=== PATIENT | female | born 1945 | race African-American/Black ===

== ENCOUNTER 2016-06-28 17:02 | Inpatient (IN) ==
[2016-06-28] MEDS ORDERED: DILTIAZEM 50 MG/10 ML VIAL IV STA (17:33)
[2016-06-28] MEDS ORDERED: METOCLOPRAMIDE 10 MG/2 ML VIAL IV STA (17:33)
[2016-06-28] MEDS ORDERED: ONDANSETRON 4 MG/2 ML VIAL IV STA (17:33)
--- NOTE | 2016-06-28 17:42 | Emergency Department Note ---
Arrival - Arrival Chief Complaint: Shortness of Breath Stated Complaint: SOB ED Nursing Triage Note: Pt c/o SOB, ear pain, and productive cough (yellow sputum) since yesterday. Pt unable to stand for weight. Mode of Arrival: Wheelchair Limitations: No Limitations Source: Patient Time Seen by Provider: 06/28/16 17:33 - History of Present Illness HPI Narrative: This 70-year-old black female hospitalized here in March for SVT and pulmonary embolus presents with 24 hours of increased dyspnea over her baseline. Patient since discharged has had significant dyspnea at rest and exertion and impact has pretty much been bedbound since her discharge between the dyspnea on exertion and advanced arthritic complaints of the knees and ankles. The patient today does not complain of any chest pain or hemoptysis and states she cannot sense that her heart rate is erratic or rapid. However the medication she brings as her daily regimen did not include her amiodarone or Xarelto. She states she thought she was taking these; however, they are not be found in any of her bags. She states she is followed regularly by a Dr. Hoffmann but has not seen him in some time. Currently in her wheelchair at rest she does not appear in any significant discomfort. Family members state that the only medicines they know she takes or what is in her accompanying bag, and again this does not include amiodarone or Xarelto. Onset (ago): hour(s) (Patient presents with 24 hours of increase shortness of breath over her normal complaints.) Allergies/Adverse Reactions: Allergies Allergy/AdvReac Type Severity Reaction Status Date / Time adhesive tape Allergy RASH Unverified 03/26/16 19:05 Penicillins Allergy RASH Unverified 03/26/16 19:04 Home Medications: Home Medications Medication Instructions Recorded Confirmed Type Glimepiride 4 mg PO DAILY 03/26/16 06/28/16 History Letrozole 2.5 mg PO DAILY 03/26/16 06/28/16 History metFORMIN [Glucophage] 500 mg PO BID 03/26/16 06/28/16 History Rivaroxaban [Xarelto] 15 mg PO BID W/MEALS #60 tablet 03/29/16 06/28/16 Rx Ascorbic Acid [Vitamin C] 1,000 mg PO DAILY 06/28/16 06/28/16 History Losartan [Cozaar] 25 mg PO DAILY 06/28/16 06/28/16 History Magnesium Oxide 400 mg PO BID 06/28/16 06/28/16 History Metoprolol Tartrate Tab [Lopressor 50 mg PO BID 06/28/16 06/28/16 History Tab] Review of System - Review of System 12 point system: reviewed and no additional remarkable complaints except as stated - Review of System Constitutional: Present: as per HPI Respiratory: Present: as per HPI Cardiovascular: Present: as per HPI Musculoskeletal: Present: as per HPI Medical,Surgical,& Family Hx - Medical History Cardio: History of: Cardiac Dysrhythmia (psvt 2009, AFIB), Hypertension HEENT: History of: Eye Problem (eye surgery bilat) Endocrine: History of: Diabetes Mellitus (IDDM), Diabetes Mellitus (NIDDM) Respiratory: History of: Pulmonary Embolism - Family History Family History: Reports;: Family Hypertension - Social History Smoking Status: Never smoker Exam Physical Examination: GENERAL: Well developed, well nourished elderly black female in no acute distress. HEENT: Normocephalic. No trauma. Moist mucous membranes. EOMI. PERRLA. ENT NML NECK: Supple. No adenopathy. CARDIAC: Irregular. No murmurs. Heart rate 160 CHEST: Clear to auscultation. No respiratory distress. O2 sat 97% ABDOMEN: Soft. Nontender. Active bowel sounds. EXTREMITIES: No trauma. Pain and crepitation on range of motion of both knees and ankles. No pedal edema. SKIN: No diaphoresis. No rash. NEURO: Alert. Oriented 3. Motor, sensory, vibratory intact. No focal deficits. Vital Signs: Vital Signs Temperature 97.9 F 06/28/16 18:49 Pulse Rate 122 H 06/28/16 18:49 Respiratory Rate 20 06/28/16 18:49 Blood Pressure 143/102 06/28/16 18:49 O2 Sat by Pulse Oximetry 97 06/28/16 17:15 Course - Reevaluation(s) Reevaluation #1: I have advised patient of the serious nature of her illness with a large saddle embolus that will need to be treated per EKOS procedure - Consultations Consultation #1: Discussed with Dr. Ramirez who will take the patient to [facility] for procedure. Results - Labs CBC & BMP: 06/28/16 17:49 06/28/16 17:49 Labs: I reviewed the lab and noted the greatly elevated d-dimer - Impressions EKG mixed supraventricular tachycardia at 160 this tracing the patient jumped to heart rate of 230. With left axis deviation probable old septal VA and diffuse ST changes. Shortly after this tracing the patient jumped to a rate of 230. EKG post 300 mg amiodarone: Atrial fibrillation at [address] depression. No acute injury pattern noted. - Diagnostic Findings Procedure: Chest x-ray: image reviewed by me, report reviewed by me (Plain film : No acute disease), CT - chest: image reviewed by me, report reviewed by me ( CTA: Large saddle embolus) Disposition Clinical Impression: Saddle embolus, Recurrent atrial fibrillation Case discussed with: patient, patient's family Disposition: Still a Patient Condition: Critical Time of Disposition: 19:07
[2016-06-28] MEDS ORDERED: ENOXAPARIN 100 MG/ML SYRINGE SUBCUT STA (17:46)
[2016-06-28] MEDS ORDERED: METOCLOPRAMIDE 10 MG/2 ML VIAL ONE (17:46)
[2016-06-28] MEDS ORDERED: DILTIAZEM 50 MG/10 ML VIAL IV ONE (17:47)
[2016-06-28] MEDS ORDERED: ONDANSETRON 4 MG/2 ML VIAL ONE (17:47)
[2016-06-28] MEDS ORDERED: AMIODARONE INJ 150 MG in DEXTROSE 5% 100 ML IV ONE (17:51)
[2016-06-28] MEDS ORDERED: AMIODARONE 150 MG/3 ML VIAL ONE ×2 (17:58→18:00)
[2016-06-28] MEDS ORDERED: DILTIAZEM INJ 125 MG in SODIUM CHLORIDE 0.9% 100 ML IV SCH (18:00)
--- NOTE | 2016-06-28 18:08 | XRay Report ---
XR chest 1V portable Indication: Shortness of breath Comparison: 26 March 2016 Findings: The heart and mediastinum are stable in size and configuration. The pulmonary vascularity is normal in caliber. No lung infiltrates, effusions, pneumothorax or other abnormality is demonstrated. Impression: No acute cardiopulmonary disease. PROCEDURE INTERPRETED AT [facility] DEPARTMENT OF RADIOLOGY Final Report Signed by: Dr. Koko Hickman
[2016-06-28 18:16] LABS: Basophils % 0.6 % (0.0-0.8); Eosinophils % 0.7 % (0.00-10.9); Hematocrit 38.3 VOL% (35.7-47.0); Hemoglobin 11.6 GM/DL (12.0-16.0); Immature Granulocytes % 0.4 %; Immature Granulocytes Absolute 0.02 #; Lymphocytes # 1.9 10*3/uL (1.4-4.0); Mean Corpuscular HGB Conc 30.3 GM/DL (32-36); Mean Corpuscular Hemoglobin 29 PG (27-34); Mean Corpuscular Volume 94.3 FL (87-102); Mean Platelet Volume 11.4 FL (9.6-12.0); Monocytes # 0.4 10*3/uL (0.11-0.8); Monocytes % 7.5 % (1.7-12.7); Neutrophils % 55.8 % (38.7-73.9); Platelet Count 236 T/CUMM (130-400); Red Blood Count 4.06 MC/CUMM (3.8-5.5); Red Cell Distribution Width 19.5 % (9.3-17.3); White Blood Count 5.5 T/CUMM (4-12)
[2016-06-28 18:28] LABS: INR 1.2; PT Patient Result 12.8 SECS; Partial Thromboplastin Time 27.7 SECS (0-40)
[2016-06-28 18:37] LABS: Albumin 3.4 G/DL (3.4-5.0); Bilirubin,Total 0.9 MG/DL (0.2-1.0); Total Protein 9.2 G/DL (6.4-8.3)
[2016-06-28 18:38] LABS: Magnesium 2.2 MG/DL (1.8-2.4); Osmolality,Calculated 288.4 MOS/KG (273-304); Potassium 3.5 MMOL/L (3.5-5.1)
--- NOTE | 2016-06-28 18:38 | EKG Report ---
Stationary ECG Study [facility] ER Test Date: 06/28/2016 5:22:07 PM Pat Name: VANE BOTELLO Department: Room: Gender: F Technical Consultant: Israel Rivas : 1945 Requested by: John Ibrahim Order Number: [id number] Reading MD: JOSH WATTS Intervals [place] Rate: 160 P: 999 ME: 0 QRS: -68 QRSD: 108 T: 93 QT: 281 QTc: 370 Interpretive Statements ATRIAL FIBRILLATION WITH RAPID VENTRICULAR RESPONSE LEFT AXIS DEVIATION POOR R-WAVE PROGRESSION Electronically Signed On 06-28-16 18:39:48 CDT by JOSH WATTS [email or web address]
[2016-06-28 18:42] LABS: Troponin I Only 0.075 NG/ML (0.00-0.045)
[2016-06-28] MEDS ORDERED: ENOXAPARIN 100 MG/ML SYRINGE SUBCUT ONE (19:00)
--- NOTE | 2016-06-28 19:09 | CT Report ---
CT chest pulmonary embolism Indication: Recurrent pulmonary embolism Comparison: 26 March 2016 Technique: Axial CT imaging of the chest is performed with intravenous contrast. Contrast dose is 80 cc of Omnipaque 350. Findings: Large amount of thrombus is present in both pulmonary arteries extending into the branches of both upper and lower lobes. No other abnormality is identified in the pulmonary arteries or veins. The pulmonary vessel caliber is within normal limits. The heart, mediastinum and great vessels appear within normal limits. Lung parenchyma shows no evidence of airspace disease or abnormal density. No effusion or pneumothorax is present. Impression: Extensive pulmonary thromboembolism as described above. No other acute process demonstrated. This CT exam was performed using one or more the following dose reduction techniques: Automated exposure control, adjustment of the MA and/or KV according to patient size, or use of iterative reconstruction technique. PROCEDURE INTERPRETED AT [facility] DEPARTMENT OF RADIOLOGY Final Report Signed by: Dr. Koko Hickman
[2016-06-28] MEDS ORDERED: LIDOCAINE 1% 20 ML VIAL ONE (19:26)
[2016-06-28] MEDS ORDERED: HEPARIN/NACL 0.9% 2 UNITS/ML 1,000 ML IV ONE (19:26)
--- NOTE | 2016-06-28 19:44 | Cardiology History & Physical ---
History of Present Illness History of present illness: Cardiology note history and physical 70-year-old woman brought in by her daughter Juanis with increasing shortness of breath and palpitations. Patient had SVT rate around 220 and converted to atrial fibrillation per Dr. Guzman CT the chest shows large bilateral pulmonary emboli with sliver of saddle embolus. She has elevated troponin, elevated d- dimer, Elevated BNP 662. Blood pressure is currently 120/70 pulse is 110 and irregular O2 sat is 100% on 3 L cannula. She is alert but hard of hearing and dyspneic to conversation. Patient has a history of SVT and right pulmonary embolus diagnosed March 26, 2016. She was treated with Lovenox and amiodarone and converted to sinus rhythm. According to Dr. Messer's note, this was her second episode of SVT and pulmonary embolus and he told the patient that she will need lifelong anticoagulation. The patient a longer taking Xarelto. She apparently stopped amiodarone due to rash. I have personally reviewed all of her medications. Currently she is taking metoprolol 50 mg twice daily, mag oxide 4 mg twice daily , losartan 25 mg daily, metformin 500 mg twice daily, vitamin C daily, letrozole 2.5 milligrams daily and Amaryl 4 mg daily. The patient does not know the names of her medications. She clearly is not taking any anticoagulation. Chronic hypertension for about 10 years. Type 2 diabetes. No history of stroke. Lifetime non-smoker and nondrinker. 5 feet 11 inches tall 210 pounds. The patient is quite sedentary due to arthritic knees and hips which limits her mobility. She has chronic dyspnea and easy fatigability which has clearly gotten worse. Amiodarone causes rash. INR 1.2 d-dimer 14.6 sodium 140 Potassium 3.5 chloride 104 CO2 21 BUN 14 creatinine 1.3 glucose 263 Magnesium 2.2 AST 28 ALT 18 Troponin 0.075 BNP 662 albumin 3.4 the patient lives with her daughter in [place]. She has 2 daughters and 6 grandchildren. Her local doctor is Fam Carpio in [place]. Blood pressure 120/70 pulse 110 irregular respirations 26 O2 sat high percent on 3 L cannula. The patient is edentulous. She does not wear dentures. She is dyspneic to conversation. No carotid bruit. Decreased breath sounds bilaterally with few rhonchi in the right base irregular rhythm no murmur abdomen obese soft benign femoral pulses are 2+ distal pulses are 1+. She has diabetic skin changes on her lower extremities. 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 Noncompliant with Xarelto. The patient is taking no anticoagulation at this time Hypertension Diabetes Obesity Sedentary and deconditioned Hard of hearing Lifetime non-smoker Plan Emergent Ekos bilateral pulmonary artery catheters with localized TPA infusion This patient will need lifelong anticoagulation I reviewed the CT of the chest with the her daughter Juanis and with Dr. Guzman to impress upon her the critical situation that we are facing, and the need for lifelong anticoagulation. According to Dr. Messer's note, this is her third PE. Home Medications Medication Instructions Recorded Confirmed Type Glimepiride 4 mg PO DAILY 03/26/16 06/28/16 History Letrozole 2.5 mg PO DAILY 03/26/16 06/28/16 History metFORMIN [Glucophage] 500 mg PO BID 03/26/16 06/28/16 History Rivaroxaban [Xarelto] 15 mg PO BID W/MEALS #60 tablet 03/29/16 06/28/16 Rx Ascorbic Acid [Vitamin C] 1,000 mg PO DAILY 06/28/16 06/28/16 History Losartan [Cozaar] 25 mg PO DAILY 06/28/16 06/28/16 History Magnesium Oxide 400 mg PO BID 06/28/16 06/28/16 History Metoprolol Tartrate Tab [Lopressor 50 mg PO BID 06/28/16 06/28/16 History Tab] Allergies Allergy/AdvReac Type Severity Reaction Status Date / Time adhesive tape Allergy RASH Unverified 03/26/16 19:05 Penicillins Allergy RASH Unverified 03/26/16 19:04 Medical,Surgical,& Family Hx - Medical History Cardio: History of: Cardiac Dysrhythmia (psvt 2009, AFIB), Hypertension HEENT: History of: Eye Problem (eye surgery bilat) Endocrine: History of: Diabetes Mellitus (IDDM), Diabetes Mellitus (NIDDM) Respiratory: History of: Pulmonary Embolism - Family History Family History: Reports;: Family Hypertension - Social History Smoking Status: Never smoker Cardiology Physical Exam - Constitutional Vitals: Vital Signs Temp Pulse Resp BP Pulse Ox 97.9 F 122 H 20 143/102 97 06/28/16 18:49 06/28/16 18:49 06/28/16 18:49 06/28/16 18:49 06/28/16 17:15 Intake and Output 06/28/16 06/28/16 06/28/16 07:59 15:59 23:59 Intake Total Balance Intake: IV Cordarone Inj 150 mg In D5 100 ml @ 618 mls/hr IV ONCE ONE Rx#:[id number] Other: Weight 99.79 kg Patient Weight 06/28/16 23:59 Weight 99.79 kg Result/EKG - Labs CBC & BMP: 06/28/16 17:49 06/28/16 17:49 Labs: Laboratory Results - last 24 hr 06/28/16 06/28/16 06/28/16 17:49 17:49 17:49 WBC 5.5 RBC 4.06 Hgb 11.6 L Hct 38.3 MCV 94.3 MCH 29 MCHC 30.3 L RDW 19.5 H Plt Count 236 MPV 11.4 Neut % (Auto) 55.8 Lymph % (Auto) 35.0 [place] % (Auto) 7.5 Eos % (Auto) 0.7 Baso % (Auto) 0.6 Neut # (Auto) 3.0 Lymph # (Auto) 1.9 [place] # (Auto) 0.4 Eos # (Auto) 0.0 Baso # (Auto) 0.0 Immature Gran % 0.4 Nucleated RBC % 0.0 Immature Gran # 0.02 Nucleated RBCs # 0.00 INR 1.2 PT Patient/Control Mix 12.8 D-Dimer, Quantitative Circ Anticoag PTT 27.7 Sodium 140 Potassium 3.5 Chloride 104 Carbon Dioxide 21 Anion Gap 18.5 H BUN 14 Creatinine 1.30 H GFR Calculation 60 BUN/Creatinine Ratio 10.00 Glucose 263 H Calculated Osmolality 288.4 Calcium 9.0 Magnesium 2.2 Total Bilirubin 0.90 AST 28 ALT 18 Alkaline Phosphatase 98 Total Creatine Kinase CK-MB (CK-2) Troponin I B-Natriuretic Peptide Total Protein 9.2 H Albumin 3.4 Globulin 5.8 H Albumin/Globulin Ratio 0.5 L 06/28/16 06/28/16 06/28/16 17:49 17:49 17:49 WBC RBC Hgb Hct MCV MCH MCHC RDW Plt Count MPV Neut % (Auto) Lymph % (Auto) [place] % (Auto) Eos % (Auto) Baso % (Auto) Neut # (Auto) Lymph # (Auto) [place] # (Auto) Eos # (Auto) Baso # (Auto) Immature Gran % Nucleated RBC % Immature Gran # Nucleated RBCs # INR PT Patient/Control Mix D-Dimer, Quantitative 14.6 Circ Anticoag PTT Sodium Potassium Chloride Carbon Dioxide Anion Gap BUN Creatinine GFR Calculation BUN/Creatinine Ratio Glucose Calculated Osmolality Calcium Magnesium Total Bilirubin AST ALT Alkaline Phosphatase Total Creatine Kinase 52 CK-MB (CK-2) 1.0 Troponin I 0.075 H B-Natriuretic Peptide 662 H Total Protein Albumin Globulin Albumin/Globulin Ratio
[2016-06-28] MEDS ORDERED: HYDROmorphone 2 MG/1 ML VIAL ONE (19:54)
[2016-06-28] MEDS ORDERED: MIDAZOLAM 2 MG/2 ML VIAL ONE (19:54)
[2016-06-28] MEDS ORDERED: ALTEPLASE 2 MG VIAL ONE (20:26)
[2016-06-28] MEDS ORDERED: LABETALOL 20 MG/4 ML SYRINGE IV ONE (21:11)
[2016-06-28] MEDS ORDERED: ONDANSETRON 4 MG/2 ML VIAL IV PRN (21:21)
[2016-06-28] MEDS ORDERED: ALTEPLASE 12 MG in SODIUM CHLORIDE 0.9% 240 ML IV SCH (21:30)
[2016-06-28] MEDS ORDERED: HEPARIN DRIP 25,000 UNITS/500 ML PREMIX IV SCH ×2 (21:30)
--- NOTE | 2016-06-28 21:39 | Event Note ---
Procedure note Bilateral EKOS pulmonary artery catheters with localized TPA infusion Pre-op diagnosis large bilateral pulmonary emboli with partial saddle embolus and elevated troponin, elevated BNP, dilated right ventricle with tachycardia Postop diagnosis same. The patient status post right pulmonary embolus March 2016. She failed to continue to take her Xarelto. The patient is quite sedentary and essentially wheelchair-bound. She returned with progressive shortness of breath and CT the chest showed massive bilateral pulmonary emboli and a partial saddle thrombus. The right femoral groin was prepped and draped in sterile fashion and local anesthesia was achieved with a filtration 1% Xylocaine. Using a Cook needle the right femoral vein was cannulated twice, and 2 separate 6 [place] sheaths were inserted into the right femoral vein. A long exchange wire was then used over pigtail catheter to engage the right pulmonary artery. The pigtail catheter exchanged for a EKOS pulmonary artery catheter which was placed into the right pulmonary artery. The ultrasound catheter was then introduced and passed into the right pulmonary artery. The side ports were then flushed and coolant solution was started and localized TPA was delivered through the side- port. Using the long J exchange wire and the pigtail catheter the procedure was then repeated and the left pulmonary artery was cannulated. The EKOS catheter was introduced over the wire and placed into the left pulmonary artery and the ultrasound catheter was introduced. The side ports were flushed and the coolant solution with normal saline was started and the TPA infusion was also started via the side-port. The sheaths were then sutured in place. Currently blood pressure is 100/73 pulse is 110 and O2 sat is 91 percent on 2 L cannula. The patient was transported to CCU and guarded condition. She will remain on TPA infusion for 12 hours .lab data and echo will be checked in the morning. Findings and plan discussed with her daughter Juanis. This patient needs lifelong anticoagulation.
[2016-06-28 22:37] LABS: Apearance,Urine Slightly Hazy (Clear); Bacteria,Urine Many /HPF (Few); Bilirubin,Urine Negative (Negative); Blood, Urine Negative (Negative); Glucose,Urine (UA) Negative (Negative); Ketones,Urine Negative (Negative); Mucus,Urine Occasional /LPF (Occasional); Nitrite,Urine Negative (Negative); Protein,Urine 30 MG/DL; Urine Color Yellow (Yellow); Urine Specific Gravity 1.029 (1.001-1.035); WBC,Urine 1 /HPF (0-6)
[2016-06-28 23:30] LABS: INR 1.3; PT Patient Result 14.5 SECS; Partial Thromboplastin Time 36.5 SECS (0-40)
[2016-06-29 05:26] LABS: Basophils % 0.5 % (0.0-0.8); Eosinophils % 0.5 % (0.00-10.9); Hemoglobin 10.2 GM/DL (12.0-16.0); Immature Granulocytes % 0.5 %; Immature Granulocytes Absolute 0.02 #; Lymphocytes # 0.9 10*3/uL (1.4-4.0); Lymphocytes % 21.4 % (21.3-54.2); Mean Corpuscular HGB Conc 30.9 GM/DL (32-36); Mean Corpuscular Hemoglobin 29 PG (27-34); Mean Corpuscular Volume 94.6 FL (87-102); Mean Platelet Volume 10.5 FL (9.6-12.0); Monocytes # 0.4 10*3/uL (0.11-0.8); Monocytes % 9.3 % (1.7-12.7); NRBC # 0.02 10*3/uL; Neutrophils # 2.7 10*3/uL (1.4-7.4); Neutrophils % 67.8 % (38.7-73.9); Platelet Count 168 T/CUMM (130-400); Red Blood Count 3.49 MC/CUMM (3.8-5.5); Red Cell Distribution Width 19.5 % (9.3-17.3)
[2016-06-29 05:33] LABS: INR 1.2
[2016-06-29 06:02] LABS: Calcium 8.3 MG/DL (8.5-10.1); Osmolality,Calculated 287.3 MOS/KG (273-304); Potassium 3.7 MMOL/L (3.5-5.1)
--- NOTE | 2016-06-29 07:25 | Cardiology Progress Note ---
Cardiology - PN: Subj Interval history: Cardiology note Day 1 status post Ekos bilateral pulmonary artery catheters with localized TPA infusion for recurrent large bilateral pulmonary emboli Alert and responsive PO2 is 97 on 50% Ventimask Telemetry shows sinus tach rate 100-110 Blood pressure 156/104 Regular rhythm no murmur Decreased breath sounds few crackles on the right side Right groin soft and dry Distal pulses 2+ Lab data today White count 4.0 hemoglobin 10.2 hematocrit 33.0 platelet count 168k Sodium 141 potassium 3.7 chloride 109 CO2 20 BUN 14 creatinine 0.80 glucose 208 Impression This is the patient's third documented pulmonary embolus. This one was due to noncompliance with Xarelto. 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 Horowitz. I believe patient needs IVC filter. TPA infusion finishes around 9:30 AM, and if Dr. Horowitz agrees, patient could be sent to radiology with venous sheath in place Exam (Progress Note) - Constitutional Vitals: Period Temp Pulse Resp BP Sys/Contreras Pulse Ox Last 24 Hr 96.7 F-97.1 F 101-112 14-28 94-149/66-108 89-97 Result/EKG - Labs CBC & BMP: 06/29/16 04:51 06/29/16 04:51 Labs: Laboratory Results - last 24 hr 06/28/16 06/28/16 06/29/16 22:20 23:02 04:51 WBC RBC Hgb Hct MCV MCH MCHC RDW Plt Count MPV Neut % (Auto) Lymph % (Auto) [place] % (Auto) Eos % (Auto) Baso % (Auto) Neut # (Auto) Lymph # (Auto) [place] # (Auto) Eos # (Auto) Baso # (Auto) Immature Gran % Nucleated RBC % Immature Gran # Nucleated RBCs # INR 1.3 1.2 PT Patient/Control Mix 14.5 13.0 Fibrinogen 296 Circ Anticoag PTT 36.5 D Sodium Potassium Chloride Carbon Dioxide Anion Gap BUN Creatinine GFR Calculation BUN/Creatinine Ratio Glucose Calculated Osmolality Calcium Urine Color Yellow Urine Appearance Slightly hazy Urine pH 5.0 Ur Specific [place] 1.029 Urine Protein 30 Urine Glucose (UA) Negative Urine Ketones Negative Urine Blood Negative Urine Nitrate Negative Urine Bilirubin Negative Urine Urobilinogen 2.0 H Urine Leukocytes Negative Urine WBC 1 Urine Bacteria Many Urine Mucus Occasional Ur Culture Indicated? Not indicated 06/29/16 06/29/16 04:51 04:51 WBC 4.0 RBC 3.49 L Hgb 10.2 L Hct 33.0 L MCV 94.6 MCH 29 MCHC 30.9 L RDW 19.5 H Plt Count 168 D MPV 10.5 Neut % (Auto) 67.8 Lymph % (Auto) 21.4 [place] % (Auto) 9.3 Eos % (Auto) 0.5 Baso % (Auto) 0.5 Neut # (Auto) 2.7 Lymph # (Auto) 0.9 L [place] # (Auto) 0.4 Eos # (Auto) 0.0 Baso # (Auto) 0.0 Immature Gran % 0.5 Nucleated RBC % 0.5 Immature Gran # 0.02 Nucleated RBCs # 0.02 INR PT Patient/Control Mix Fibrinogen Circ Anticoag PTT Sodium 141 Potassium 3.7 Chloride 109 H Carbon Dioxide 20 L Anion Gap 15.7 H BUN 14 Creatinine 0.80 GFR Calculation 107 BUN/Creatinine Ratio 17.00 Glucose 208 H Calculated Osmolality 287.3 Calcium 8.3 L Urine Color Urine Appearance Urine pH Ur Specific [place] Urine Protein Urine Glucose (UA) Urine Ketones Urine Blood Urine Nitrate Urine Bilirubin Urine Urobilinogen Urine Leukocytes Urine WBC Urine Bacteria Urine Mucus Ur Culture Indicated?
--- NOTE | 2016-06-29 07:27 | Pulmonology Consult Note ---
History of Present Illness Chief complaint: Shortness of breath, palpitations History of present illness: Ms. Ricketts is a 70 year old female came in with increased shortness of breath and had atrial fibrillation with a rapid ventricular response. She had a CT PE protocol showing massive pulmonary embolism. Very large volume going to both main pulmonary arteries. She had an elevated BNP and an elevated d-dimer. D- dimer 14.6 BNP was 662. She was tachycardic even after treatment of her tachyarrhythmias. She was taken to the Pharmac[facility] and had an EKOS procedure and is now on an infusion of TPA. I was asked to see her to help make a decision about treatment going forward. Looking back at her records and reviewing CT scans she had a pulmonary embolus to the right lower lobe [place] [address] scan. She had a second 1 in March [address] scan. Both of these were relatively small volume and primarily involving the right lower lobe. The one that she said now is a massive pulmonary embolus and life- threatening. There is some question as to whether the patient was taking her anticoagulants. She was sent home on Xarelto 15 mg twice a day in March. Based on the volume of the pulmonary embolus on CT scan alone, patient is a candidate for an IVC filter. Impression #1 recurrent pulmonary thromboembolic disease, massive with elevated BNP, large volume of embolism, tachycardia, enlarged right ventricle CT scan. This was appropriately treated with TPA. I certainly agree that an IVC filter is indicated. It is not clear whether patient was taking Xarelto or not, but by the volume of the pulmonary embolus along she needs a filter. 2. Diabetes mellitus 3. Hypertension 4. Severe degenerative arthritis with inactivity. My recommendations are as above. I was unable to get into the assessment/plan portion of the report Home Medications Medication Instructions Recorded Confirmed Type Glimepiride 4 mg PO DAILY 03/26/16 06/28/16 History Letrozole 2.5 mg PO DAILY 03/26/16 06/28/16 History metFORMIN [Glucophage] 500 mg PO BID 03/26/16 06/28/16 History Rivaroxaban [Xarelto] 15 mg PO BID W/MEALS #60 tablet 03/29/16 06/28/16 Rx Ascorbic Acid [Vitamin C] 1,000 mg PO DAILY 06/28/16 06/28/16 History Losartan [Cozaar] 25 mg PO DAILY 06/28/16 06/28/16 History Magnesium Oxide 400 mg PO BID 06/28/16 06/28/16 History Metoprolol Tartrate Tab [Lopressor 50 mg PO BID 06/28/16 06/28/16 History Tab] Allergies Allergy/AdvReac Type Severity Reaction Status Date / Time adhesive tape Allergy RASH Unverified 03/26/16 19:05 Penicillins Allergy RASH Unverified 03/26/16 19:04 12 point system: reviewed and no additional remarkable complaints except as stated - Constitutional Constitutional: Present: fatigue - Cardiovascular Cardiovascular: Present: dyspnea, dyspnea on exertion, palpitations - Respiratory Respiratory: Present: dyspnea, dyspnea on exertion - Musculoskeletal Musculoskeletal: Present: arthralgias (She is very inactive due to severe arthritis involving her knees. Mostly in wheelchair.) Exam (Pulmonay) H&P - Constitutional Vitals: Period Temp Pulse Resp BP Sys/Contreras Pulse Ox Last 24 Hr 96.7 F-97.1 F 101-112 14-28 94-149/66-108 89-97 Exam: Pulse is 110 and fairly regular but on EKG looks like atrial flutter. Blood pressure 120 systolic. Vital signs otherwise normal. O2 sat 96% on 50% facemask oxygen. Pupils react to light. Throat is clear. Neck supple no bruits. Chest sounds clear equal breath sounds. Heart normal rate and rhythm no murmurs no rubs no gallops. Abdomen soft nontender no masses. Bowel sounds present. Extremities no clubbing or cyanosis. She has a trace of edema bilaterally. Calves are nontender. Medical,Surgical,& Family Hx - Medical History Cardio: History of: Cardiac Dysrhythmia (psvt 2009, AFIB), Hypertension HEENT: History of: Eye Problem (eye surgery bilat, cataracts) Endocrine: History of: Diabetes Mellitus (IDDM), Diabetes Mellitus (NIDDM) Respiratory: History of: Bronchitis, Pulmonary Embolism, Pneumonia - Family History Family History: Comment Only: Family Cancer (breast cancer, mom), Family Diabetes (2 brothers ), Family Hypertension (brother), Family Stroke (brother) - Social History Smoking Status: Never smoker Frequency of Alcohol Use: None Results - Labs CBC & BMP: 06/29/16 04:51 06/29/16 04:51 Lab Results: I have reviewed the past 24 hour labs - Diagnostic Findings Procedure: CT - chest: image reviewed by me (Large pulmonary emboli to bothPulmonary arteries)
[2016-06-29] MEDS ORDERED: HEPARIN DRIP 25,000 UNITS/500 ML PREMIX IV SCH (08:30)
[2016-06-29] MEDS: GLIMEPIRIDE 4 MG TABLET PO SCH (08:52)
[2016-06-29] MEDS: MAGNESIUM OXIDE 400 MG TABLET PO SCH ×2 (08:52→20:48)
[2016-06-29] MEDS: metFORMIN 500 MG TABLET PO SCH ×2 (08:52→20:48)
[2016-06-29] MEDS: ASCORBIC ACID 500 MG TABLET PO SCH (08:52)
[2016-06-29] MEDS: LETROZOLE 2.5 MG TABLET PO SCH (08:52)
[2016-06-29] MEDS: METOPROLOL TARTRATE 50 MG TABLET PO SCH ×2 (08:52→20:47)
--- NOTE | 2016-06-29 08:52 | EKG Report ---
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
--- NOTE | 2016-06-29 09:29 | IR History and Physical Update ---
IR Pre-Procedure - History and Physical H&P was reviewed, the patient examined and there: are no changes in the patients condition since last H&P was completed. Reason for procedure:: 70-year-old female with recurrent pulmonary emboli. Questionable compliance with anticoagulation as an outpatient. Underwent EKOS thrombolyzes of PE overnight. Treatment is now complete, and primary service requesting IVC filter placement. - Dictation Physical: refer to H&P completed by admitting physician - Physical Exam Vital Signs: Last Vital Signs Temp 97.0 F L 06/29/16 04:00 Pulse 112 H 06/29/16 06:00 Resp 22 06/29/16 06:00 BP 146/105 06/29/16 06:00 Pulse Ox 96 06/29/16 06:00 Mental Status: alert and oriented - Sedation IR anesthesia plan for sedation: none ASA Class: III - Risks Risks: Procedures explained. Risks discussed include, but not limited to, the following:[IVC filter thrombosis, vascular injury, filter fracture, and ability to retrieve filter should we attempt retrieval in the future] All questions answered. The following alternatives were discussed:[Anticoagulation] Risks and benefits discussed with: patient Consent obtained from: patient Assessment and Plan - Time spent with patient Time spent with patient: Less than 30 minutes (1) Pulmonary embolus, right Status: Chronic Assessment and plan: Assessment: Recurrent PE, questionable compliance with outpatient anticoagulation. Plan: IVC filter placement today through existing access. Current Visit: Yes
[2016-06-29 09:49] LABS: Partial Thromboplastin Time 33.5 SECS (0-40)
--- NOTE | 2016-06-29 10:20 | Post Interventional Procedure ---
Pre-op diagnosis: PE, noncompliance on outpatient anticoag Post-op diagnosis: same Procedure: IVC filter placement Contrast: Omni 350, 30 cc Flouroscopy: 0.9 min Radiologist: Jay Painter Specimens: none sent Estimated blood loss: none Complications: none Condition: stable Assessment and Plan - Time spent with patient Time spent with patient: Less than 30 minutes (1) Pulmonary embolus, right Status: Chronic Assessment and plan: Assessment: Recurrent PE, questionable compliance with outpatient anticoagulation. Plan: IVC filter placement today through existing access. Current Visit: Yes
--- NOTE | 2016-06-29 10:45 | Interventional Radiology Rpt ---
IR IVC filter placement Indication: Recurrent PE. Noncompliance on outpatient anticoagulation. Mechanical thrombolysis overnight. IVC FILTER PLACEMENT Description: A formal timeout was performed. Maximum sterile barrier technique was used. The right groin was prepped and draped in a sterile fashion, including 2 right common femoral vein sheaths. Through the cephalad sheath, an inferior venacavogram was performed. Normal anatomy was present. The lowest renal vein inflow was identified on the left. The sheath was exchanged over a wire for a Kajal IVC filter sheath. The filter was then advanced and deployed such that the apex is at the lowest renal vein inflow. The deployment apparatus was removed. The second sheath was removed as well. Hemostasis achieved with manual compression. Medications: None. Contrast: Omnipaque 350, 30 cc. Fluoroscopy: 0.9 minutes. Impression: Infrarenal IVC filter placement as described. If the intent is retrieval of the IVC filter, recommend scheduling retrieval to be performed within the next 2-3 months. PROCEDURE INTERPRETED AT [facility] DEPARTMENT OF RADIOLOGY Final Report Signed by: Jay Painter M.D.
--- NOTE | 2016-06-29 10:49 | Event Note ---
Event note Chart addendum The patient underwent EKOS bilateral pulmonary artery catheters and localized TPA infusion last night. In addition, she received a contrast injection in the left pulmonary artery with a pigtail catheter to assist with catheter placement.
--- NOTE | 2016-06-29 17:50 | ECHO Report ---
Eleanor Ricketts Exam Date: 06/29/2016 09:04 Referring Physician: Technologist: Tatiana Brewster Age: 70 Ht (in): 71 Wt (lb): 220 Gender: F Exam Location: [facility] Echo Indications: diabetes, hypokalemia, SVT, A Fib, Rt. pulmonary embolus BP: 146 / 105 HR: 112 Rhythm: tachycardia Technical Quality: IMPRESSIONS Mild - moderate concentric left ventricular hypertrophy with diastolic dysfunction. Left ventricular ejection fraction is estimated at 20 %. Normal right ventricular size. Normal right atrial size. Moderately increased left atrial diameter. Mildly thickened mitral valve with mild mitral regurgitation. Aortic valve sclerosis without stenosis or regurgitation. Morphologically normal tricuspid valve. Moderate tricuspid valve regurgitation. Tricuspid regurgitation velocities suggest a PAP of 34.1 mmHg + RAP. Morphologically normal pulmonic valve. No pericardial effusion. Normal size aortic root and proximal ascending aorta. MEASUREMENTS (Male / Female) Normal Values 2D ECHO LV Diastolic Diameter PLAX 5.0 cm 4.2 - 5.9 / 3.9 - 5.3 cm LV Systolic Diameter PLAX 4.2 cm LV Fractional Shortening PLAX 16.4 % IVS Diastolic Thickness 1.2 cm 0.6 - 1.0 / 0.6 - 0.9 cm LVPW Diastolic Thickness 1.2 cm 0.6 - 1.0 / 0.6 - 0.9 cm RV Internal Dim ED PLAX 3.1 cm Aortic Root Diameter 3.4 cm LA Systolic Diameter LX 4.6 cm 3.0 - 4.0 / 2.7 - 3.8 cm DOPPLER TR Peak Velocity 292.0 cm/s TR Peak Gradient 34.1 mmHg FINDINGS Left Ventricle Mild - moderate concentric left ventricular hypertrophy with diastolic dysfunction.left ventricular ejection fraction is estimated at 20 %. Right Ventricle Normal right ventricular size. Right Atrium Normal right atrial size. Left Atrium Moderately increased left atrial diameter. Mitral Valve Mildly thickened mitral valve with mild mitral regurgitation. Aortic Valve Aortic valve sclerosis without stenosis or regurgitation. Tricuspid Valve Morphologically normal tricuspid valve. Moderate tricuspid valve regurgitation. Tricuspid regurgitation velocities suggest a PAP of 34.1 mmHg + RAP. Pulmonic Valve Morphologically normal pulmonic valve. Pericardium No pericardial effusion. Aorta Normal size aortic root and proximal ascending aorta. Karan Escalona MD (Electronically Signed) Final Date: 29 Jun 2016 17:48
[2016-06-29 21:48] LABS: Partial Thromboplastin Time 28.7 SECS (0-40)
--- NOTE | 2016-06-30 06:48 | Pulmonology Progress Note ---
Pulmonary - PN: Subj Interval history: This 70-year-old lady came in with a massive pulmonary embolus. She had TPA infusion per EKOS device. Being started back on Xarelto after completing that. She has an IVC filter now. She remains tachycardic. She is somewhat hypoxemic requiring facemask oxygen to get her O2 sat in the mid 90s. We will try her on some nasal oxygen today. Her echocardiogram has shown a severe cardiomyopathy with ejection fraction 20%. This is a new finding. Cardiology is addressing. Patient feels better and is eating. Okay with me to move to the floor. Unable to get into the assessment and plan section of the electronic medical record today. Impression #1 massive pulmonary embolism continue with Xarelto, agree with IVC filter, okay to get up and ambulate some today. #2 cardiomyopathy defer to cardiology. Exam (Progress Note) - Constitutional Vitals: Period Temp Pulse Resp BP Sys/Contreras Pulse Ox Last 24 Hr 96.9 F-98.0 F 95-120 16-29 111-156/80-113 92-100 Exam: Patient's alert oriented vital signs show pulse in the 120s. O2 sat 95% on 40% facemask. Blood pressure 125/90. Pupils react to light. Throat is clear. Neck supple no bruits. Chest is clear I do not hear any wheezes or rales. Heart rapid rate, normal rhythm no murmurs. Abdomen soft nontender no masses. Extremities no clubbing cyanosis trace of edema. Calves nontender. Results - Labs CBC & BMP: 06/29/16 04:51 06/29/16 04:51 Lab Results: I have reviewed the past 24 hour labs
--- NOTE | 2016-06-30 06:50 | Cardiology Progress Note ---
Cardiology - PN: Subj Interval history: Cardiology note Day 2 status post EKOS with localized TPA infusion for recurrent large bilateral pulmonary emboli Day 1 status post IVC filter Telemetry shows sinus tach rate 110 O2 sat 95% 2 L blood pressure 128/92 No chest pain Decreased breath sounds few rhonchi in the right base no wheezing Regular rhythm but no murmur Abdomen soft benign Right groin has a small ecchymotic bruise but looks good no bruit Echo shows ejection fraction of 20% severe global hypokinesis mildly dilated left atrium, moderate TR PA pressure 45 with no effusion Impression Status post third documented pulmonary embolus Noncompliant with Xarelto Status post IVC filter placement yesterday status post right pulmonary embolus March 2016 Status post pulmonary embolus November 2008 Chronic hypertension Lifetime non-smoker Cardiomyopathy. Echo shows ejection fraction of 20% PA pressure 45 Severe bilateral osteoarthritis knees and left hip which limits her mobility Plan Xarelto 15 mg twice daily Losartan 25 mg daily Lasix 40 mg daily Transfer to telemetry Exam (Progress Note) - Constitutional Vitals: Period Temp Pulse Resp BP Sys/Contreras Pulse Ox Last 24 Hr 96.9 F-98.0 F 95-120 16-29 111-156/80-113 92-100 Result/EKG - Labs CBC & BMP: 06/29/16 04:51 06/29/16 04:51 Labs: Laboratory Results - last 24 hr 06/29/16 06/29/16 09:24 21:32 Fibrinogen 296 283 Circ Anticoag PTT 33.5 28.7
[2016-06-30] MEDS: metFORMIN 500 MG TABLET PO SCH ×2 (08:44→21:09)
[2016-06-30] MEDS: MAGNESIUM OXIDE 400 MG TABLET PO SCH ×2 (08:44→21:09)
[2016-06-30] MEDS: LOSARTAN 25 MG TABLET PO SCH (08:45)
[2016-06-30] MEDS: FUROSEMIDE 40 MG TABLET PO SCH (08:45)
[2016-06-30] MEDS: METOPROLOL TARTRATE 50 MG TABLET PO SCH ×2 (08:45→21:09)
[2016-06-30] MEDS: LETROZOLE 2.5 MG TABLET PO SCH (08:45)
[2016-06-30] MEDS: GLIMEPIRIDE 4 MG TABLET PO SCH (08:45)
[2016-06-30] MEDS: RIVAROXABAN 15 MG TABLET PO SCH ×2 (08:45→16:51)
[2016-06-30] MEDS: ASCORBIC ACID 500 MG TABLET PO SCH (08:45)
[2016-06-30 10:23] LABS: Partial Thromboplastin Time 25.4 SECS (0-40)
[2016-07-01 00:52] LABS: Partial Thromboplastin Time 49.8 SECS (0-40)
[2016-07-01 05:59] LABS: Osmolality,Calculated 280.1 MOS/KG (273-304); Potassium 3.2 MMOL/L (3.5-5.1)
--- NOTE | 2016-07-01 07:40 | Pulmonology Progress Note ---
Pulmonary - PN: Subj Interval history: This 70-year-old lady came in with a massive pulmonary embolus. She had TPA infusion per EKOS device. Being started back on Xarelto after completing that. She has an IVC filter now. She remains tachycardic. She is somewhat hypoxemic requiring facemask oxygen to get her O2 sat in the mid 90s. We will try her on some nasal oxygen today. Her echocardiogram has shown a severe cardiomyopathy with ejection fraction 20%. This is a new finding. Cardiology is addressing. Patient feels better and is eating. Okay with me to move to the floor. Unable to get into the assessment and plan section of the electronic medical record today. Impression #1 massive pulmonary embolism continue with Xarelto, agree with IVC filter, okay to get up and ambulate some today. #2 cardiomyopathy defer to cardiology. 07/01/1971 this 70-year-old lady had a massive pulmonary embolus and subsequent TPA infusion. She is now on Xarelto. Feeling better. Still a little bit tachycardic. On 2 L oxygen has O2 sat 98%. Probably we can get her back to room air but we will check. She can have her Colon removed. She also has a systolic cardiomyopathy with ejection fraction 20%. Defer to cardiology for that. Discussed the case with Dr. Ramirez today. We feel that she needs to follow-up with both of us post discharge. She will need lifelong anticoagulants. Exam (Progress Note) - Constitutional Vitals: Period Temp Pulse Resp BP Sys/Contreras Pulse Ox Last 24 Hr 97.1 F-99.4 F 118-126 18-27 97-140/61-102 91-98 Exam: Patient's alert oriented vital signs show pulse in the 100s. O2 sat 98% on 2L.. Blood pressure 110/80. Pupils react to light. Throat is clear. Neck supple no bruits. Chest is clear I do not hear any wheezes or rales. Heart rapid rate, normal rhythm no murmurs. Abdomen soft nontender no masses. Extremities no clubbing cyanosis trace of edema. Calves nontender. Results - Labs CBC & BMP: 06/29/16 04:51 07/01/16 03:39 Lab Results: I have reviewed the past 24 hour labs Assessment and Plan (1) Saddle embolism of pulmonary artery Status: Acute Assessment and plan: She has had TPA per EKOS, and is now on Xarelto. She will need 15 mg twice daily for 3 weeks and then 20 mg daily probably lifelong. Also has IVC filter due to this being recurrent disease and at least submassive. Current Visit: Yes (2) Heart failure, systolic, due to idiopathic cardiomyopathy Status: Acute Assessment and plan: Echo showed an ejection fraction of 20%. Defer to Dr. Ramirez. Current Visit: Yes (3) Post IVC filter Status: Acute Assessment and plan: No leg edema. Plans will be to keep filter in long-term. Current Visit: Yes (4) Diabetes mellitus type 2 in nonobese Status: Chronic Assessment and plan: Glucoses okay. Current Visit: No
[2016-07-01] MEDS: MAGNESIUM OXIDE 400 MG TABLET PO SCH ×2 (10:01→21:19)
[2016-07-01] MEDS: ASCORBIC ACID 500 MG TABLET PO SCH (10:01)
[2016-07-01] MEDS: LOSARTAN 25 MG TABLET PO SCH (10:02)
[2016-07-01] MEDS: metFORMIN 500 MG TABLET PO SCH ×2 (10:02→21:19)
[2016-07-01] MEDS: GLIMEPIRIDE 4 MG TABLET PO SCH (10:02)
[2016-07-01] MEDS: LETROZOLE 2.5 MG TABLET PO SCH (10:02)
[2016-07-01] MEDS: FUROSEMIDE 40 MG TABLET PO SCH (10:02)
[2016-07-01] MEDS: RIVAROXABAN 15 MG TABLET PO SCH ×2 (10:02→17:07)
[2016-07-01] MEDS: METOPROLOL TARTRATE 50 MG TABLET PO SCH (10:02)
[2016-07-01 10:18] LABS: Partial Thromboplastin Time 40.6 SECS (0-40)
[2016-07-01] MEDS ORDERED: POTASSIUM CHLORIDE 20 MEQ TABLET PO ONE (11:10)
--- NOTE | 2016-07-01 12:16 | Cardiology Progress Note ---
Assessment and Plan - Time spent with patient Time spent with patient: Greater than 30 minutes (1) Noncompliance Status: Chronic Assessment and plan: SEE PLAN OF CARE LISTED BELOW Current Visit: Yes (2) Hypertension Status: Chronic Assessment and plan: SEE PLAN OF CARE LISTED BELOW Current Visit: Yes (3) Diabetes Status: Chronic Assessment and plan: SEE PLAN OF CARE LISTED BELOW Current Visit: Yes (4) Diabetes mellitus type 2 in nonobese Status: Chronic Assessment and plan: SEE PLAN OF CARE LISTED BELOW Current Visit: No (5) Saddle embolism of pulmonary artery Status: Acute Assessment and plan: SEE PLAN OF CARE LISTED BELOW Current Visit: Yes (6) Post IVC filter Status: Chronic Assessment and plan: SEE PLAN OF CARE LISTED BELOW Current Visit: Yes Cardiology - PN: Subj Interval history: Cardiology note Day 3 status post EKOS with localized TPA infusion for recurrent large bilateral pulmonary emboli Day 2 status post IVC filter Telemetry shows sinus tach rate 116 O2 sat 95% 2 L blood pressure 128/76 No chest pain Decreased breath sounds few rhonchi in the right base no wheezing Regular rhythm but no murmur, fast rate Abdomen soft benign Right groin has a small ecchymotic bruise but looks good no bruit Echo shows ejection fraction of 20% severe global hypokinesis mildly dilated left atrium, moderate TR PA pressure 45 with no effusion Impression Status post third documented pulmonary embolus Noncompliant with Xarelto Status post IVC filter placement yesterday Status post right pulmonary embolus March 2016 Status post pulmonary embolus November 2008 Chronic hypertension Lifetime non-smoker Cardiomyopathy. 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 Exam (Progress Note) - Constitutional Vitals: Period Temp Pulse Resp BP Sys/Contreras Pulse Ox Last 24 Hr 97.3 F-99.4 F 119-124 18-23 97-134/61-95 83-98 Exam: General: [Appears well with no apparent distress.] [Pleasant and cooperative. ] [Appears comfortable.] HEENT: [Bilateral arcus noted. Normocephalic, atraumatic. Mucous membranes moist. No jaundice noted. Conjunctiva moist and clear, sclerae anicteric] Neck: No JVD/HJR, no thyromegaly or lymphadenopathy noted. No carotid bruit appreciated Cardiac: [Regular rhythm, fast rate. [No murmur rub or gallop.] Lungs: [Rhonchi noted posteriorly. No wheezing noted. Using oxygen intermittently Abdomen: Soft, bowel sounds normoactive. Nontender and nondistended. No abdominal bruit or thrill noted. No masses noted. Musculoskeletal: No fluid collection. Decreased range of motion is noted. Extremities: Right groin soft, free of hematoma or bruit. Mild ecchymosis noted. ] Upper extremity pulses 2+. Lower extremity pulses 2+. Capillary refill less than 3 seconds. Skin: No unusual lesions or rashes. No skin breakdown appreciated. Neuro: Awake, alert and oriented 3. Moves all extremities well without hemiparesis or paralysis. No essential tremor is appreciated. Result/EKG - Labs CBC & BMP: 06/29/16 04:51 07/01/16 03:39 Lab Results: I have reviewed the past 24 hour labs Labs: Laboratory Results - last 24 hr 06/30/16 07/01/16 07/01/16 21:46 03:39 09:44 Fibrinogen 316 384 Circ Anticoag PTT 49.8 H D 40.6 H Sodium 142 Potassium 3.2 L Chloride 103 Carbon Dioxide 27 Anion Gap 15.2 H BUN 5 L Creatinine 0.50 L GFR Calculation 141 BUN/Creatinine Ratio 10.00 Glucose 114 H Calculated Osmolality 280.1 Calcium 8.0 L - EKG EKG results: interpreted by me EKG shows: tachycardia
[2016-07-01 12:20] LABS: Basophils % 0.2 % (0.0-0.8); Eosinophils % 0.2 % (0.00-10.9); Hemoglobin 10.2 GM/DL (12.0-16.0); Immature Granulocytes % 1.2 %; Immature Granulocytes Absolute 0.06 #; Lymphocytes # 0.8 10*3/uL (1.4-4.0); Lymphocytes % 15.5 % (21.3-54.2); Mean Corpuscular HGB Conc 30.9 GM/DL (32-36); Mean Corpuscular Hemoglobin 29 PG (27-34); Mean Platelet Volume 11.4 FL (9.6-12.0); Monocytes # 0.5 10*3/uL (0.11-0.8); Monocytes % 9.5 % (1.7-12.7); Neutrophils # 3.8 10*3/uL (1.4-7.4); Neutrophils % 73.4 % (38.7-73.9); Platelet Count 206 T/CUMM (130-400); Red Blood Count 3.55 MC/CUMM (3.8-5.5); Red Cell Distribution Width 19.7 % (9.3-17.3); White Blood Count 5.2 T/CUMM (4-12)
[2016-07-01 12:58] LABS: Free T4 (Free Thyroxine) 1.29 NG/DL (0.76-1.46); Thyroid Stimulating Hormone 4.92 uIU/ml (0.358-3.74)
[2016-07-01] MEDS ORDERED: METOPROLOL TARTRATE 50 MG TABLET PO SCH (21:00)
[2016-07-01] MEDS: METOPROLOL TARTRATE 100 MG TABLET PO SCH (21:19)
[2016-07-01 22:59] LABS: Partial Thromboplastin Time 55.2 SECS (0-40)
[2016-07-02 06:41] LABS: Osmolality,Calculated 277.5 MOS/KG (273-304); Potassium 3.9 MMOL/L (3.5-5.1)
[2016-07-02 06:41] LABS: Basophils % 0.2 % (0.0-0.8); Eosinophils % 0.2 % (0.00-10.9); Hematocrit 35.2 VOL% (35.7-47.0); Immature Granulocytes % 0.5 %; Immature Granulocytes Absolute 0.03 #; Lymphocytes % 17.2 % (21.3-54.2); Mean Corpuscular HGB Conc 31.3 GM/DL (32-36); Mean Corpuscular Hemoglobin 29 PG (27-34); Mean Corpuscular Volume 93.1 FL (87-102); Monocytes # 0.7 10*3/uL (0.11-0.8); Monocytes % 12.6 % (1.7-12.7); Neutrophils # 4.1 10*3/uL (1.4-7.4); Neutrophils % 69.3 % (38.7-73.9); Platelet Count 198 T/CUMM (130-400); Red Blood Count 3.78 MC/CUMM (3.8-5.5); Red Cell Distribution Width 19.6 % (9.3-17.3); White Blood Count 5.9 T/CUMM (4-12)
--- NOTE | 2016-07-02 08:01 | Cardiology Progress Note ---
Cardiology - PN: Subj Interval history: Cardiology note Day 4 status post EKOS with localized TPA infusion for recurrent large bilateral pulmonary emboli Status post IVC filter EKG shows sinus tachycardia around 110 Blood pressure 114/74 O2 sat 93% Decreased breath sounds few rhonchi in the bases Tachycardic with gallop Abdomen soft benign Right groin looks good. No hematoma No leg edema Lab data White count 5.9 hemoglobin 11.0 hematocrit 35.2 Sodium 139 potassium 3.9 chloride 104 CO2 23 BUN 8 creatinine 0.60 Glucose 158 Impression Status post third documented pulmonary embolus with EKOS. 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 which limits her mobility Sinus tachycardia Plan continue Xarelto 15 mg twice daily Continue losartan 25 mg daily Continue Lasix 40 mg daily Continue metoprolol 100 mg twice daily Exam (Progress Note) - Constitutional Vitals: Period Temp Pulse Resp BP Sys/Contreras Pulse Ox Last 24 Hr 97.0 F-99.3 F 115-123 18-20 90-117/63-72 83-93 Result/EKG - Labs CBC & BMP: 07/02/16 06:24 07/02/16 05:47 Labs: Laboratory Results - last 24 hr 07/01/16 07/01/16 07/01/16 09:44 11:43 11:43 WBC 5.2 RBC 3.55 L Hgb 10.2 L Hct 33.0 L MCV 93.0 MCH 29 MCHC 30.9 L RDW 19.7 H Plt Count 206 D MPV 11.4 Neut % (Auto) 73.4 Lymph % (Auto) 15.5 L [place] % (Auto) 9.5 Eos % (Auto) 0.2 Baso % (Auto) 0.2 Neut # (Auto) 3.8 Lymph # (Auto) 0.8 L [place] # (Auto) 0.5 Eos # (Auto) 0.0 Baso # (Auto) 0.0 Immature Gran % 1.2 Nucleated RBC % 0.0 Immature Gran # 0.06 Nucleated RBCs # 0.00 Fibrinogen 384 Circ Anticoag PTT 40.6 H Sodium Potassium Chloride Carbon Dioxide Anion Gap BUN Creatinine GFR Calculation BUN/Creatinine Ratio Glucose Calculated Osmolality Calcium Magnesium Free T4 1.29 TSH 3rd Generation 4.920 H 07/01/16 07/02/16 07/02/16 21:29 05:47 06:24 WBC 5.9 RBC 3.78 L Hgb 11.0 L Hct 35.2 L MCV 93.1 MCH 29 MCHC 31.3 L RDW 19.6 H Plt Count 198 MPV 11.0 Neut % (Auto) 69.3 Lymph % (Auto) 17.2 L [place] % (Auto) 12.6 Eos % (Auto) 0.2 Baso % (Auto) 0.2 Neut # (Auto) 4.1 Lymph # (Auto) 1.0 L [place] # (Auto) 0.7 Eos # (Auto) 0.0 Baso # (Auto) 0.0 Immature Gran % 0.5 Nucleated RBC % 0.0 Immature Gran # 0.03 Nucleated RBCs # 0.00 Fibrinogen 374 Circ Anticoag PTT 55.2 H D Sodium 139 Potassium 3.9 Chloride 104 Carbon Dioxide 23 Anion Gap 15.9 H BUN 8 Creatinine 0.60 GFR Calculation 133 BUN/Creatinine Ratio 13.00 Glucose 158 H Calculated Osmolality 277.5 Calcium 8.0 L Magnesium 2.0 Free T4 TSH 3rd Generation Specialty Discharge - Follow Up or Referrals
[2016-07-02] MEDS: ASCORBIC ACID 500 MG TABLET PO SCH (08:32)
[2016-07-02] MEDS: MAGNESIUM OXIDE 400 MG TABLET PO SCH ×2 (08:32→20:38)
[2016-07-02] MEDS: RIVAROXABAN 15 MG TABLET PO SCH ×2 (08:32→16:26)
[2016-07-02] MEDS: FUROSEMIDE 40 MG TABLET PO SCH (08:32)
[2016-07-02] MEDS: LETROZOLE 2.5 MG TABLET PO SCH (08:33)
[2016-07-02] MEDS: GLIMEPIRIDE 4 MG TABLET PO SCH (08:33)
[2016-07-02] MEDS: metFORMIN 500 MG TABLET PO SCH ×2 (08:33→20:38)
[2016-07-02] MEDS: LOSARTAN 25 MG TABLET PO SCH (08:33)
[2016-07-02] MEDS: METOPROLOL TARTRATE 100 MG TABLET PO SCH ×2 (08:37→20:38)
--- NOTE | 2016-07-02 08:37 | Pulmonology Progress Note ---
Pulmonary - PN: Subj Interval history: This 70-year-old lady came in with a massive pulmonary embolus. She had TPA infusion per EKOS device. Being started back on Xarelto after completing that. She has an IVC filter now. She remains tachycardic. She is somewhat hypoxemic requiring facemask oxygen to get her O2 sat in the mid 90s. We will try her on some nasal oxygen today. Her echocardiogram has shown a severe cardiomyopathy with ejection fraction 20%. This is a new finding. Cardiology is addressing. Patient feels better and is eating. Okay with me to move to the floor. Unable to get into the assessment and plan section of the electronic medical record today. Impression #1 massive pulmonary embolism continue with Xarelto, agree with IVC filter, okay to get up and ambulate some today. #2 cardiomyopathy defer to cardiology. 07/01/16 this 70-year-old lady had a massive pulmonary embolus and subsequent TPA infusion. She is now on Xarelto. Feeling better. Still a little bit tachycardic. On 2 L oxygen has O2 sat 98%. Probably we can get her back to room air but we will check. She can have her Colon removed. She also has a systolic cardiomyopathy with ejection fraction 20%. Defer to cardiology for that. Discussed the case with Dr. Ramirez today. We feel that she needs to follow-up with both of us post discharge. She will need lifelong anticoagulants. 07/02/2016 this 70-year-old lady has been moved to telemetry. She had a massive pulmonary embolus with a TPA infusion. She is on Xarelto. She was on Xarelto previously but had stopped taking it. This represents her third pulmonary embolus and this one was nearly fatal. She also has severe cardiomyopathy with ejection fraction 20%. She is primarily lying in the bed. She says that at home prior to this she was able to get around with a walker. We need to start getting her up and get physical therapy working on her. She does have help at home. She has been advised again that she will need lifelong anticoagulants barring any complications. Exam (Progress Note) - Constitutional Vitals: Period Temp Pulse Resp BP Sys/Contreras Pulse Ox Last 24 Hr 97.0 F-99.3 F 115-123 16-20 90-121/63-72 83-93 Exam: Patient's alert oriented vital signs show pulse in the 110s. O2 sat 98% on 2L.. Blood pressure 110/80. Pupils react to light. Throat is clear. Neck supple no bruits. Chest is clear I do not hear any wheezes or rales. Heart rapid rate, normal rhythm no murmurs. Abdomen soft nontender no masses. Extremities no clubbing cyanosis trace of edema. Calves nontender. Results - Labs CBC & BMP: 07/02/16 06:24 07/02/16 05:47 Lab Results: I have reviewed the past 24 hour labs Assessment and Plan (1) Saddle embolism of pulmonary artery Status: Acute Assessment and plan: She has had TPA per EKOS, and is now on Xarelto. She will need 15 mg twice daily for 3 weeks and then 20 mg daily probably lifelong. Also has IVC filter due to this being recurrent disease and at least submassive. 07/02/2016 status post TPA infusion. Lifelong anticoagulants. Patient was advised if she has to be off anticoagulants for surgery for brief periods that that would be okay since she has the IVC filter now. However we need to keep her on anticoagulants if at all possible for at least 30 days before any breaks in the action. Current Visit: Yes (2) Heart failure, systolic, due to idiopathic cardiomyopathy Status: Acute Assessment and plan: Echo showed an ejection fraction of 20%. Defer to Dr. Ramirez. 07/02/2016 Dr. Ramirez is adjusting her medications because of tachycardia associated with her idiopathic cardiomyopathy. Current Visit: Yes (3) Post IVC filter Status: Chronic Assessment and plan: No leg edema. Plans will be to keep filter in long-term. 07/02/2016 no problems with leg edema, no side effects from the IVC filter placement. Current Visit: Yes (4) Diabetes mellitus type 2 in nonobese Status: Chronic Assessment and plan: Glucoses okay. 07/02/2016 blood sugars are acceptable. Current Visit: No Specialty Discharge - Follow Up or Referrals
[2016-07-02] MEDS: DESITIN 4OZ/NYSTATIN 15 GRAM MIXTURE PASTE TOP SCH ×2 (16:28→21:07)
[2016-07-03 06:49] LABS: Basophils % 0.2 % (0.0-0.8); Eosinophils % 0.4 % (0.00-10.9); Hematocrit 31.9 VOL% (35.7-47.0); Immature Granulocytes % 0.5 %; Immature Granulocytes Absolute 0.03 #; Lymphocytes # 0.9 10*3/uL (1.4-4.0); Lymphocytes % 15.7 % (21.3-54.2); Mean Corpuscular HGB Conc 31.3 GM/DL (32-36); Mean Corpuscular Hemoglobin 29 PG (27-34); Mean Corpuscular Volume 91.7 FL (87-102); Mean Platelet Volume 10.4 FL (9.6-12.0); Monocytes # 0.5 10*3/uL (0.11-0.8); Monocytes % 9.3 % (1.7-12.7); Neutrophils # 4.2 10*3/uL (1.4-7.4); Neutrophils % 73.9 % (38.7-73.9); Platelet Count 219 T/CUMM (130-400); Red Blood Count 3.48 MC/CUMM (3.8-5.5); Red Cell Distribution Width 19.3 % (9.3-17.3); White Blood Count 5.6 T/CUMM (4-12)
[2016-07-03 07:27] LABS: Calcium 8.2 MG/DL (8.5-10.1); Magnesium 1.7 MG/DL (1.8-2.4); Osmolality,Calculated 273.7 MOS/KG (273-304); Potassium 3.5 MMOL/L (3.5-5.1)
[2016-07-03] MEDS: LOSARTAN 25 MG TABLET PO SCH (09:23)
[2016-07-03] MEDS: FUROSEMIDE 40 MG TABLET PO SCH (09:23)
[2016-07-03] MEDS: LETROZOLE 2.5 MG TABLET PO SCH (09:23)
[2016-07-03] MEDS: METOPROLOL TARTRATE 100 MG TABLET PO SCH ×2 (09:23→20:50)
[2016-07-03] MEDS: MAGNESIUM OXIDE 400 MG TABLET PO SCH ×2 (09:23→20:51)
[2016-07-03] MEDS: ASCORBIC ACID 500 MG TABLET PO SCH (09:23)
[2016-07-03] MEDS: GLIMEPIRIDE 4 MG TABLET PO SCH (09:24)
[2016-07-03] MEDS: RIVAROXABAN 15 MG TABLET PO SCH ×2 (09:24→16:39)
[2016-07-03] MEDS: DESITIN 4OZ/NYSTATIN 15 GRAM MIXTURE PASTE TOP SCH ×2 (09:24→22:04)
[2016-07-03] MEDS: metFORMIN 500 MG TABLET PO SCH ×2 (09:24→20:50)
--- NOTE | 2016-07-03 10:11 | Pulmonology Progress Note ---
Pulmonary - PN: Subj Interval history: This 70-year-old lady came in with a massive pulmonary embolus. She had TPA infusion per EKOS device. Being started back on Xarelto after completing that. She has an IVC filter now. She remains tachycardic. She is somewhat hypoxemic requiring facemask oxygen to get her O2 sat in the mid 90s. We will try her on some nasal oxygen today. Her echocardiogram has shown a severe cardiomyopathy with ejection fraction 20%. This is a new finding. Cardiology is addressing. Patient feels better and is eating. Okay with me to move to the floor. Unable to get into the assessment and plan section of the electronic medical record today. Impression #1 massive pulmonary embolism continue with Xarelto, agree with IVC filter, okay to get up and ambulate some today. #2 cardiomyopathy defer to cardiology. 07/01/16 this 70-year-old lady had a massive pulmonary embolus and subsequent TPA infusion. She is now on Xarelto. Feeling better. Still a little bit tachycardic. On 2 L oxygen has O2 sat 98%. Probably we can get her back to room air but we will check. She can have her Colon removed. She also has a systolic cardiomyopathy with ejection fraction 20%. Defer to cardiology for that. Discussed the case with Dr. Ramirez today. We feel that she needs to follow-up with both of us post discharge. She will need lifelong anticoagulants. 07/02/2016 this 70-year-old lady has been moved to telemetry. She had a massive pulmonary embolus with a TPA infusion. She is on Xarelto. She was on Xarelto previously but had stopped taking it. This represents her third pulmonary embolus and this one was nearly fatal. She also has severe cardiomyopathy with ejection fraction 20%. She is primarily lying in the bed. She says that at home prior to this she was able to get around with a walker. We need to start getting her up and get physical therapy working on her. She does have help at home. She has been advised again that she will need lifelong anticoagulants barring any complications. 07/03/2016 she is feeling better. She was getting around with a walker at home and spent most of the time in the wheelchair. She needs more physical therapy. Exam (Progress Note) - Constitutional Vitals: Period Temp Pulse Resp BP Sys/Contreras Pulse Ox Last 24 Hr 96.0 F-98.7 F 115-123 16-20 104-124/62-75 90-96 Exam: Patient's alert oriented vital signs show pulse in the 110s. O2 sat 98% on 2L.. Blood pressure 110/80. Pupils react to light. Throat is clear. Neck supple no bruits. Chest is clear I do not hear any wheezes or rales. Heart rapid rate, normal rhythm no murmurs. Abdomen soft nontender no masses. Extremities no clubbing cyanosis trace of edema. Calves nontender. Little change from yesterday. Results - Labs CBC & BMP: 07/03/16 06:28 07/03/16 06:28 Lab Results: I have reviewed the past 24 hour labs Assessment and Plan (1) Saddle embolism of pulmonary artery Status: Acute Assessment and plan: She has had TPA per EKOS, and is now on Xarelto. She will need 15 mg twice daily for 3 weeks and then 20 mg daily probably lifelong. Also has IVC filter due to this being recurrent disease and at least submassive. 07/02/2016 status post TPA infusion. Lifelong anticoagulants. Patient was advised if she has to be off anticoagulants for surgery for brief periods that that would be okay since she has the IVC filter now. However we need to keep her on anticoagulants if at all possible for at least 30 days before any breaks in the action. 07/03/2016 symptoms are improved. Again plans are for lifelong anticoagulants. She has an IVC filter. Current Visit: Yes (2) Heart failure, systolic, due to idiopathic cardiomyopathy Status: Acute Assessment and plan: Echo showed an ejection fraction of 20%. Defer to Dr. Ramirez. 07/02/2016 Dr. Ramirez is adjusting her medications because of tachycardia associated with her idiopathic cardiomyopathy. 07/03/[address] Ramirez addressing her congestive heart failure symptoms Current Visit: Yes (3) Post IVC filter Status: Chronic Assessment and plan: No leg edema. Plans will be to keep filter in long-term. 07/02/2016 no problems with leg edema, no side effects from the IVC filter placement. Current Visit: Yes (4) Diabetes mellitus type 2 in nonobese Status: Chronic Assessment and plan: Glucoses okay. 07/02/2016 blood sugars are acceptable. 07/03/2016 no problems with blood sugars. Current Visit: No Specialty Discharge - Follow Up or Referrals
[2016-07-03] MEDS ORDERED: DIGOXIN 0.5 MG/2 ML AMP IV ONE (10:21)
--- NOTE | 2016-07-03 10:21 | Cardiology Progress Note ---
Cardiology - PN: Subj Interval history: Cardiology note Day 5 status post EKOS with localized TPA infusion for recurrent large bilateral pulmonary emboli. Status post IVC filter. Telemetry shows persistent sinus tachycardia Blood pressure 110/70 No temperature O2 sat 94% Tachycardic with gallop Decreased breath sounds but clear Abdomen benign Right groin looks good No leg edema Echo Doppler by Dr. Escalona showed ejection fraction of 20% with PA pressure 45 Lab data today White count 5.6 hemoglobin 10.0 hematocrit 31.9 Sodium 138 potassium 3.5 chloride 100 CO2 29 BUN 8 creatinine 0.50 Impression Status post third pulmonary embolus with EKOS procedure Status post IVC filter History of noncompliance with Xarelto Status post right pulmonary embolus in March 2016 Status post pulmonary embolus November 2008 Chronic hypertension Lifetime non-smoker Cardiomyopathy, echo shows ejection fraction 20% with PA pressure 45 Persistent sinus tachycardia Plan Chest x-ray Losartan 25 mg daily Xarelto 15 mg twice daily Metoprolol 100 mg twice daily Lasix 40 mg daily Add digoxin 0.25 mg daily Etiology for sinus tachycardia is unclear. If her x-ray does not show failure, and I do not think it will, will try cautious fluid administration Exam (Progress Note) - Constitutional Vitals: Period Temp Pulse Resp BP Sys/Contreras Pulse Ox Last 24 Hr 96.0 F-98.7 F 115-123 16-20 104-124/62-75 90-96 Result/EKG - Labs CBC & BMP: 07/03/16 06:28 07/03/16 06:28 Labs: Laboratory Results - last 24 hr 07/03/16 07/03/16 06:28 06:28 WBC 5.6 RBC 3.48 L Hgb 10.0 L Hct 31.9 L MCV 91.7 MCH 29 MCHC 31.3 L RDW 19.3 H Plt Count 219 MPV 10.4 Neut % (Auto) 73.9 Lymph % (Auto) 15.7 L [place] % (Auto) 9.3 Eos % (Auto) 0.4 Baso % (Auto) 0.2 Neut # (Auto) 4.2 Lymph # (Auto) 0.9 L [place] # (Auto) 0.5 Eos # (Auto) 0.0 Baso # (Auto) 0.0 Immature Gran % 0.5 Nucleated RBC % 0.0 Immature Gran # 0.03 Nucleated RBCs # 0.00 Sodium 138 Potassium 3.5 Chloride 100 Carbon Dioxide 29 Anion Gap 12.5 BUN 8 Creatinine 0.50 L GFR Calculation 141 BUN/Creatinine Ratio 16.00 Glucose 110 H Calculated Osmolality 273.7 Calcium 8.2 L Magnesium 1.7 L Specialty Discharge - Follow Up or Referrals
--- NOTE | 2016-07-03 11:34 | XRay Report ---
XR chest 1V portable Indication: CHF Comparison: Chest x-ray 06/28/2016 Technique: Portable AP chest was performed. Findings: Minimal interval increase in airspace opacification of the left lung base is demonstrated. Cardiomegaly appears stable. The chest otherwise demonstrates no change. Impression: 1. Interval increase in parenchymal opacity left lung base suggesting airspace disease and may reflect atelectasis, infection, or atypical edema. 07/03/2016 11:30 AM PROCEDURE INTERPRETED AT [facility] DEPARTMENT OF RADIOLOGY Final Report Signed by: Dr. James Felder
[2016-07-03] MEDS: DIGOXIN 0.25 MG TABLET PO SCH (14:13)
[2016-07-04 05:29] LABS: Basophils % 0.3 % (0.0-0.8); Hematocrit 33.6 VOL% (35.7-47.0); Hemoglobin 10.6 GM/DL (12.0-16.0); Immature Granulocytes % 0.3 %; Immature Granulocytes Absolute 0.01 #; Lymphocytes % 25.3 % (21.3-54.2); Mean Corpuscular HGB Conc 31.5 GM/DL (32-36); Mean Corpuscular Hemoglobin 30 PG (27-34); Mean Corpuscular Volume 94.1 FL (87-102); Monocytes # 0.6 10*3/uL (0.11-0.8); Monocytes % 15.8 % (1.7-12.7); Neutrophils # 2.2 10*3/uL (1.4-7.4); Neutrophils % 57.3 % (38.7-73.9); Platelet Count 233 T/CUMM (130-400); Red Blood Count 3.57 MC/CUMM (3.8-5.5); Red Cell Distribution Width 18.8 % (9.3-17.3); White Blood Count 3.9 T/CUMM (4-12)
[2016-07-04 06:04] LABS: Calcium 7.9 MG/DL (8.5-10.1); Magnesium 1.9 MG/DL (1.8-2.4); Osmolality,Calculated 272.5 MOS/KG (273-304); Potassium 3.8 MMOL/L (3.5-5.1)
[2016-07-04 06:15] LABS: Eosinophils 3 % (0-10); Hypochromasia Slight; Lymphocytes 24 % (20-55); Macrocytosis 1+; Platelet Estimate Adequate; Polychromasia Slight; Segmented Neutrophils 64 % (50-85); Total Cells Counted 100
[2016-07-04] MEDS: DESITIN 4OZ/NYSTATIN 15 GRAM MIXTURE PASTE TOP SCH ×2 (07:40→21:00)
--- NOTE | 2016-07-04 09:48 | Pulmonology Progress Note ---
Pulmonary - PN: Subj Interval history: This 70-year-old lady came in with a massive pulmonary embolus. She had TPA infusion per EKOS device. Being started back on Xarelto after completing that. She has an IVC filter now. She remains tachycardic. She is somewhat hypoxemic requiring facemask oxygen to get her O2 sat in the mid 90s. We will try her on some nasal oxygen today. Her echocardiogram has shown a severe cardiomyopathy with ejection fraction 20%. This is a new finding. Cardiology is addressing. Patient feels better and is eating. Okay with me to move to the floor. Unable to get into the assessment and plan section of the electronic medical record today. Impression #1 massive pulmonary embolism continue with Xarelto, agree with IVC filter, okay to get up and ambulate some today. #2 cardiomyopathy defer to cardiology. 07/01/16 this 70-year-old lady had a massive pulmonary embolus and subsequent TPA infusion. She is now on Xarelto. Feeling better. Still a little bit tachycardic. On 2 L oxygen has O2 sat 98%. Probably we can get her back to room air but we will check. She can have her Colon removed. She also has a systolic cardiomyopathy with ejection fraction 20%. Defer to cardiology for that. Discussed the case with Dr. Ramirez today. We feel that she needs to follow-up with both of us post discharge. She will need lifelong anticoagulants. 07/02/2016 this 70-year-old lady has been moved to telemetry. She had a massive pulmonary embolus with a TPA infusion. She is on Xarelto. She was on Xarelto previously but had stopped taking it. This represents her third pulmonary embolus and this one was nearly fatal. She also has severe cardiomyopathy with ejection fraction 20%. She is primarily lying in the bed. She says that at home prior to this she was able to get around with a walker. We need to start getting her up and get physical therapy working on her. She does have help at home. She has been advised again that she will need lifelong anticoagulants barring any complications. 07/03/2016 she is feeling better. She was getting around with a walker at home and spent most of the time in the wheelchair. She needs more physical therapy. 07/04/2016 patient tolerating room air. Needs more physical therapy. Dr. Ramirez as discussed the patient going to a swing bed. This sounds reasonable. I will need to see her back in follow-up after she is discharged from the swing bed. That would be in about 4-6 weeks. I will sign off here. Please call if needed further. Exam (Progress Note) - Constitutional Vitals: Period Temp Pulse Resp BP Sys/Contreras Pulse Ox Last 24 Hr 96.6 F-98.4 F 83-124 16-21 100-116/55-68 90-97 Exam: Patient's alert oriented vital signs show pulse in the 110s. O2 sat 94% on room air. Blood pressure 110/80. Pupils react to light. Throat is clear. Neck supple no bruits. Chest is clear I do not hear any wheezes or rales. Heart rapid rate, normal rhythm no murmurs. Abdomen soft nontender no masses. Extremities no clubbing cyanosis trace of edema. Calves nontender. Results - Labs CBC & BMP: 07/04/16 04:16 07/04/16 04:16 Lab Results: I have reviewed the past 24 hour labs Assessment and Plan (1) Saddle embolism of pulmonary artery Status: Acute Assessment and plan: She has had TPA per EKOS, and is now on Xarelto. She will need 15 mg twice daily for 3 weeks and then 20 mg daily probably lifelong. Also has IVC filter due to this being recurrent disease and at least submassive. 07/02/2016 status post TPA infusion. Lifelong anticoagulants. Patient was advised if she has to be off anticoagulants for surgery for brief periods that that would be okay since she has the IVC filter now. However we need to keep her on anticoagulants if at all possible for at least 30 days before any breaks in the action. 07/03/2016 symptoms are improved. Again plans are for lifelong anticoagulants. She has an IVC filter. 07/04/2016 again symptoms are improved. She has been treated with TPA followed by Xarelto. She has an IVC filter. Ready for discharge to swing bed for further physical therapy. Current Visit: Yes (2) Heart failure, systolic, due to idiopathic cardiomyopathy Status: Acute Assessment and plan: Echo showed an ejection fraction of 20%. Defer to Dr. Ramirez. 07/02/2016 Dr. Ramirez is adjusting her medications because of tachycardia associated with her idiopathic cardiomyopathy. 07/03/[address] Ramirez addressing her congestive heart failure symptoms 07/04/2016 cardiology addressing congestive heart failure symptoms. Pulse is now controlled in the 80s. Current Visit: Yes (3) Post IVC filter Status: Chronic Assessment and plan: No leg edema. Plans will be to keep filter in long-term. 07/02/2016 no problems with leg edema, no side effects from the IVC filter placement. Current Visit: Yes (4) Diabetes mellitus type 2 in nonobese Status: Chronic Assessment and plan: Glucoses okay. 07/02/2016 blood sugars are acceptable. 07/03/2016 no problems with blood sugars. 07/04/2016 blood sugars have been low. She is on both metformin and glimepiride. Will hold the glimepiride. Metformin does not cause hypoglycemia. Renal function is normal. Current Visit: No Specialty Discharge - Follow Up or Referrals
[2016-07-04] MEDS: GLIMEPIRIDE 4 MG TABLET PO SCH (09:56)
[2016-07-04] MEDS: ASCORBIC ACID 500 MG TABLET PO SCH (09:57)
[2016-07-04] MEDS: RIVAROXABAN 15 MG TABLET PO SCH ×2 (09:57→17:24)
[2016-07-04] MEDS: LETROZOLE 2.5 MG TABLET PO SCH (09:57)
[2016-07-04] MEDS: MAGNESIUM OXIDE 400 MG TABLET PO SCH ×2 (09:58→20:59)
[2016-07-04] MEDS: LOSARTAN 25 MG TABLET PO SCH (09:58)
[2016-07-04] MEDS: metFORMIN 500 MG TABLET PO SCH ×2 (09:58→20:59)
[2016-07-04] MEDS: FUROSEMIDE 40 MG TABLET PO SCH (09:58)
[2016-07-04] MEDS: METOPROLOL TARTRATE 100 MG TABLET PO SCH ×2 (09:58→20:59)
--- NOTE | 2016-07-04 13:09 | Cardiology Progress Note ---
Assessment and Plan - Time spent with patient Time spent with patient: Greater than 30 minutes (1) Noncompliance Status: Chronic Assessment and plan: SEE PLAN OF CARE LISTED BELOW Current Visit: Yes (2) Hypertension Status: Chronic Assessment and plan: SEE PLAN OF CARE LISTED BELOW Current Visit: Yes (3) Diabetes Status: Chronic Assessment and plan: SEE PLAN OF CARE LISTED BELOW Current Visit: Yes (4) Diabetes mellitus type 2 in nonobese Status: Chronic Assessment and plan: SEE PLAN OF CARE LISTED BELOW Current Visit: No (5) Saddle embolism of pulmonary artery Status: Acute Assessment and plan: SEE PLAN OF CARE LISTED BELOW Current Visit: Yes (6) Post IVC filter Status: Chronic Assessment and plan: SEE PLAN OF CARE LISTED BELOW Current Visit: Yes Cardiology - PN: Subj Interval history: EDGE ROLLER: Dr. Messer SUMMARY: Ms. Ricketts, 70BF, has multiple medical problems including diabetes, PSVT, paroxysmal atrial fibrillation. Patient presented to the emergency department June 28, 2016 with recurrent, large bilateral pulmonary emboli. She had been noncompliant with Xarelto. She emergently underwent [facility] [place] with localized TPA infusion, performed by Dr. Ramirez. She tolerated the procedure well and without complication. Because of her noncompliance with anticoagulation, she underwent IVC filter implantation the following day. Echocardiogram reveals a new cardiomyopathy. EF 20%, PAP 45 mmHg. JULY 04, 2016: Patient tells me she is feeling well. She denies chest pain, heaviness or tightness. She had sinus tachycardia over the weekend and required gentle hydration. This has resolved. She continues to improve. She is tolerating beta blockade, ARB and digoxin. She continues to take Xarelto 15 mg orally twice daily, this was initiated June 30, 2016. In the morning, I will recheck a TSH, fasting lipid profile. At some point, she will need heart catheterization to evaluate her newly discovered cardiomyopathy. I have consulted case management for evaluation of candidacy for swing bed placement. She may be a candidate for transfer to swing bed facility to complete her loading of Xarelto in the future consider cardiac catheterization once she has a past the acute phase of PE, and demonstrates medical compliance. Will discuss with Dr. Mnotanez and await further recommendations ASSESSMENT/PLAN: 1. RECURRENT PTE - now status post IVC filter implantation. Continue Xarelto 2. CARDIOMYOPATHY - etiology undetermined. EF 20%. In her future, will benefit from cardiac catheterization. 3. HYPERTENSION - adequately controlled 4. DEBILITATED - being evaluated for swing bed candidacy 5. NON-COMPLIANCE - reiterated the importance of medication compliance. 6. DIABETES -continue current plan of care 7. SINUS TACHYCARDIA - controlled with hydration and additiona of digoxin. Will decrease dose of digoxin to 0.125mg daily starting tomorrow. Exam (Progress Note) - Constitutional Vitals: Period Temp Pulse Resp BP Sys/Contreras Pulse Ox Last 24 Hr 97.2 F-98.4 F 83-124 18-21 100-117/55-63 90-97 Exam: General: [Appears well with no apparent distress.] [Pleasant and cooperative. ] [Appears comfortable.] HEENT: [Bilateral arcus noted. Normocephalic, atraumatic. Mucous membranes moist. No jaundice noted. Conjunctiva moist and clear, sclerae anicteric] Neck: No JVD/HJR, no thyromegaly or lymphadenopathy noted. No carotid bruit appreciated Cardiac: [Regular rhythm, regular rate. [No murmur rub or gallop.] Lungs: [Rhonchi noted posteriorly. No wheezing noted. Using oxygen intermittently Abdomen: Soft, bowel sounds normoactive. Nontender and nondistended. No abdominal bruit or thrill noted. No masses noted. Musculoskeletal: No fluid collection. Decreased range of motion is noted. Extremities: Right groin soft, free of hematoma or bruit. Mild ecchymosis noted. ] Upper extremity pulses 2+. Lower extremity pulses 2+. Capillary refill less than 3 seconds. Skin: No unusual lesions or rashes. No skin breakdown appreciated. Neuro: Awake, alert and oriented 3. Moves all extremities well without hemiparesis or paralysis. No essential tremor is appreciated. Result/EKG - Labs CBC & BMP: 07/04/16 04:16 07/04/16 04:16 Lab Results: I have reviewed the past 24 hour labs Labs: Laboratory Results - last 24 hr 07/04/16 07/04/16 07/04/16 04:16 04:16 04:16 WBC 3.9 L D RBC 3.57 L Hgb 10.6 L Hct 33.6 L MCV 94.1 MCH 30 MCHC 31.5 L RDW 18.8 H Plt Count 233 MPV 11.0 Neut % (Auto) 57.3 Lymph % (Auto) 25.3 [place] % (Auto) 15.8 H Eos % (Auto) 1.0 Baso % (Auto) 0.3 Neut # (Auto) 2.2 Lymph # (Auto) 1.0 L [place] # (Auto) 0.6 Eos # (Auto) 0.0 Baso # (Auto) 0.0 Total Counted 100 Immature Gran % 0.3 Nucleated RBC % 0.0 Immature Gran # 0.01 Segmented Neutrophils 64 Lymphocytes 24 Monocytes 9 Eosinophils 3 Nucleated RBCs # 0.00 Platelet Estimate Adequate Polychromasia Slight Hypochromasia Slight Macrocytosis 1+ Sodium 139 Potassium 3.8 Chloride 101 Carbon Dioxide 28 Anion Gap 13.8 BUN 10 Creatinine 0.50 L GFR Calculation 141 BUN/Creatinine Ratio 20.00 Glucose 53 L POC Glucose Calculated Osmolality 272.5 L Calcium 7.9 L Magnesium 1.9 B-Natriuretic Peptide 155 H 07/04/16 07/04/16 07/04/16 07:16 08:23 09:55 WBC RBC Hgb Hct MCV MCH MCHC RDW Plt Count MPV Neut % (Auto) Lymph % (Auto) [place] % (Auto) Eos % (Auto) Baso % (Auto) Neut # (Auto) Lymph # (Auto) [place] # (Auto) Eos # (Auto) Baso # (Auto) Total Counted Immature Gran % Nucleated RBC % Immature Gran # Segmented Neutrophils Lymphocytes Monocytes Eosinophils Nucleated RBCs # Platelet Estimate Polychromasia Hypochromasia Macrocytosis Sodium Potassium Chloride Carbon Dioxide Anion Gap BUN Creatinine GFR Calculation BUN/Creatinine Ratio Glucose POC Glucose 46 L* 64 L 86 Calculated Osmolality Calcium Magnesium B-Natriuretic Peptide 07/04/16 11:25 WBC RBC Hgb Hct MCV MCH MCHC RDW Plt Count MPV Neut % (Auto) Lymph % (Auto) [place] % (Auto) Eos % (Auto) Baso % (Auto) Neut # (Auto) Lymph # (Auto) [place] # (Auto) Eos # (Auto) Baso # (Auto) Total Counted Immature Gran % Nucleated RBC % Immature Gran # Segmented Neutrophils Lymphocytes Monocytes Eosinophils Nucleated RBCs # Platelet Estimate Polychromasia Hypochromasia Macrocytosis Sodium Potassium Chloride Carbon Dioxide Anion Gap BUN Creatinine GFR Calculation BUN/Creatinine Ratio Glucose POC Glucose 86 Calculated Osmolality Calcium Magnesium B-Natriuretic Peptide - EKG EKG results: interpreted by me EKG shows: sinus rhythm Specialty Discharge - Follow Up or Referrals
[2016-07-04] MEDS: DIGOXIN 0.25 MG TABLET PO SCH (13:12)
[2016-07-04] MEDS: DILTIAZEM CD 120 MG CAPSULE PO SCH (20:59)
[2016-07-05 08:11] LABS: Basophils % 0.6 % (0.0-0.8); Eosinophils # 0.1 10*3/uL (0.0-0.87); Eosinophils % 1.4 % (0.00-10.9); Hematocrit 35.6 VOL% (35.7-47.0); Immature Granulocytes % 0.6 %; Immature Granulocytes Absolute 0.02 #; Lymphocytes % 27.7 % (21.3-54.2); Mean Corpuscular HGB Conc 30.9 GM/DL (32-36); Mean Corpuscular Hemoglobin 29 PG (27-34); Mean Corpuscular Volume 92.7 FL (87-102); Mean Platelet Volume 10.8 FL (9.6-12.0); Monocytes # 0.5 10*3/uL (0.11-0.8); Monocytes % 13.2 % (1.7-12.7); Neutrophils % 56.5 % (38.7-73.9); Platelet Count 300 T/CUMM (130-400); Red Blood Count 3.84 MC/CUMM (3.8-5.5); Red Cell Distribution Width 18.4 % (9.3-17.3); White Blood Count 3.6 T/CUMM (4-12)
[2016-07-05 09:19] LABS: Calcium 8.2 MG/DL (8.5-10.1); Free T4 (Free Thyroxine) 1.32 NG/DL (0.76-1.46); Magnesium 1.9 MG/DL (1.8-2.4); Risk Ratio 3.26; Thyroid Stimulating Hormone 5.03 uIU/ml (0.358-3.74); VLDL CHOLESTEROL 20.6 MG/DL
[2016-07-05] MEDS: ASCORBIC ACID 500 MG TABLET PO SCH (09:48)
[2016-07-05] MEDS: metFORMIN 500 MG TABLET PO SCH ×2 (09:48→21:17)
[2016-07-05] MEDS: MAGNESIUM OXIDE 400 MG TABLET PO SCH ×2 (09:48→21:17)
[2016-07-05] MEDS: RIVAROXABAN 15 MG TABLET PO SCH ×2 (09:48→17:26)
[2016-07-05] MEDS: METOPROLOL TARTRATE 100 MG TABLET PO SCH ×2 (09:48→21:17)
[2016-07-05] MEDS: FUROSEMIDE 40 MG TABLET PO SCH (09:49)
[2016-07-05] MEDS: LOSARTAN 25 MG TABLET PO SCH (09:49)
[2016-07-05] MEDS: LETROZOLE 2.5 MG TABLET PO SCH (09:49)
[2016-07-05] MEDS: DESITIN 4OZ/NYSTATIN 15 GRAM MIXTURE PASTE TOP SCH ×2 (09:49→21:17)
[2016-07-05] MEDS: DIGOXIN 0.125 MG TABLET PO SCH (13:18)
--- NOTE | 2016-07-05 13:20 | Cardiology Progress Note ---
Assessment and Plan - Time spent with patient Time spent with patient: Greater than 30 minutes (1) Noncompliance Status: Chronic Assessment and plan: SEE PLAN OF CARE LISTED BELOW Current Visit: Yes (2) Hypertension Status: Chronic Assessment and plan: SEE PLAN OF CARE LISTED BELOW Current Visit: Yes (3) Diabetes Status: Chronic Assessment and plan: SEE PLAN OF CARE LISTED BELOW Current Visit: Yes (4) Diabetes mellitus type 2 in nonobese Status: Chronic Assessment and plan: SEE PLAN OF CARE LISTED BELOW Current Visit: No (5) Saddle embolism of pulmonary artery Status: Acute Assessment and plan: SEE PLAN OF CARE LISTED BELOW Current Visit: Yes (6) Post IVC filter Status: Chronic Assessment and plan: SEE PLAN OF CARE LISTED BELOW Current Visit: Yes (7) Atrial flutter Status: Acute Assessment and plan: SEE PLAN OF CARE LISTED BELOW Current Visit: Yes Cardiology - PN: Subj Interval history: TECHNOLOGIES DIVISION CHAIR: Dr. Messer SUMMARY: Ms. Ricketts, 70BF, has multiple medical problems including diabetes, PSVT, paroxysmal atrial fibrillation. Patient presented to the emergency department June 28, 2016 with recurrent, large bilateral pulmonary emboli. She had been noncompliant with Xarelto. She emergently underwent [place] with localized TPA infusion, performed by Dr. Ramirez. She tolerated the procedure well and without complication. Because of her noncompliance with anticoagulation, she underwent IVC filter implantation the following day. Echocardiogram reveals a new cardiomyopathy. EF 20%, PAP 45 mmHg. JULY 04, 2016: Patient tells me she is feeling well. She denies chest pain, heaviness or tightness. She had sinus tachycardia over the weekend and required gentle hydration. This has resolved. She continues to improve. She is tolerating beta blockade, ARB and digoxin. She continues to take Xarelto 15 mg orally twice daily, this was initiated June 30, 2016. In the morning, I will recheck a TSH, fasting lipid profile. At some point, she will need heart catheterization to evaluate her newly discovered cardiomyopathy. I have consulted case management for evaluation of candidacy for swing bed placement. She may be a candidate for transfer to swing bed facility to complete her loading of Xarelto in the future consider cardiac catheterization once she has a past the acute phase of PE, and demonstrates medical compliance. Will discuss with Dr. Montanez and await further recommendations JULY 05, 2016: Overnight, her heart rate has improved with the addition of a calcium channel cole. Unfortunately, cannot escalate dose due to blood pressure. She remains in atrial flutter. Continue Xarelto 15 mg orally twice daily. At some point, hopefully, she will convert back to normal sinus rhythm. If she remains in atrial flutter with difficulty controlling the rate, antiarrhythmic or cardioversion, possibly ablation may be considered. Ideally, this will need to be pursued once her PTE resolves. Controlling her rapid ventricular response may also improve her cardiomyopathy. She will need ischemic evaluation if her cardiomyopathy does not improve after reevaluation. Hopefully, patient is a candidate for swing bed or LTAC soon. She is being evaluated we are awaiting their acceptance. ASSESSMENT/PLAN: 1. RECURRENT PTE - now status post IVC filter implantation. Continue Xarelto 2. CARDIOMYOPATHY - etiology undetermined. EF 20%. In her future, will benefit from cardiac catheterization. 3. HYPERTENSION - adequately controlled 4. DEBILITATED - being evaluated for swing bed candidacy 5. NON-COMPLIANCE - reiterated the importance of medication compliance. 6. DIABETES -continue current plan of care 7. ATRIAL FLUTTER - CCB added yesterday and rate better controlled. See above. Exam (Progress Note) - Constitutional Vitals: Period Temp Pulse Resp BP Sys/Contreras Pulse Ox Last 24 Hr 97.6 F-99.4 F 78-116 18-18 105-121/58-73 90-96 Exam: General: [Appears well with no apparent distress.] [Pleasant and cooperative. ] [Appears comfortable.] HEENT: [Bilateral arcus noted. Normocephalic, atraumatic. Mucous membranes moist. No jaundice noted. Conjunctiva moist and clear, sclerae anicteric] Neck: No JVD/HJR, no thyromegaly or lymphadenopathy noted. No carotid bruit appreciated Cardiac: [Regular rhythm, regular rate. [No murmur rub or gallop.] Lungs: [Rhonchi noted posteriorly. No wheezing noted. Using oxygen intermittently Abdomen: Soft, bowel sounds normoactive. Nontender and nondistended. No abdominal bruit or thrill noted. No masses noted. Musculoskeletal: No fluid collection. Decreased range of motion is noted. Extremities: Right groin soft, free of hematoma or bruit. Mild ecchymosis noted. ] Upper extremity pulses 2+. Lower extremity pulses 2+. Capillary refill less than 3 seconds. Skin: No unusual lesions or rashes. No skin breakdown appreciated. Neuro: Awake, alert and oriented 3. Moves all extremities well without hemiparesis or paralysis. No essential tremor is appreciated. Result/EKG - Labs CBC & BMP: 07/05/16 07:45 07/05/16 07:45 Lab Results: I have reviewed the past 24 hour labs Labs: Laboratory Results - last 24 hr 07/04/16 07/04/16 07/05/16 15:28 19:22 07:14 WBC RBC Hgb Hct MCV MCH MCHC RDW Plt Count MPV Neut % (Auto) Lymph % (Auto) [place] % (Auto) Eos % (Auto) Baso % (Auto) Neut # (Auto) Lymph # (Auto) [place] # (Auto) Eos # (Auto) Baso # (Auto) Immature Gran % Nucleated RBC % Immature Gran # Nucleated RBCs # Sodium Potassium Chloride Carbon Dioxide Anion Gap BUN Creatinine GFR Calculation BUN/Creatinine Ratio Glucose POC Glucose 72 L 111 H 120 H Calculated Osmolality Calcium Magnesium Triglycerides Cholesterol LDL Cholesterol VLDL Cholesterol HDL Cholesterol Heart Disease Risk Ratio Free T4 TSH 3rd Generation 07/05/16 07/05/16 07/05/16 07:45 07:45 11:32 WBC 3.6 L RBC 3.84 Hgb 11.0 L Hct 35.6 L MCV 92.7 MCH 29 MCHC 30.9 L RDW 18.4 H Plt Count 300 D MPV 10.8 Neut % (Auto) 56.5 Lymph % (Auto) 27.7 [place] % (Auto) 13.2 H Eos % (Auto) 1.4 Baso % (Auto) 0.6 Neut # (Auto) 2.0 Lymph # (Auto) 1.0 L [place] # (Auto) 0.5 Eos # (Auto) 0.1 Baso # (Auto) 0.0 Immature Gran % 0.6 Nucleated RBC % 0.0 Immature Gran # 0.02 Nucleated RBCs # 0.00 Sodium 136 Potassium 4.0 Chloride 101 Carbon Dioxide 27 Anion Gap 12.0 BUN 8 Creatinine 0.50 L GFR Calculation 141 BUN/Creatinine Ratio 16.00 Glucose 107 H POC Glucose 147 H Calculated Osmolality 269.0 L Calcium 8.2 L Magnesium 1.9 Triglycerides 103 Cholesterol 101 LDL Cholesterol 56.0 VLDL Cholesterol 20.6 HDL Cholesterol 31 L Heart Disease Risk Ratio 3.26 Free T4 1.32 TSH 3rd Generation 5.030 H - Diagnostic Findings Procedure: Chest x-ray: report reviewed by me - EKG EKG results: interpreted by me EKG shows: atrial fibrillation (atrial flutter) Specialty Discharge - Follow Up or Referrals
[2016-07-05] MEDS: DILTIAZEM CD 120 MG CAPSULE PO SCH (21:16)
[2016-07-06 07:15] LABS: Basophils % 0.2 % (0.0-0.8); Eosinophils # 0.1 10*3/uL (0.0-0.87); Eosinophils % 1.4 % (0.00-10.9); Hematocrit 34.8 VOL% (35.7-47.0); Hemoglobin 10.8 GM/DL (12.0-16.0); Immature Granulocytes % 0.5 %; Immature Granulocytes Absolute 0.02 #; Lymphocytes % 24.4 % (21.3-54.2); Mean Corpuscular Hemoglobin 28 PG (27-34); Mean Corpuscular Volume 91.3 FL (87-102); Mean Platelet Volume 10.9 FL (9.6-12.0); Monocytes # 0.5 10*3/uL (0.11-0.8); Monocytes % 10.6 % (1.7-12.7); Neutrophils # 2.7 10*3/uL (1.4-7.4); Neutrophils % 62.9 % (38.7-73.9); Platelet Count 273 T/CUMM (130-400); Red Blood Count 3.81 MC/CUMM (3.8-5.5); Red Cell Distribution Width 18.3 % (9.3-17.3); White Blood Count 4.3 T/CUMM (4-12)
[2016-07-06 07:34] LABS: Hypochromasia 1+
[2016-07-06 07:35] LABS: Microcytosis 1+; Ovalocytes Slight; Platelet Estimate Normal
[2016-07-06 07:53] LABS: Calcium 8.4 MG/DL (8.5-10.1); Magnesium 1.8 MG/DL (1.8-2.4); Osmolality,Calculated 275.8 MOS/KG (273-304); Potassium 4.2 MMOL/L (3.5-5.1)
[2016-07-06] MEDS: LETROZOLE 2.5 MG TABLET PO SCH (09:43)
[2016-07-06] MEDS: RIVAROXABAN 15 MG TABLET PO SCH ×2 (09:43→17:34)
[2016-07-06] MEDS: FUROSEMIDE 40 MG TABLET PO SCH (09:43)
[2016-07-06] MEDS: ASCORBIC ACID 500 MG TABLET PO SCH (09:43)
[2016-07-06] MEDS: METOPROLOL TARTRATE 100 MG TABLET PO SCH ×2 (09:43→20:44)
[2016-07-06] MEDS: MAGNESIUM OXIDE 400 MG TABLET PO SCH ×2 (09:43→20:44)
[2016-07-06] MEDS: metFORMIN 500 MG TABLET PO SCH ×2 (09:43→20:43)
[2016-07-06] MEDS: LOSARTAN 25 MG TABLET PO SCH (09:43)
[2016-07-06] MEDS: DESITIN 4OZ/NYSTATIN 15 GRAM MIXTURE PASTE TOP SCH ×2 (09:44→20:44)
[2016-07-06] MEDS: DIGOXIN 0.125 MG TABLET PO SCH (14:16)
--- NOTE | 2016-07-06 14:56 | Cardiology Progress Note ---
Assessment and Plan (1) Saddle embolism of pulmonary artery Status: Acute Assessment and plan: 70-year-old female, recent massive PE, s/p EKOS and IVC filter. She is in atrial flutter, still with RVR. Hemodynamically stable and minimally symptomatic. Quite debilitated. Continue beta-cole, digoxin. Incr Cardizem CD 120 to 120 mg bid. HR trend improved. Continue anticoagulation. No need for cardioversion at this time. If the flutter remains persistent and difficult to control, we may consider DCCV or ablation. High periprocedural risk due to recent IVC filter placement susp DVT. RVR may contribute to CMP. If not improving with better rate/rhythm control, she will need ischemic evaluation. Discharge planning - swing bed in progress. She will need to FU with cardiology in 2 weeks. Current Visit: Yes (2) Post IVC filter Status: Chronic Current Visit: Yes Cardiology - PN: Subj Interval history: She is still feeling quite weak. Atrial flutter, rate better controlled. Blood pressure normal. Still with mild lower extremity swelling Exam (Progress Note) - Constitutional Vitals: Period Temp Pulse Resp BP Sys/Contreras Pulse Ox Last 24 Hr 97.3 F-98.5 F 68-106 16-20 100-166/51-81 91-97 General appearance: normal weight, over weight - Head Head exam: Present: normal inspection, normocephalic - Eye Eye exam: Absent: conjunctival injection Pupils: Absent: dilated - ENT ENT exam: Present: normal external ear exam - Neck Neck exam: Present: normal inspection - Respiratory Respiratory exam: Present: clear to auscultation bilaterally - Cardiovascular Cardiovascular exam: Present: irregular rhythm, systolic murmur, tachycardia - GI/Abdominal GI/Abdominal exam: Present: normal bowel sounds - Extremities Exam Extremities exam: Present: normal inspection, normal capillary refill, edema (1+ ) - Back Exam Back exam: Present: normal inspection - Neurological Exam Neurological exam: Present: alert - Psychiatric Psychiatric exam: Present: normal affect, normal mood - Skin Skin exam: Present: normal color, warm. Absent: cyanosis Result/EKG - Labs CBC & BMP: 07/06/16 07:07 07/06/16 07:07 Lab Results: I have reviewed the past 24 hour labs Labs: Laboratory Results - last 24 hr 07/05/16 07/06/16 07/06/16 15:30 07:07 07:07 WBC 4.3 RBC 3.81 Hgb 10.8 L Hct 34.8 L MCV 91.3 MCH 28 MCHC 31.0 L RDW 18.3 H Plt Count 273 MPV 10.9 Neut % (Auto) 62.9 Lymph % (Auto) 24.4 [place] % (Auto) 10.6 Eos % (Auto) 1.4 Baso % (Auto) 0.2 Neut # (Auto) 2.7 Lymph # (Auto) 1.0 L [place] # (Auto) 0.5 Eos # (Auto) 0.1 Baso # (Auto) 0.0 Immature Gran % 0.5 Nucleated RBC % 0.0 Immature Gran # 0.02 Nucleated RBCs # 0.00 Platelet Estimate Normal Hypochromasia 1+ Microcytosis 1+ Ovalocytes Slight Sodium 137 Potassium 4.2 Chloride 101 Carbon Dioxide 26 Anion Gap 14.2 BUN 6 L Creatinine 0.40 L GFR Calculation 152 BUN/Creatinine Ratio 15.00 Glucose 180 H POC Glucose 156 H Calculated Osmolality 275.8 Calcium 8.4 L Magnesium 1.8 07/06/16 07/06/16 07:09 11:19 WBC RBC Hgb Hct MCV MCH MCHC RDW Plt Count MPV Neut % (Auto) Lymph % (Auto) [place] % (Auto) Eos % (Auto) Baso % (Auto) Neut # (Auto) Lymph # (Auto) [place] # (Auto) Eos # (Auto) Baso # (Auto) Immature Gran % Nucleated RBC % Immature Gran # Nucleated RBCs # Platelet Estimate Hypochromasia Microcytosis Ovalocytes Sodium Potassium Chloride Carbon Dioxide Anion Gap BUN Creatinine GFR Calculation BUN/Creatinine Ratio Glucose POC Glucose 156 H 209 H Calculated Osmolality Calcium Magnesium - EKG EKG results: interpreted by me Specialty Discharge - Follow Up or Referrals
[2016-07-06] MEDS: DILTIAZEM CD 120 MG CAPSULE PO SCH (20:43)
[2016-07-07 06:47] LABS: Basophils % 0.3 % (0.0-0.8); Eosinophils # 0.1 10*3/uL (0.0-0.87); Eosinophils % 1.9 % (0.00-10.9); Hematocrit 32.4 VOL% (35.7-47.0); Hemoglobin 10.1 GM/DL (12.0-16.0); Immature Granulocytes % 1.1 %; Immature Granulocytes Absolute 0.04 #; Lymphocytes # 1.1 10*3/uL (1.4-4.0); Lymphocytes % 30.3 % (21.3-54.2); Mean Corpuscular HGB Conc 31.2 GM/DL (32-36); Mean Corpuscular Hemoglobin 29 PG (27-34); Mean Corpuscular Volume 92.6 FL (87-102); Mean Platelet Volume 10.4 FL (9.6-12.0); Monocytes # 0.5 10*3/uL (0.11-0.8); Monocytes % 12.4 % (1.7-12.7); Platelet Count 347 T/CUMM (130-400); Red Cell Distribution Width 18.5 % (9.3-17.3); White Blood Count 3.6 T/CUMM (4-12)
[2016-07-07 07:32] LABS: Calcium 8.1 MG/DL (8.5-10.1); Magnesium 1.8 MG/DL (1.8-2.4); Osmolality,Calculated 275.8 MOS/KG (273-304); Potassium 4.1 MMOL/L (3.5-5.1)
[2016-07-07] MEDS: LETROZOLE 2.5 MG TABLET PO SCH (09:16)
[2016-07-07] MEDS: METOPROLOL TARTRATE 100 MG TABLET PO SCH (09:16)
[2016-07-07] MEDS: metFORMIN 500 MG TABLET PO SCH (09:16)
[2016-07-07] MEDS: LOSARTAN 25 MG TABLET PO SCH (09:16)
[2016-07-07] MEDS: ASCORBIC ACID 500 MG TABLET PO SCH (09:16)
[2016-07-07] MEDS: MAGNESIUM OXIDE 400 MG TABLET PO SCH (09:16)
[2016-07-07] MEDS: DESITIN 4OZ/NYSTATIN 15 GRAM MIXTURE PASTE TOP SCH (09:17)
[2016-07-07] MEDS: DILTIAZEM CD 120 MG CAPSULE PO SCH (09:17)
[2016-07-07] MEDS: FUROSEMIDE 40 MG TABLET PO SCH (09:17)
[2016-07-07] MEDS: RIVAROXABAN 15 MG TABLET PO SCH (09:17)
[2016-07-07 11:52] VITALS: BP 118/68
[2016-07-07] MEDS ORDERED: DILTIAZEM CD 180 MG CAPSULE PO SCH (12:00)
--- NOTE | 2016-07-07 12:28 | Discharge Summary ---
Hospital Course - Hospital Course Hospital Course: HELPER [employer] FINISHER: Dr. Messer SUMMARY: Ms. Ricketts, 70BF, has multiple medical problems including diabetes, PSVT, paroxysmal atrial fibrillation. Patient presented to the emergency department June 28, 2016 with recurrent, large bilateral pulmonary emboli. She had been noncompliant with Xarelto. She emergently underwent [place] with localized TPA infusion, performed by Dr. Ramirez. She tolerated the procedure well and without complication. Because of her noncompliance with anticoagulation, she underwent IVC filter implantation the following day. Echocardiogram reveals a new cardiomyopathy. EF 20%, PAP 45 mmHg. JULY 04, 2016: Patient tells me she is feeling well. She denies chest pain, heaviness or tightness. She had sinus tachycardia over the weekend and required gentle hydration. This has resolved. She continues to improve. She is tolerating beta blockade, ARB and digoxin. She continues to take Xarelto 15 mg orally twice daily, this was initiated June 30, 2016. In the morning, I will recheck a TSH, fasting lipid profile. At some point, she will need heart catheterization to evaluate her newly discovered cardiomyopathy. I have consulted case management for evaluation of candidacy for swing bed placement. She may be a candidate for transfer to swing bed facility to complete her loading of Xarelto in the future consider cardiac catheterization once she has a past the acute phase of PE, and demonstrates medical compliance. Will discuss with Dr. Montanez and await further recommendations JULY 05, 2016: Overnight, her heart rate has improved with the addition of a calcium channel cole. Unfortunately, cannot escalate dose due to blood pressure. She remains in atrial flutter. Continue Xarelto 15 mg orally twice daily. At some point, hopefully, she will convert back to normal sinus rhythm. If she remains in atrial flutter with difficulty controlling the rate, antiarrhythmic or cardioversion, possibly ablation may be considered. Ideally, this will need to be pursued once her PTE resolves. Controlling her rapid ventricular response may also improve her cardiomyopathy. She will need ischemic evaluation if her cardiomyopathy does not improve after reevaluation. Hopefully, patient is a candidate for swing bed or LTAC soon. She is being evaluated we are awaiting their acceptance. JULY 07, 2016: Overnight, patient has done well. She is stable and ready for discharge to [facility] today. Denies chest pain, heaviness or tightness. At this point, she remains in atrial flutter, controlled rate. Will give her a one- month follow-up with Dr. Messer. If the patient remains in atrial flutter, she may be a candidate for ablation or DCCV. Discharge medications include the following: Xarelto 15 mg 1 p.o. daily 21 days. This was initiated on June 30, 2016 and will need to continue through the evening dose of July 21, 2016. Then, July 22, 2016 she will be transitioned to Xarelto 20 mg orally each evening with meal. Other discharge medications include the following: Diltiazem 180 mg 1 p.o. twice daily Metoprolol 100 mg 1 p.o. twice daily Digoxin 0.125 mg 1 p.o. daily Furosemide 40 mg 1 p.o. daily Losartan 25 mg 1 p.o. daily Amaryl 4 mg 1 p.o. daily Atorvastatin 20 mg 1 p.o. nightly Patient will not require aspirin as she is taking Xarelto. - Time spent with patient Time with patient DS: Greater than 30 minutes Diagnosis - Discharge Diagnosis (1) Noncompliance Status: Chronic (2) Hypertension Status: Chronic (3) Diabetes Status: Chronic (4) Diabetes mellitus type 2 in nonobese Status: Chronic (5) Saddle embolism of pulmonary artery Status: Acute (6) Post IVC filter Status: Chronic (7) Atrial flutter Status: Acute Specialty Discharge - Follow Up or Referrals Follow up with: Brice Messer MD [Physician] - 1 Month (BMP, Mg, CBC. EKG) Discharge Plan - Discharge Data Disposition: Disch/Xfer to Snf Condition at Discharge: Stable Discharge Diet: heart healthy Activity: as per physical therapy Hygiene: no restrictions Weight Bearing at Discharge: other (per PT) Driving: not until seen by doctor Contact your physician if you experience:: fever over 101, Difficulty voiding, Redness or swelling, Nausea/Vomiting, Shortness of breath, Bleeding, pain uncontrolled by pain medications - Discharge Medications New Digoxin Tab [Lanoxin Tab] 0.125 mg PO DAILY@1300 #30 tablet Diltiazem Cd Cap [Cardizem CD] 180 mg PO BID #60 capsule Metoprolol Tartrate Tab [Lopressor Tab] 100 mg PO BID #60 tablet Rivaroxaban [Xarelto] 20 mg PO DAILY W/SUPPER #30 tablet Furosemide Tab [Lasix Tab] 40 mg PO DAILY #30 tablet Continue Ascorbic Acid [Vitamin C] 1,000 mg PO DAILY #30 caplet Glimepiride 4 mg PO DAILY #30 caplet Letrozole 2.5 mg PO DAILY #30 capsule Losartan [Cozaar] 25 mg PO DAILY #30 caplet Magnesium Oxide 400 mg PO BID #60 caplet Rivaroxaban [Xarelto] 15 mg PO BID W/MEALS #29 tablet metFORMIN [Glucophage] 500 mg PO BID #60 caplet No Action Metoprolol Tartrate Tab [Lopressor Tab] 50 mg PO BID - Follow Up or Referral - Forms/Instructions Instructions: Inferior Vena Cava Filter Placement (DC) Exam - Constitutional Vitals: Period Temp Pulse Resp BP Sys/Contreras Pulse Ox Last 24 Hr 97 F-98.3 F 69-117 18-20 107-134/57-81 91-97 Exam: General: [Appears well with no apparent distress.] [Pleasant and cooperative. ] [Appears comfortable.] HEENT: [Bilateral arcus noted. Normocephalic, atraumatic. Mucous membranes moist. No jaundice noted. Conjunctiva moist and clear, sclerae anicteric] Neck: No JVD/HJR, no thyromegaly or lymphadenopathy noted. No carotid bruit appreciated Cardiac: [Regular rhythm, regular rate. [No murmur rub or gallop.] Lungs: [Rhonchi noted posteriorly. No wheezing noted. Using oxygen intermittently Abdomen: Soft, bowel sounds normoactive. Nontender and nondistended. No abdominal bruit or thrill noted. No masses noted. Musculoskeletal: No fluid collection. Decreased range of motion is noted. Extremities: Right groin soft, free of hematoma or bruit. Mild ecchymosis noted. ] Upper extremity pulses 2+. Lower extremity pulses 2+. Capillary refill less than 3 seconds. Skin: No unusual lesions or rashes. No skin breakdown appreciated. Neuro: Awake, alert and oriented 3. Moves all extremities well without hemiparesis or paralysis. No essential tremor is appreciated. Discharge Results Procedures and tests throughout hospitalization: Pending Orders 07/08/16 04:00 BMP w/ Mg [Basic Metabolic Panel w/Mg] IN AM CBC [Comp Blood Count Auto Diff] IN AM Labs on day of discharge: Labs from last 24 hours 07/07/16 07/07/16 06:59 04:00 WBC 3.6 L RBC 3.50 L Hgb 10.1 L Hct 32.4 L MCV 92.6 MCH 29 MCHC 31.2 L RDW 18.5 H Plt Count 347 D MPV 10.4 Neut % (Auto) 54.0 Lymph % (Auto) 30.3 [place] % (Auto) 12.4 Eos % (Auto) 1.9 Baso % (Auto) 0.3 Neut # (Auto) 2.0 Lymph # (Auto) 1.1 L [place] # (Auto) 0.5 Eos # (Auto) 0.1 Baso # (Auto) 0.0 Immature Gran % 1.1 Nucleated RBC % 0.0 Immature Gran # 0.04 Nucleated RBCs # 0.00 Sodium 137 Potassium 4.1 Chloride 101 Carbon Dioxide 29 Anion Gap 11.1 BUN 6 L Creatinine 0.50 L GFR Calculation 141 BUN/Creatinine Ratio 12.00 Glucose 181 H Calculated Osmolality 275.8 Calcium 8.1 L Magnesium 1.8 - Imaging and Cardiology Cardiology Procedure: report reviewed by me Procedure: Chest x-ray: report reviewed by me, CT: report reviewed by me, Ultrasound: report reviewed by me DS: Provider Date of admission: 06/28/16 19:39 Primary care physician: Jay Winslow MD Attending physician on admission: Zan Ramirez MD Consults: 06/28/16 22:49 Consult to Pastoral Services [CONS] Routine Comment: Pastoral Screen: Request Measurement Psychologist Visit Pastoral Screen Source of Request: Patient 06/29/16 19:11 Consult to Case Mgmt/Social Srvs [CONS] Routine Reason for Case Mgmt/Social Srvs: Equipment Consult Comment: Patient is requesting a wheelchair at home. 07/02/16 15:44 Consult to Physical Therapy [CONS] Routine Reason for Physical Therapy: Weakness 07/04/16 12:54 Consult to Case Mgmt/Social Srvs [CONS] Routine Reason for Case Mgmt/Social Srvs: Discharge Planning Consult Comment: SWB hopefully tomorrow 07/04/16 13:51 Consult to Occupational Therapy [CONS] Routine Reason for Occupational Therapy: Evaluate and Treat Discharging clinician: Katty Pulido NP Expected date of discharge: 07/07/16
== END 2016-07-07 13:48 | disposition swing bed (61) | DRG 167 ==
LOC: N.ED 17:02 → N.EDINP 19:39 → N.CC 19:49 → N.ED 19:51 → N.CC 21:24 → N.TELES 06-30 15:35
PROVIDERS: ADMIT Internal Medicine Cardiovascular Disease; ATTEND Internal Medicine Cardiovascular Disease

== ENCOUNTER 2016-11-20 16:23 | Inpatient (IN) ==
--- NOTE | 2016-11-20 17:22 | Emergency Department Note ---
Arrival - Arrival Chief Complaint: Extremity Problem Stated Complaint: LEGS SWOLLEN AND FOOT ED Nursing Triage Note: Pt c/o increased swelling in lower ext since yesterday. Family member also reports pt has open draining ulcers to her right posterior thigh, inner buttocks, and left thigh for a while now. Mode of Arrival: Wheelchair Time Seen by Provider: 11/20/16 16:41 - History of Present Illness HPI Narrative: Patient presents to the ER today with c/o increased swelling in feet and open wounds to bilateral thighs. The family member present states that her sisters normally take care of her but today she noticed that these wounds looked worse. She states she has had these wounds "for a while." Denies fever. Allergies- tape, PCN PMH- Afib, HTN, PE (in the past), DM, anemia Allergies/Adverse Reactions: Allergies Allergy/AdvReac Type Severity Reaction Status Date / Time adhesive tape Allergy RASH Verified 11/15/16 12:58 Penicillins Allergy RASH Verified 11/15/16 12:58 Home Medications: Home Medications Medication Instructions Recorded Confirmed Type Metoprolol Tartrate Tab [Lopressor 50 mg PO BID 06/28/16 11/20/16 History Tab] Losartan [Cozaar] 25 mg PO DAILY #30 caplet 07/07/16 11/20/16 Rx Magnesium Oxide 400 mg PO BID #60 caplet 07/07/16 11/20/16 Rx Rivaroxaban [Xarelto] 15 mg PO BID W/MEALS #29 tablet 07/07/16 11/20/16 Rx Azithromycin [Azithromycin Z Pack] 250 mg PO DIRECTED #1 packet 11/15/1609/29 Rx HYDROcodone/ACETAMIN 5-325 [[place] 1 tablet PO Q6H PRN #14 tablet 11/15/16 Rx 5-325] Amiodarone Tab [Cordarone Tab] 200 mg PO BID 11/20/16 11/20/16 History Review of System - Review of System 12 point system: reviewed and no additional remarkable complaints except as stated Medical,Surgical,& Family Hx - Medical History Cardio: History of: Cardiac Dysrhythmia (psvt 2008, AFIB), Hypertension HEENT: History of: Eye Problem (eye surgery bilat, cataracts) Endocrine: History of: Diabetes Mellitus (IDDM), Diabetes Mellitus (NIDDM) Respiratory: History of: Bronchitis, Pulmonary Embolism (Twice in the past), Pneumonia Hematology: History of: Anemia - Surgical History Abdominal Surgeries: Surgical HX of: Colonoscopy, EGD Reproductive Surgeries: Surgical HX of;: Breast Surgery (lumpectomy) - Family History Family History: Reports;: Family Cancer (breast cancer, mom), Family Diabetes ( 2 brothers), Family Hypertension (brother), Family Stroke (brother) - Social History Smoking Status: Never smoker Exam Physical Examination: General General appearance: Frail 71 year old black female is alert, in no apparent distress - Head [Head exam: Present: atraumatic, normocephalic, normal inspection] - Eye Eye exam: Present: normal appearance, PERRL, EOMI - ENT ENT exam: Present:mucous membranes moist - Neck Neck exam: Present: normal inspection, full ROM, trachea midline - Chest Chest inspection: Present: normal inspection, symmetric chest wall rise - Respiratory Respiratory exam: Present: clear lung sounds bilaterally - Cardiovascular Cardiovascular exam: Present: regular rate, normal rhythm, normal heart sounds - Abdominal Exam Abdominal exam: Present: soft, normal bowel sounds, non tender - Rectal Exam Rectal exam: Present: deferred - Extremities Exam Extremities exam: Present: normal inspection, full ROM, normal capillary refill - Back Exam Back exam: Present: normal inspection, full ROM - Neurological Exam Neurological exam: Present: alert, oriented X3, CN II-XII intact - Psychiatric Psychiatric exam: Present: normal affect, normal mood - Skin Skin exam: Present: warm, dry, normal color, 1 large ulcer to right thigh, 2 large, draining ulcers to left thigh and has multiple small open wounds above it , she also has a pressure ulcer to her coccyx. These pressure ulcers are malodorous and have some escar present as well. Vital Signs: Vital Signs Temperature 98.1 F 11/21/16 10:35 Pulse Rate 60 11/21/16 10:35 Respiratory Rate 18 11/21/16 10:35 Blood Pressure 120/60 11/21/16 10:35 O2 Sat by Pulse Oximetry 93 L 11/21/16 10:35 Course - Reevaluation(s) Time: 18:07 (Spoke with Liudmila with the [facility]. She states they will come see her. ) Results - Labs CBC & BMP: 11/21/16 10:18 10/09/17 05:09 Disposition Clinical Impression: Infected decubitus ulcer Case discussed with: patient Disposition: Still a Patient Condition: Stable Time of Disposition: 18:00
[2016-11-20 17:49] LABS: Basophils % 0.1 % (0.0-0.8); Hematocrit 28.3 VOL% (35.7-47.0); Hemoglobin 8.8 GM/DL (12.0-16.0); Immature Granulocytes % 0.9 %; Immature Granulocytes Absolute 0.08 #; Lymphocytes # 0.6 10*3/uL (1.4-4.0); Mean Corpuscular HGB Conc 31.1 GM/DL (32-36); Mean Corpuscular Hemoglobin 29 PG (27-34); Mean Corpuscular Volume 92.8 FL (87-102); Mean Platelet Volume 10.8 FL (9.6-12.0); Monocytes # 0.6 10*3/uL (0.11-0.8); Monocytes % 6.1 % (1.7-12.7); Neutrophils # 7.9 10*3/uL (1.4-7.4); Neutrophils % 85.9 % (38.7-73.9); Platelet Count 341 T/CUMM (130-400); Red Blood Count 3.05 MC/CUMM (3.8-5.5); White Blood Count 9.2 T/CUMM (4-12)
[2016-11-20 18:08] LABS: Apearance,Urine CLEAR (Clear); Bacteria,Urine Occasional /HPF (Few); Bilirubin,Urine Negative (Negative); Blood, Urine Moderate mg/dL (Negative); Glucose,Urine (UA) >=500 mg/dL (Negative); Ketones,Urine Negative (Negative); Mucus,Urine Few /LPF (Occasional); Nitrite,Urine Negative (Negative); Protein,Urine Negative; RBC,Urine 6 /HPF (0-4); Urine Color Yellow (Yellow); Urine Specific Gravity 1.025 (1.001-1.035); WBC,Urine 1 /HPF (0-6)
[2016-11-20 18:13] LABS: Eosinophils 1 % (0-10); Hypochromasia 1+; Lymphocytes 7 % (20-55); Segmented Neutrophils 85 % (50-85)
[2016-11-20 18:15] LABS: Anisocytosis Slight; Elliptocytes Few; Platelet Estimate Adequate
[2016-11-20 18:16] LABS: Albumin 1.9 G/DL (3.4-5.0); Bilirubin,Total 0.7 MG/DL (0.2-1.0); Calcium 8.4 MG/DL (8.5-10.1); Osmolality,Calculated 287.7 MOS/KG (273-304); Potassium 5.1 MMOL/L (3.5-5.1); Total Cells Counted 100; Total Protein 7.1 G/DL (6.4-8.3)
[2016-11-20] MEDS ORDERED: DOCUSATE SODIUM 100 MG CAPSULE PO PRN (18:39)
[2016-11-20] MEDS ORDERED: GLUCAGON 1 MG VIAL IM PRN (18:39)
[2016-11-20] MEDS ORDERED: ONDANSETRON 4 MG/2 ML VIAL IV PRN (18:39)
[2016-11-20] MEDS ORDERED: ACETAMINOPHEN 325 MG TABLET PO PRN ×2 (18:39)
[2016-11-20] MEDS ORDERED: DEXTROSE 50% 25 GM/50 ML VIAL IV PRN (18:39)
[2016-11-20] MEDS ORDERED: diphenhydrAMINE CAP 25 MG CAPSULE PO PRN (18:39)
[2016-11-20] MEDS ORDERED: MORPHINE 2 MG/1 ML SYRINGE IV PRN (18:39)
[2016-11-20] MEDS ORDERED: INSULIN LISPRO 100 UNIT/ML SUBCUT SCH (19:00)
[2016-11-20] MEDS ORDERED: VANCOMYCIN INJ 1,000 MG in SODIUM CHLORIDE 0.9% 250 ML IV SCH (19:00)
--- NOTE | 2016-11-20 19:05 | Hospitalist History & Physical ---
Assessment and Plan - Time spent with patient Time spent with patient: Greater than 30 minutes (1) Paroxysmal SVT (supraventricular tachycardia) Status: Resolved Assessment and plan: 71-year-old -[place] female with history of hypertension, paroxysmal A. fib, history of SVT, diabetes, bilateral pulmonary embolism on Xarelto, debility admitted by the hospitalist service with multiple infected decubitus ulcers with hyperglycemia, hyponatremia, elevated lactic acid of 4.5, low-grade fever and tachycardia. She will be admitted and given bolus IV fluids and sliding scale insulin. She will be started on vancomycin for the wounds and Dr. Jacobson will be consulted in the morning. She will made n.p.o. after midnight for surgery tomorrow. Will get blood cultures and urine cultures along with wound cultures and check labs in the morning. She also has some lower extremity edema and with her history of pulmonary embolism will go ahead and check venous Dopplers of bilateral lower extremities. Colon catheter has been placed for comfort. Dr. Cruz will see and examine patient and further recommendations to follow. Current Visit: No (2) Atrial fibrillation Status: Acute Current Visit: No (3) Post IVC filter Status: Chronic Current Visit: No (4) Noncompliance Status: Chronic Current Visit: No (5) Hypertension Status: Chronic Current Visit: No (6) Debility Status: Acute Current Visit: No (7) Bilateral pulmonary embolism Status: Acute Current Visit: No (8) Diabetes mellitus Status: Acute Current Visit: No (9) Hyperglycemia Status: Acute Current Visit: Yes History of Present Illness Chief complaint: Lower extremity swelling and painful pressure ulcers History of present illness: Ms. Ricketts is a 71 year old -[place] female with history of diabetes, hypertension, previous pulmonary embolism, PSVT, paroxysmal A. fib, and breast cancer presented to the ED with complaints of lower extremity swelling and hip and buttock wounds. Patient had a recent admission in June where she had bilateral pulmonary embolisms and was underwent Ekos procedure with localized TPA infusion. She also underwent IVC filter placement because of noncompliance with her anticoagulation. Echocardiogram at that time showed an EF of 20%. She was transferred to swing bed at that time due to debility from her hospital stay. Patient states she has been home for approximately 3 months now and she says she gets up into a wheelchair with help from her family members. She came to the ED on 11/15/2016 for cough and rhinorrhea and bilateral leg pain. She was diagnosed with acute bronchitis, given a Z-Andrae and told to follow-up with orthopedist for evaluation of DJD of the knees. She is running low-grade fever but her vital signs are stable. White count is normal, H&H is stable, hyponatremia at 131, hyperglycemia at 588, lactic acid is 4.5, urine is negative for UTI, chest x-ray okay. Upon exam patient is in mild distress due to pain. She has large unstageable infected pressure ulcers on bilateral hips bilateral buttocks and sacral region. Some of these extend down into the posterior thigh. There is drainage and odor as well. She also has bilateral lower extremity edema. After discussion with Heather Sanchez NP in the ED and Dr. Cruz the admitting hospitalist, it was agreed patient will be admitted for further evaluation and treatment. Home Medications Medication Instructions Recorded Confirmed Type Metoprolol Tartrate Tab [Lopressor 50 mg PO BID 06/28/16 07/07/16 History Tab] Ascorbic Acid [Vitamin C] 1,000 mg PO DAILY #30 caplet 07/07/16 07/07/16 Rx Digoxin Tab [Lanoxin Tab] 0.125 mg PO DAILY@1300 #30 tablet 07/07/16 07/07/16 Rx Diltiazem Cd Cap [Cardizem CD] 180 mg PO BID #60 capsule 07/07/16 07/07/16 Rx Furosemide Tab [Lasix Tab] 40 mg PO DAILY #30 tablet 07/07/16 07/07/16 Rx Glimepiride 4 mg PO DAILY #30 caplet 07/07/16 07/07/16 Rx Letrozole 2.5 mg PO DAILY #30 capsule 07/07/16 07/07/16 Rx Losartan [Cozaar] 25 mg PO DAILY #30 caplet 07/07/16 07/07/16 Rx Magnesium Oxide 400 mg PO BID #60 caplet 07/07/16 07/07/16 Rx Metoprolol Tartrate Tab [Lopressor 100 mg PO BID #60 tablet 07/07/16 07/07/16 Rx Tab] Rivaroxaban [Xarelto] 15 mg PO BID W/MEALS #29 tablet 07/07/16 07/07/16 Rx Rivaroxaban [Xarelto] 20 mg PO DAILY W/SUPPER #30 tablet 07/07/16 07/07/16 Rx metFORMIN [Glucophage] 500 mg PO BID #60 caplet 07/07/16 07/07/16 Rx Azithromycin [Azithromycin Z Pack] 250 mg PO DIRECTED #1 packet 11/15/16 Rx HYDROcodone/ACETAMIN 5-325 [[place] 1 tablet PO Q6H PRN #14 tablet 11/15/16 Rx 5-325] Allergies Allergy/AdvReac Type Severity Reaction Status Date / Time adhesive tape Allergy RASH Verified 11/15/16 12:58 Penicillins Allergy RASH Verified 11/15/16 12:58 Medical,Surgical,& Family Hx - Medical History Cardio: History of: Cardiac Dysrhythmia (psvt 2009, AFIB), Hypertension HEENT: History of: Eye Problem (eye surgery bilat, cataracts) Endocrine: History of: Diabetes Mellitus (IDDM), Diabetes Mellitus (NIDDM) Respiratory: History of: Bronchitis, Pulmonary Embolism (Twice in the past), Pneumonia Hematology: History of: Anemia - Surgical History Abdominal Surgeries: Surgical HX of: Colonoscopy, EGD Reproductive Surgeries: Surgical HX of;: Breast Surgery (lumpectomy) - Family History Family History: Reports;: Family Cancer (breast cancer, mom), Family Diabetes ( 2 brothers), Family Hypertension (brother), Family Stroke (brother) - Social History Smoking Status: Never smoker Frequency of Alcohol Use: None Type of Drug Use: None Marital Status: Lives With:: Children Functional capacity: wheelchair bound 12 point system: reviewed and no additional remarkable complaints except as stated Exam - Constitutional Vitals: Period Temp Pulse Resp BP Sys/Contreras Pulse Ox Last 24 Hr 99.6 F-100.0 F 68-107 18-22 107-153/52-75 100 Exam: 71-year-old -[place] female, mild distress due to pain, alert and oriented Chest clear CV regular rate and rhythm abdomen obese, nontender Extremities multiple unstageable pressure ulcers to bilateral hips and buttocks and sacrum and some extending to the thigh Results - Labs CBC & BMP: 11/20/16 17:02 11/20/16 17:02 Lab Results: I have reviewed the past 24 hour labs - Impressions EKG is pending - Diagnostic Findings Procedure: Chest x-ray: pending, Ultrasound: pending Quality Measures - VTE Contraindication to Pharmacological VTE Prophylaxis: Already on Theraputic Agent , No Prophylaxis Needed
[2016-11-20] MEDS ORDERED: LACTATED RINGERS 1,000 ML IV ONE (19:07)
[2016-11-20] MEDS ORDERED: VANCOMYCIN 1,000 MG VIAL ONE (19:39)
--- NOTE | 2016-11-20 20:15 | XRay Report ---
Portable chest Indication: Shortness of breath, cough Comparison: November 15, 2016 Findings: Cardiomediastinal contours are stable. Lungs are clear bilaterally. No acute osseous abnormalities. Visualized upper abdomen demonstrates no acute pathology. Impression: No acute cardiopulmonary findings PROCEDURE INTERPRETED AT [facility] DEPARTMENT OF RADIOLOGY Final Report Signed by: Rui Moreno MD
--- NOTE | 2016-11-20 20:26 | Ultrasound Report ---
Exam: US venous doppler LE BI Indication: Pain and swelling Technique: Moreno scale Doppler with color flow with spectral broadening was performed in routine fashion of the lower extremities per routine protocol Findings: The right common femoral, superficial femoral, popliteal and proximal saphenous saphenous veins are patent with normal waveform phasicity and augmentation as well as complete vessel compressibility. There is no evidence of popliteal or Graham's cyst. The left common femoral, superficial femoral, popliteal and proximal saphenous saphenous veins are patent with normal waveform phasicity and augmentation as well as complete vessel compressibility. There is no evidence of popliteal or Graham's cyst. Impression: No evidence of deep venous thrombosis within bilateral lower extremity Ultrasound images were captured and stored. PROCEDURE INTERPRETED AT [facility] DEPARTMENT OF RADIOLOGY Final Report Signed by: Rui Moreno MD
[2016-11-20] MEDS ORDERED: SODIUM CHLORIDE 0.9% 2,000 ML IV ONE (20:30)
[2016-11-20] MEDS ORDERED: LEVOFLOXACIN INJ 500 MG in PREMIX 1 EACH IV SCH (21:00)
[2016-11-20] MEDS ORDERED: VANCOMYCIN INJ 1,000 MG in SODIUM CHLORIDE 0.9% 250 ML IV ONE (21:00)
[2016-11-20] MEDS: INSULIN GLARGINE 100 UNIT/ML SUBCUT SCH (21:39)
[2016-11-20] MEDS ORDERED: VANCOMYCIN INJ 500 MG in SODIUM CHLORIDE 0.9% 100 ML IV ONE (22:00)
[2016-11-21] MEDS ORDERED: INSULIN LISPRO 100 UNIT/ML SUBCUT ONE ×2 (01:16→01:21)
[2016-11-21] MEDS ORDERED: SODIUM CHLORIDE 0.9% 1,000 ML IV ONE (01:23)
[2016-11-21] MEDS: SODIUM CHLORIDE 0.9% 1,000 ML IV SCH ×2 (02:59→10:01)
[2016-11-21 05:50] LABS: Eosinophils % 0.6 % (0.00-10.9); Hematocrit 21.9 VOL% (35.7-47.0); Hemoglobin 6.6 GM/DL (12.0-16.0); Immature Granulocytes % 1.4 %; Lymphocytes # 0.9 10*3/uL (1.4-4.0); Lymphocytes % 13.1 % (21.3-54.2); Mean Corpuscular HGB Conc 30.1 GM/DL (32-36); Mean Corpuscular Hemoglobin 28 PG (27-34); Mean Corpuscular Volume 92.4 FL (87-102); Mean Platelet Volume 11.5 FL (9.6-12.0); Monocytes # 0.8 10*3/uL (0.11-0.8); Monocytes % 11.1 % (1.7-12.7); Neutrophils # 5.3 10*3/uL (1.4-7.4); Neutrophils % 73.8 % (38.7-73.9); Platelet Count 199 T/CUMM (130-400); Red Blood Count 2.37 MC/CUMM (3.8-5.5); Red Cell Distribution Width 16.9 % (9.3-17.3); White Blood Count 7.2 T/CUMM (4-12)
[2016-11-21 06:25] LABS: Band Neutrophils 1 % (0-10); Lymphocytes 16 % (20-55); Platelet Estimate Normal; Segmented Neutrophils 71 % (50-85); Total Cells Counted 100
[2016-11-21 06:34] LABS: Calcium 7.6 MG/DL (8.5-10.1); Magnesium 1.9 MG/DL (1.8-2.4); Osmolality,Calculated 290.3 MOS/KG (273-304); Potassium 4.2 MMOL/L (3.5-5.1); Risk Ratio 3.32; VLDL CHOLESTEROL 18.4 MG/DL
[2016-11-21] MEDS: INSULIN REGULAR 100 UNIT/ML SUBCUT SCH ×3 (06:38→17:57)
[2016-11-21] MEDS: PANTOPRAZOLE 40 MG TABLET PO SCH (09:10)
[2016-11-21] MEDS ORDERED: SODIUM CHLORIDE 0.9% 250 ML IV PRN (10:51)
--- NOTE | 2016-11-21 13:50 | General Surgery Consult Note ---
Assessment and Plan - Time spent with patient Time spent with patient: Greater than 30 minutes (1) Infected decubitus ulcer Status: Acute Assessment and plan: Impression: Decubitus ulcers of 1. Left hip unstageable 2. Left posterior thigh unstageable 3. Sacral unstageable 4. Right hip unstageable Plan: We will need to have patient off Xarelto about 3 days and then we could take to surgery for some further debridement. We will start local wound care at this time. Current Visit: Yes Qualifiers: Pressure ulcer stage: unstageable Qualified Code(s): L89.95 - Pressure ulcer of unspecified site, unstageable; L08.9 - Local infection of the skin and subcutaneous tissue, unspecified; L08.9 - Local infection of the skin and subcutaneous tissue, unspecified (2) Diabetes mellitus type 2 in nonobese Status: Chronic Assessment and plan: Impression: Diabetes type 2 Plan: Medical management Current Visit: No (3) Heart failure, systolic, due to idiopathic cardiomyopathy Status: Acute Assessment and plan: Impression: Cardiomyopathy etiology unknown Plan: Cardiology consult Current Visit: No History of Present Illness Chief complaint: Multiple decubitus ulcers History of present illness: Ms. Ricketts is a 71 year old female -English with a history of an enlarged heart who is on Xarelto at this time. She comes in because of bleeding and foul odor and has multiple decubitus ulcers is going need extensive debridement. Patient become bedridden and is not quite sure why this is related to degenerative joint disease in her knees. Because she had been able get out of bed she did not keep her appointments or go to the doctor for these ulcers until they have gotten as bad as they are at this time. Comes in her hematocrit is 21 with a hemoglobin of 6 and she is getting 2 units of blood at this time. She is only been off the Xarelto a day she needs to be off couple days for we can considering surgery at this point. Home Medications Medication Instructions Recorded Confirmed Type Metoprolol Tartrate Tab [Lopressor 50 mg PO BID 06/28/16 11/20/16 History Tab] Losartan [Cozaar] 25 mg PO DAILY #30 caplet 07/07/16 11/20/16 Rx Magnesium Oxide 400 mg PO BID #60 caplet 07/07/16 11/20/16 Rx Rivaroxaban [Xarelto] 15 mg PO BID W/MEALS #29 tablet 07/07/16 11/20/16 Rx Azithromycin [Azithromycin Z Pack] 250 mg PO DIRECTED #1 packet 11/15/1609/29 Rx HYDROcodone/ACETAMIN 5-325 [[place] 1 tablet PO Q6H PRN #14 tablet 11/15/16 Rx 5-325] Amiodarone Tab [Cordarone Tab] 200 mg PO BID 11/20/16 11/20/16 History Allergies Allergy/AdvReac Type Severity Reaction Status Date / Time adhesive tape Allergy RASH Verified 11/15/16 12:58 Penicillins Allergy RASH Verified 11/15/16 12:58 Medical,Surgical,& Family Hx - Medical History Cardio: History of: Cardiac Dysrhythmia (psvt 2009, AFIB), Hypertension HEENT: History of: Eye Problem (eye surgery bilat, cataracts) Endocrine: History of: Diabetes Mellitus (IDDM), Diabetes Mellitus (NIDDM) Respiratory: History of: Bronchitis, Pulmonary Embolism (Twice in the past), Pneumonia Hematology: History of: Anemia - Surgical History Abdominal Surgeries: Surgical HX of: Colonoscopy, EGD Reproductive Surgeries: Surgical HX of;: Breast Surgery (lumpectomy) - Family History Family History: Reports;: Family Cancer (breast cancer, mom), Family Diabetes ( 2 brothers), Family Hypertension (brother), Family Stroke (brother) - Social History Smoking Status: Never smoker Frequency of Alcohol Use: None Type of Drug Use: None 12 point system: reviewed and no additional remarkable complaints except as stated Exam - Constitutional Vitals: Period Temp Pulse Resp BP Sys/Contreras Pulse Ox Last 24 Hr 97.7 F-100.0 F 57-107 16-22 100-153/46-75 93-100 General appearance: mild distress - Head Head exam: Present: normal inspection - ENT ENT exam: Present: normal exam - Neck Neck exam: Present: normal inspection - Respiratory Respiratory exam: Present: clear to auscultation bilaterally, rales, rhonchi - Cardiovascular Cardiovascular exam: Present: RRR - GI/Abdominal GI/Abdominal exam: Present: hypoactive bowel sounds, soft. Absent: tenderness - Extremities Exam Extremities exam: Present: other (Left hip area has an unstageable necrotic area of skin loss that is superficial but may have a deeper component in that region. There is a second wound in the posterior aspect probably on the thigh but could represent the initial area that is open and having drainage at this time. There is a sacral wound is difficult to evaluate but looks dark and necrotic and this got a lot of loose sloughy material on it. Also has a change in ulcer area on the right thigh hip area this can require additional debridement also. There is a wound on the inner part of the left thigh that is small probably not require much treatment at this point.) - Back Exam Back exam: Present: normal inspection - Neurological Exam Neurological exam: Present: alert, oriented X3, CN II-XII intact, other ( Difficulty in standing or ambulating) - Skin Skin exam: Present: normal color, warm, dry Quality Measures - VTE Contraindication to Pharmacological VTE Prophylaxis: Already on Theraputic Agent , No Prophylaxis Needed Results - Labs CBC & BMP: 11/21/16 10:18 11/21/16 05:09 Lab Results: I have reviewed the past 24 hour labs
[2016-11-21] MEDS ORDERED: CLINDAMYCIN INJ 900 MG in PREMIX 1 EACH IV ONE (13:53)
[2016-11-21] MEDS ORDERED: CHLORHEXIDINE 4% SOLN 118 ML BOTTLE TOP ONE (13:56)
--- NOTE | 2016-11-21 14:49 | Neurology Consult Note ---
History of Present Illness History of present illness: Ms. Ricketts is a 71 year old -[place] female with history of diabetes, hypertension, previous pulmonary embolism, PSVT, paroxysmal A. fib, and breast cancer presented to the ED with complaints of lower extremity swelling and hip and buttock wounds. Patient had a recent admission in June where she had bilateral pulmonary embolisms and was underwent Ekos procedure with localized TPA infusion. She also underwent IVC filter placement because of noncompliance with her anticoagulation. Echocardiogram at that time showed an EF of 20%. She was transferred to swing bed at that time due to debility from her hospital stay. Patient states she has been home for approximately 3 months now and she says she gets up into a wheelchair with help from her family members. Family and patient reported that she just cannot walk anymore. Last time she walked by herself with the help of a walker was in May 2016. Gradually she has gotten worse to the point that she just cannot ambulate anymore. Her legs are weak. No history of stroke. She was found to have multiple decubitus ulcers in the back of the neck and sacrum. No speech difficulties or vision problems reported. No problem with the upper extremities much. Home Medications Medication Instructions Recorded Confirmed Type Metoprolol Tartrate Tab [Lopressor 50 mg PO BID 06/28/16 11/20/16 History Tab] Losartan [Cozaar] 25 mg PO DAILY #30 caplet 07/07/16 11/20/16 Rx Magnesium Oxide 400 mg PO BID #60 caplet 07/07/16 11/20/16 Rx Rivaroxaban [Xarelto] 15 mg PO BID W/MEALS #29 tablet 07/07/16 11/20/16 Rx Azithromycin [Azithromycin Z Pack] 250 mg PO DIRECTED #1 packet 11/15/1609/29 Rx HYDROcodone/ACETAMIN 5-325 [[place] 1 tablet PO Q6H PRN #14 tablet 11/15/16 Rx 5-325] Amiodarone Tab [Cordarone Tab] 200 mg PO BID 11/20/16 11/20/16 History Allergies Allergy/AdvReac Type Severity Reaction Status Date / Time adhesive tape Allergy RASH Verified 11/15/16 12:58 Penicillins Allergy RASH Verified 11/15/16 12:58 12 point system: reviewed and no additional remarkable complaints except as stated Medical,Surgical,& Family Hx - Medical History Cardio: History of: Cardiac Dysrhythmia (psvt 2009, AFIB), Hypertension HEENT: History of: Eye Problem (eye surgery bilat, cataracts) Endocrine: History of: Diabetes Mellitus (IDDM), Diabetes Mellitus (NIDDM) Respiratory: History of: Bronchitis, Pulmonary Embolism (Twice in the past), Pneumonia Hematology: History of: Anemia - Surgical History Abdominal Surgeries: Surgical HX of: Colonoscopy, EGD Reproductive Surgeries: Surgical HX of;: Breast Surgery (lumpectomy) - Family History Family History: Reports;: Family Cancer (breast cancer, mom), Family Diabetes ( 2 brothers), Family Hypertension (brother), Family Stroke (brother) - Social History Smoking Status: Never smoker Frequency of Alcohol Use: None Type of Drug Use: None Exam - Constitutional Vitals: Period Temp Pulse Resp BP Sys/Contreras Pulse Ox Last 24 Hr 97.7 F-100.0 F 57-107 16-22 100-153/46-75 92-100 Exam: GENERAL: Patient is in no acute distress. NECK: Neck is supple. There is no JVD. No carotid bruits present. No thyroid masses. CVS: First and second heart sounds are normal. There is no S3 present. Regular rate and rhythm. RESPIRATORY: Lungs are clear to auscultation without any rales or rhonchi. ABDOMEN: Soft and non-tender. Bowel sounds are present. There is no hepatosplenomegaly. EXT: There is no palpable edema. Peripheral pulses are present. Skin: No rashes Central Nervous system: General: Alert, awake and Oriented x 3 Speech: Fluent Comprehension: Intact and normal Facial expressions: Normal Cranial Nerves: CN1/Olfactory: Normal CN II/ Optic: Normal, Visual Del [place] unreliable CN III, and : SHAJI & EOMI CN V: Normal & intact CN VII: face is symmetric CNVIII: Normal CN XI/X/XI/XII: Intact and Normal Motor: Bulk and Tone is normal. Strength in the lower extremities 2/5 Strength in the upper extremities 3-4/5 Sensory: Decreased for all the modalities of PP, LT and temp sense Reflexes: Absent and symmetrical Cerebellar function: Slow finger to nose testing. Toes: Equivocal Gait: Not tested Results - Labs CBC & BMP: 11/21/16 10:18 11/21/16 05:09 Assessment and Plan (1) Gait disorder Status: Acute Assessment and plan: The etiology of her difficulty in the ablation is not clear. Differential diagnosis included stroke, severe peripheral neuropathy, osteoarthritis and/or combination of all of the above Plan: CT head without contrast Nerve conduction study/EMG Check B12 folate, TSH, CPK, aldolase Consult PT OT Consult TMR Thank you for the counts Current Visit: Yes
--- NOTE | 2016-11-21 14:58 | Order Completion Report ---
See report scanned to EMR
[2016-11-21 16:45] LABS: INR 1.2; PT Patient Result 12.1 SECS; Partial Thromboplastin Time 32.1 SECS (0-40)
[2016-11-21] MEDS: metroNIDAZOLE INJ 500 MG in PREMIX 1 EACH IV SCH ×2 (16:46→20:24)
[2016-11-21 17:14] LABS: Free T4 (Free Thyroxine) 1.15 NG/DL (0.76-1.46); Thyroid Stimulating Hormone 2.72 uIU/ml (0.358-3.74)
[2016-11-21 17:16] LABS: Folate 16.4 NG/ML (5.4-24.0)
--- NOTE | 2016-11-21 18:53 | Hospitalist Progress Note ---
Assessment and Plan (1) Infected decubitus ulcer Status: Acute Assessment and plan: Continue vancomycin and Flagyl. Scheduled for debridement tomorrow by Dr. Jacobson Current Visit: Yes Qualifiers: Pressure ulcer stage: unstageable Qualified Code(s): L89.95 - Pressure ulcer of unspecified site, unstageable; L08.9 - Local infection of the skin and subcutaneous tissue, unspecified; L08.9 - Local infection of the skin and subcutaneous tissue, unspecified (2) History of pulmonary embolism Status: Chronic Assessment and plan: Venous Dopplers currently show no evidence of DVT, CT of the chest from June 2016 showed extensive pulmonary emboli in both pulmonary arteries extending in the upper and lower lobes. Hold Xarelto for surgery. Current Visit: No (3) Gait disorder Status: Acute Assessment and plan: Seen by Dr. Guerra, differential diagnosis stroke versus severe peripheral neuropathy versus osteoarthritis. CT of the head without contrast, nerve conduction study and EMG, B12, folate, TSH, CPK, aldolase, PT and OT consult consult Jp Robert Current Visit: Yes (4) Atrial fibrillation Status: Acute Assessment and plan: Currently in sinus rhythm but continue amiodarone hold Xarelto for surgery. Current Visit: No (5) Diabetes mellitus Status: Chronic Assessment and plan: Continue scheduled insulin, insulin sliding scale, hemoglobin A1c 10.7 Current Visit: Yes (6) Cardiomyopathy Status: Chronic Assessment and plan: Echocardiogram from June 2016 showed an EF of 20% with moderate left ventricular hypertrophy with diastolic dysfunction. PA P of 34 Current Visit: Yes (7) Acute blood loss anemia Status: Acute Assessment and plan: 2 units packed red blood cells hold Xarelto continue Protonix Current Visit: Yes Hospitalist: Subjective Interval history: Patient has multiple wounds on her sacrum and legs I examined all of them most of them are clean except for the one on the left thigh that needs significant debridement. Patient is on Xarelto but I talked to Dr. Jacobson he plans on debriding her in the morning. I would continue her on the vancomycin and Rocephin at this time but we DC the Levaquin. Patient is on Xarelto and amiodarone for atrial fib. Her heart rates a little bit low but I still want to continue her on amiodarone. Exam - Constitutional Vitals: Period Temp Pulse Resp BP Sys/Contreras Pulse Ox Last 24 Hr 97.7 F-99.2 F 57-86 16-18 100-132/46-75 92-98 Exam: Heart Rate-[RRR] Lungs-[CTAB] GI-[+bs soft, NT] Ext-[1+ edema] Neuro [Motor 4/5 bedridden, [alert and oriented times 3] psych [normal mood and flat affect] General [no acute distress] Skin bilateral leg wounds and sacral wounds, left thigh needs debridement Results - Labs CBC & BMP: 11/21/16 10:18 11/21/16 05:09 Lab Results: I have reviewed the past 24 hour labs Labs: Wound culture gram-positive cocci, urine culture gram-negative rods, blood cultures 2 negative no growth - Diagnostic Findings Procedure: Chest x-ray: report reviewed by me (Nothing acute), Ultrasound: report reviewed by me (No evidence of DVT) Quality Measures - VTE Contraindication to Pharmacological VTE Prophylaxis: Already on Theraputic Agent , No Prophylaxis Needed
[2016-11-21] MEDS: MAGNESIUM OXIDE 400 MG TABLET PO SCH (20:25)
[2016-11-21] MEDS: INSULIN GLARGINE 100 UNIT/ML SUBCUT SCH (20:26)
[2016-11-21] MEDS: AMIODARONE 200 MG TABLET PO SCH (20:26)
[2016-11-21 20:46] LABS: Hematocrit 29.2 VOL% (35.7-47.0); Hemoglobin 9.2 GM/DL (12.0-16.0)
[2016-11-21] MEDS: VANCOMYCIN INJ 1,500 MG in SODIUM CHLORIDE 0.9% 500 ML IV SCH (21:22)
--- NOTE | 2016-11-21 22:49 | Cardiology Consult Note ---
Michael Cabrera April RN, am scribing for, and in the presence of, Ortega Fajardo MD 22:48. Assessment and Plan - Time spent with patient Time spent with patient: Greater than 30 minutes (Due to assessment, planning, documentation, medication review) (1) Cardiomyopathy Status: Chronic Assessment and plan: Initial assessment and plan November 21, 2016: Xarelto is on hold in anticipation of surgery Try to have her off the Xarelto as short as is possible to reduce her risk of having a stroke. She has multiple risk factors for stroke Restart amiodarone unless you know the reason not to Check EKG in the a.m. I will follow along with you. Thank you for allowing me to participate in this patient's care Current Visit: Yes (2) Paroxysmal atrial fibrillation Status: Chronic Current Visit: No (3) History of pulmonary embolism Status: Chronic Current Visit: No (4) Diabetes mellitus Status: Chronic Current Visit: Yes (5) Hypertension Status: Chronic Current Visit: Yes History of Present Illness - Data of Consult Patient: known to practice within the last 3 years Consult date: 11/21/16 Requesting Physician: Ricardo Jacobson Primary care physician: Fam Carpio - Consult Narrative Reason for consult: History of cardiomyopathy and atrial fibrillation History of present illness: Crystal Slicer: Dr. Messer PCP: Dr. Carpio Ms. Ricketts is a 71 year old female who is routinely followed by Dr. Messer with a history of pulmonary embolism, diabetes, paroxysmal edge fibrillation, and cardiomyopathy. She is chronically anticoagulated on Xarelto. She is on amiodarone for rate control. Echocardiogram done June 29, 2016 with ejection fraction of 20%. History includes brother with hypertension diabetes. She reports is a lifetime non-smoker. She tells me she came to the emergency department for evaluation yesterday because she became weak. The note from the ED indicates she came in because of increased swelling and open wounds to her thighs. She denies any chest pain, shortness of breath, palpitations, or dizziness. She has been started on IV antibiotics and her Xarelto has not been restarted. H&H this morning was 6.6 and 21.9. She has been ordered 2 units of red blood cells, with the first infusing now. She tells me she has had a problem with anemia in the past. Echocardiogram showed sinus rhythm with heart rate of 58. Venous Doppler was negative for DVT bilateral lower extremities. No acute cardiopulmonary findings were found on the chest x-ray. She is currently resting in bed with daughter at bedside. She changes denies any chest pain, shortness of breath, palpitations, or dizziness. CC: Nancy Rubio MD - Home Medications and Allergies Home Medications: Home Medications Medication Instructions Recorded Confirmed Type Metoprolol Tartrate Tab [Lopressor 50 mg PO BID 06/28/16 11/20/16 History Tab] Losartan [Cozaar] 25 mg PO DAILY #30 caplet 07/07/16 11/20/16 Rx Magnesium Oxide 400 mg PO BID #60 caplet 07/07/16 11/20/16 Rx Rivaroxaban [Xarelto] 15 mg PO BID W/MEALS #29 tablet 07/07/16 11/20/16 Rx Azithromycin [Azithromycin Z Pack] 250 mg PO DIRECTED #1 packet 11/15/1609/29 Rx HYDROcodone/ACETAMIN 5-325 [[place] 1 tablet PO Q6H PRN #14 tablet 11/15/16 Rx 5-325] Amiodarone Tab [Cordarone Tab] 200 mg PO BID 11/20/16 11/20/16 History Allergies/Adverse Reactions: Allergies Allergy/AdvReac Type Severity Reaction Status Date / Time adhesive tape Allergy RASH Verified 11/15/16 12:58 Penicillins Allergy RASH Verified 11/15/16 12:58 - Constitutional Constitutional: Present: as per HPI - EENT Eyes: Present: requires corrective lense. Absent: blurry vision Ears: Absent: decreased hearing, ear pain, tinnitus Nose, mouth and throat: Present: neck pain. Absent: epistaxis, headache(s) - Cardiovascular Cardiovascular: Present: edema. Absent: chest pain at rest, chest pain with activity, diaphoresis, dyspnea, dyspnea on exertion, radiating jaw, neck or arm pain, lightheadedness, orthopnea, palpitations - Respiratory Respiratory: Present: cough. Absent: dyspnea, hemoptysis, dyspnea on exertion, wheezing - Gastrointestinal Gastrointestinal: Absent: abdominal pain, constipation, diarrhea, hematemesis, hematochezia, melena, nausea, vomiting - Genitourinary Genitourinary: Absent: dysuria, hematuria - Musculoskeletal Musculoskeletal: Present: limited range of motion, muscle weakness. Absent: back pain - Neurological Neurological: Present: abnormal gait. Absent: confusion, dizziness, headache(s) , syncope - Psychiatric Psychiatric: Absent: anxiety, depression - Endocrine Endocrine: Present: fatigue - Hematologic/Lymphatic Hematologic/Lymphatic: Present: easy bruising. Absent: easy bleeding Medical,Surgical,& Family Hx - Medical History Cardio: History of: Cardiac Dysrhythmia (psvt 2009, paroxysmal AFIB), Hypertension HEENT: History of: Eye Problem (eye surgery bilat, cataracts) Endocrine: History of: Diabetes Mellitus (IDDM), Diabetes Mellitus (NIDDM) Respiratory: History of: Bronchitis, Pulmonary Embolism (Twice in the past), Pneumonia Hematology: History of: Anemia - Surgical History HEENT Surgeries: Surgical HX of: Eye Surgery (Bilateral cataracts) Abdominal Surgeries: Surgical HX of: Colonoscopy, EGD Reproductive Surgeries: Surgical HX of;: Breast Surgery (lumpectomy) - Family History Family History: Reports;: Family Cancer (breast cancer, mom), Family Diabetes ( 2 brothers), Family Hypertension (brother), Family Stroke (brother) - Social History Smoking Status: Never smoker Have you smoked in the last 12 months: No Frequency of Alcohol Use: None Type of Drug Use: None Lives With:: Children Functional capacity: uses cane/walker Physical Examination Vital Signs Temp Pulse Resp BP Pulse Ox 99.6 F 107 H 18 153/75 100 11/20/16 16:24 11/20/16 16:24 11/20/16 16:24 11/20/16 16:24 11/20/16 16:24 General: Present: Other (Ill-appearing) HEENT: Present: PERRL, Mucus Membranes Moist Neck: Present: Supple Neck, Midline Trachea, No Bruit Cardiac: Present: Reg Rate and Rhythm, No Murmur Lungs: Present: Normal Breath Sounds, No Wheeze, Rales, Rhonchi Neuro: Absent: Resting Tremor, Essential Tremor Abdomen: Present: Soft, Active Bowel Sounds, Non-Tender. Absent: Distended Skin: Present: Other (Wounds noted to thighs, hip, and sacral area). Absent: Rash Musculoskeletal: Present: Decreased Range of Motion, Pain in Joint Extremities: Present: Normal Upper Extr. Pulses, Normal Lower Extr. Pulses, +2 Edema (To bilateral lower extremities) Result/EKG - Labs CBC & BMP: 11/21/16 20:39 11/21/16 05:09 Lab Results: I have reviewed the past 24 hour labs Labs: Laboratory Results - last 24 hr 11/20/16 11/20/16 11/20/16 17:02 17:02 17:02 WBC 9.2 RBC 3.05 L Hgb 8.8 L Hct 28.3 L MCV 92.8 MCH 29 MCHC 31.1 L RDW 17.0 Plt Count 341 MPV 10.8 Neut % (Auto) 85.9 H Lymph % (Auto) 7.0 L [place] % (Auto) 6.1 Eos % (Auto) 0.0 Baso % (Auto) 0.1 Neut # (Auto) 7.9 H Lymph # (Auto) 0.6 L [place] # (Auto) 0.6 Eos # (Auto) 0.0 Baso # (Auto) 0.0 Total Counted 100 Immature Gran % 0.9 Nucleated RBC % 0.0 Immature Gran # 0.08 Segmented Neutrophils 85 Band Neutrophils Lymphocytes 7 L Monocytes 7 Eosinophils 1 Basophils Nucleated RBCs # 0.00 Platelet Estimate Adequate Immature Plt Fraction 0.0 Hypochromasia 1+ Anisocytosis Slight Elliptocytes Few Sodium 131 L Potassium 5.1 Chloride 94 L Carbon Dioxide 29 Anion Gap 13.1 BUN 10 Creatinine 0.80 GFR Calculation 109 BUN/Creatinine Ratio 12.00 Glucose 588 H* POC Glucose Hemoglobin A1c Calculated Osmolality 287.7 Lactic Acid Calcium 8.4 L Magnesium Total Bilirubin 0.70 AST 27 ALT 15 Alkaline Phosphatase 100 B-Natriuretic Peptide 29 Total Protein 7.1 Albumin 1.9 L Globulin 5.2 H Albumin/Globulin Ratio 0.3 L Triglycerides Cholesterol LDL Cholesterol VLDL Cholesterol HDL Cholesterol Heart Disease Risk Ratio Urine Color Urine Appearance Urine pH Ur Specific [place] Urine Protein Urine Glucose (UA) Urine Ketones Urine Blood Urine Nitrate Urine Bilirubin Urine Urobilinogen Urine Leukocytes Urine RBC Urine WBC Urine Bacteria Urine Mucus Ur Culture Indicated? Blood Type Antibody Screen Crossmatch 11/20/16 11/20/16 11/20/16 17:02 17:02 20:12 WBC RBC Hgb Hct MCV MCH MCHC RDW Plt Count MPV Neut % (Auto) Lymph % (Auto) [place] % (Auto) Eos % (Auto) Baso % (Auto) Neut # (Auto) Lymph # (Auto) [place] # (Auto) Eos # (Auto) Baso # (Auto) Total Counted Immature Gran % Nucleated RBC % Immature Gran # Segmented Neutrophils Band Neutrophils Lymphocytes Monocytes Eosinophils Basophils Nucleated RBCs # Platelet Estimate Immature Plt Fraction Hypochromasia Anisocytosis Elliptocytes Sodium Potassium Chloride Carbon Dioxide Anion Gap BUN Creatinine GFR Calculation BUN/Creatinine Ratio Glucose POC Glucose 492 H Hemoglobin A1c Calculated Osmolality Lactic Acid 4.5 H Calcium Magnesium Total Bilirubin AST ALT Alkaline Phosphatase B-Natriuretic Peptide Total Protein Albumin Globulin Albumin/Globulin Ratio Triglycerides Cholesterol LDL Cholesterol VLDL Cholesterol HDL Cholesterol Heart Disease Risk Ratio Urine Color Yellow Urine Appearance Clear Urine pH 8.0 Ur Specific [place] 1.025 Urine Protein Negative Urine Glucose (UA) >=500 Urine Ketones Negative Urine Blood Moderate Urine Nitrate Negative Urine Bilirubin Negative Urine Urobilinogen 4.0 H Urine Leukocytes Negative Urine RBC 6 Urine WBC 1 Urine Bacteria Occasional Urine Mucus Few Ur Culture Indicated? Ordered separately Blood Type Antibody Screen Crossmatch 11/20/16 11/21/16 11/21/16 23:50 00:15 04:06 WBC RBC Hgb Hct MCV MCH MCHC RDW Plt Count MPV Neut % (Auto) Lymph % (Auto) [place] % (Auto) Eos % (Auto) Baso % (Auto) Neut # (Auto) Lymph # (Auto) [place] # (Auto) Eos # (Auto) Baso # (Auto) Total Counted Immature Gran % Nucleated RBC % Immature Gran # Segmented Neutrophils Band Neutrophils Lymphocytes Monocytes Eosinophils Basophils Nucleated RBCs # Platelet Estimate Immature Plt Fraction Hypochromasia Anisocytosis Elliptocytes Sodium Potassium Chloride Carbon Dioxide Anion Gap BUN Creatinine GFR Calculation BUN/Creatinine Ratio Glucose 534 H* POC Glucose > 500 H* 403 H Hemoglobin A1c Calculated Osmolality Lactic Acid Calcium Magnesium Total Bilirubin AST ALT Alkaline Phosphatase B-Natriuretic Peptide Total Protein Albumin Globulin Albumin/Globulin Ratio Triglycerides Cholesterol LDL Cholesterol VLDL Cholesterol HDL Cholesterol Heart Disease Risk Ratio Urine Color Urine Appearance Urine pH Ur Specific [place] Urine Protein Urine Glucose (UA) Urine Ketones Urine Blood Urine Nitrate Urine Bilirubin Urine Urobilinogen Urine Leukocytes Urine RBC Urine WBC Urine Bacteria Urine Mucus Ur Culture Indicated? Blood Type Antibody Screen Crossmatch 11/21/16 11/21/16 11/21/16 05:01 05:09 05:09 WBC 7.2 RBC 2.37 L D Hgb 6.6 L D Hct 21.9 L MCV 92.4 MCH 28 MCHC 30.1 L RDW 16.9 Plt Count 199 D MPV 11.5 Neut % (Auto) 73.8 Lymph % (Auto) 13.1 L [place] % (Auto) 11.1 Eos % (Auto) 0.6 Baso % (Auto) 0.0 Neut # (Auto) 5.3 Lymph # (Auto) 0.9 L [place] # (Auto) 0.8 Eos # (Auto) 0.0 Baso # (Auto) 0.0 Total Counted 100 Immature Gran % 1.4 Nucleated RBC % 0.0 Immature Gran # 0.10 Segmented Neutrophils 71 Band Neutrophils 1 Lymphocytes 16 L Monocytes 11 Eosinophils Basophils 1.0 H Nucleated RBCs # 0.00 Platelet Estimate Normal Immature Plt Fraction 0.0 Hypochromasia Anisocytosis Elliptocytes Sodium 141 Potassium 4.2 Chloride 106 Carbon Dioxide 29 Anion Gap 10.2 BUN 7 Creatinine 0.50 L GFR Calculation 133 BUN/Creatinine Ratio 14.00 Glucose 323 H POC Glucose Hemoglobin A1c Calculated Osmolality 290.3 Lactic Acid Calcium 7.6 L Magnesium 1.9 Total Bilirubin AST ALT Alkaline Phosphatase B-Natriuretic Peptide Total Protein Albumin Globulin Albumin/Globulin Ratio Triglycerides 92 Cholesterol 83 LDL Cholesterol 47.0 VLDL Cholesterol 18.4 HDL Cholesterol 25 L Heart Disease Risk Ratio 3.32 Urine Color Urine Appearance Urine pH Ur Specific [place] Urine Protein Urine Glucose (UA) Urine Ketones Urine Blood Urine Nitrate Urine Bilirubin Urine Urobilinogen Urine Leukocytes Urine RBC Urine WBC Urine Bacteria Urine Mucus Ur Culture Indicated? Blood Type A POSITIVE Antibody Screen Negative Crossmatch See Detail 11/21/16 11/21/16 11/21/16 05:09 05:56 10:18 WBC RBC Hgb 7.1 L Hct MCV MCH MCHC RDW Plt Count MPV Neut % (Auto) Lymph % (Auto) [place] % (Auto) Eos % (Auto) Baso % (Auto) Neut # (Auto) Lymph # (Auto) [place] # (Auto) Eos # (Auto) Baso # (Auto) Total Counted Immature Gran % Nucleated RBC % Immature Gran # Segmented Neutrophils Band Neutrophils Lymphocytes Monocytes Eosinophils Basophils Nucleated RBCs # Platelet Estimate Immature Plt Fraction Hypochromasia Anisocytosis Elliptocytes Sodium Potassium Chloride Carbon Dioxide Anion Gap BUN Creatinine GFR Calculation BUN/Creatinine Ratio Glucose POC Glucose 368 H Hemoglobin A1c 10.7 H Calculated Osmolality Lactic Acid Calcium Magnesium Total Bilirubin AST ALT Alkaline Phosphatase B-Natriuretic Peptide Total Protein Albumin Globulin Albumin/Globulin Ratio Triglycerides Cholesterol LDL Cholesterol VLDL Cholesterol HDL Cholesterol Heart Disease Risk Ratio Urine Color Urine Appearance Urine pH Ur Specific [place] Urine Protein Urine Glucose (UA) Urine Ketones Urine Blood Urine Nitrate Urine Bilirubin Urine Urobilinogen Urine Leukocytes Urine RBC Urine WBC Urine Bacteria Urine Mucus Ur Culture Indicated? Blood Type Antibody Screen Crossmatch 11/21/16 11/21/16 11:12 Unknown WBC RBC Hgb Hct MCV MCH MCHC RDW Plt Count MPV Neut % (Auto) Lymph % (Auto) [place] % (Auto) Eos % (Auto) Baso % (Auto) Neut # (Auto) Lymph # (Auto) [place] # (Auto) Eos # (Auto) Baso # (Auto) Total Counted Immature Gran % Nucleated RBC % Immature Gran # Segmented Neutrophils Band Neutrophils Lymphocytes Monocytes Eosinophils Basophils Nucleated RBCs # Platelet Estimate Immature Plt Fraction Hypochromasia Anisocytosis Elliptocytes Sodium Potassium Chloride Carbon Dioxide Anion Gap BUN Creatinine GFR Calculation BUN/Creatinine Ratio Glucose POC Glucose 199 H Hemoglobin A1c Calculated Osmolality Lactic Acid Calcium Magnesium Total Bilirubin AST ALT Alkaline Phosphatase B-Natriuretic Peptide Total Protein Albumin Globulin Albumin/Globulin Ratio Triglycerides Cholesterol LDL Cholesterol VLDL Cholesterol HDL Cholesterol Heart Disease Risk Ratio Urine Color Urine Appearance Urine pH Ur Specific [place] Urine Protein Urine Glucose (UA) Urine Ketones Urine Blood Urine Nitrate Urine Bilirubin Urine Urobilinogen Urine Leukocytes Urine RBC Urine WBC Urine Bacteria Urine Mucus Ur Culture Indicated? Blood Type A POSITIVE Antibody Screen Crossmatch - Diagnostic Findings Procedure: Chest x-ray: report reviewed by me - EKG EKG results: interpreted by me EKG shows: sinus rhythm Quality Measures - VTE Contraindication to Pharmacological VTE Prophylaxis: Already on Theraputic Agent , No Prophylaxis Needed Specialty Discharge - Follow Up or Referrals Follow up with: Brice Messer MD [Physician] - Tana Cabrera Dale, MD, personally performed the services described in this documentation, ascribed by Shaina Rodriguez RN in my presence, and it is both accurate and complete .
[2016-11-22] MEDS: INSULIN REGULAR 100 UNIT/ML SUBCUT SCH ×4 (00:09→18:35)
[2016-11-22] MEDS: metroNIDAZOLE INJ 500 MG in PREMIX 1 EACH IV SCH ×4 (01:55→20:40)
[2016-11-22 06:28] LABS: Eosinophils # 0.1 10*3/uL (0.0-0.87); Eosinophils % 1.3 % (0.00-10.9); Hematocrit 29.6 VOL% (35.7-47.0); Hemoglobin 9.6 GM/DL (12.0-16.0); Immature Granulocytes % 1.3 %; Immature Granulocytes Absolute 0.06 #; Lymphocytes # 0.8 10*3/uL (1.4-4.0); Lymphocytes % 17.4 % (21.3-54.2); Mean Corpuscular HGB Conc 32.4 GM/DL (32-36); Mean Corpuscular Hemoglobin 30 PG (27-34); Mean Corpuscular Volume 91.6 FL (87-102); Mean Platelet Volume 11.4 FL (9.6-12.0); Monocytes # 0.4 10*3/uL (0.11-0.8); Monocytes % 9.3 % (1.7-12.7); Neutrophils # 3.3 10*3/uL (1.4-7.4); Neutrophils % 70.7 % (38.7-73.9); Platelet Count 207 T/CUMM (130-400); Red Cell Distribution Width 16.9 % (9.3-17.3)
[2016-11-22 06:33] LABS: Red Blood Count 3.23 MC/CUMM (3.8-5.5); White Blood Count 4.7 T/CUMM (4-12)
[2016-11-22 06:42] LABS: INR 1.1; PT Patient Result 11.2 SECS; Partial Thromboplastin Time 24.7 SECS (0-40)
[2016-11-22 06:54] LABS: Band Neutrophils 2 % (0-10); Eosinophils 3 % (0-10); Lymphocytes 15 % (20-55); Nucleated Red Blood Cells 1 (0-5); Segmented Neutrophils 68 % (50-85); Total Cells Counted 100
[2016-11-22 06:56] LABS: Albumin 1.4 G/DL (3.4-5.0); Bilirubin,Total 0.7 MG/DL (0.2-1.0); Hypochromasia 1+; Microcytosis 1+; Osmolality,Calculated 280.4 MOS/KG (273-304); Potassium 3.7 MMOL/L (3.5-5.1); Total Protein 5.5 G/DL (6.4-8.3)
[2016-11-22] MEDS ORDERED: SODIUM CHLORIDE 0.9% 250 ML IV PRN (07:21)
--- NOTE | 2016-11-22 07:34 | General Surgery Progress Note ---
Assessment and Plan - Time spent with patient Time spent with patient: Less than 30 minutes (1) Infected decubitus ulcer Status: Acute Assessment and plan: Impression: Decubitus ulcers of 1. Left hip unstageable 2. Left posterior thigh unstageable 3. Sacral unstageable 4. Right hip unstageable Plan: We will need to have patient off Xarelto about 3 days and then we could take to surgery for some further debridement. We will start local wound care at this time. 11/22/2016. Plans at this time is to take patient to surgery this afternoon for debridement of these ulcers. She will probably have to be under general anesthesia and will have to rotate her from side to side in order to do this. Family and patient understands this and agreeable to surgery at this time. They understand the risk complications. Hematocrit is 29 this morning after 2 units but will set up 2 units because of may need it for surgery. Certainly will see what cardiology has to say if they need to delay her surgery because of her heart we might be able to do that but certainly we need to get these wounds cleaned up so that we can reduce the stress on her system. Current Visit: Yes Qualifiers: Pressure ulcer stage: unstageable Qualified Code(s): L89.95 - Pressure ulcer of unspecified site, unstageable; L08.9 - Local infection of the skin and subcutaneous tissue, unspecified; L08.9 - Local infection of the skin and subcutaneous tissue, unspecified (2) Diabetes mellitus type 2 in nonobese Status: Chronic Assessment and plan: Impression: Diabetes type 2 Plan: Medical management Current Visit: No (3) Heart failure, systolic, due to idiopathic cardiomyopathy Status: Acute Assessment and plan: Impression: Cardiomyopathy etiology unknown Plan: Cardiology consult Current Visit: No Subjective Patient reports: Present: no new complaints, afebrile Exam - Constitutional Vitals: Period Temp Pulse Resp BP Sys/Contreras Pulse Ox Last 24 Hr 98.0 F-99.2 F 57-66 16-18 102-132/46-75 92-97 General appearance: mild distress - Head Head exam: Present: normal inspection - ENT ENT exam: Present: normal exam - Neck Neck exam: Present: normal inspection - Respiratory Respiratory exam: Present: rales - Cardiovascular Cardiovascular exam: Present: RRR - GI/Abdominal GI/Abdominal exam: Present: hypoactive bowel sounds, soft - Extremities Exam Extremities exam: Present: other (Multiple decubitus ulcer of both hips) - Back Exam Back exam: Present: normal inspection - Neurological Exam Neurological exam: Present: alert, oriented X3, CN II-XII intact - Skin Skin exam: Present: normal color, warm, dry Results - Labs CBC & BMP: 11/22/16 05:34 11/22/16 05:34 Lab Results: I have reviewed the past 24 hour labs Quality Measures - VTE Contraindication to Pharmacological VTE Prophylaxis: Already on Theraputic Agent , No Prophylaxis Needed Specialty Discharge - Follow Up or Referrals Follow up with: Brice Messer MD [Physician] -
[2016-11-22] MEDS ORDERED: SILVER SULFADIAZINE 1% CREAM 25 GM TUBE TOP SCH (09:00)
--- NOTE | 2016-11-22 13:08 | Hospitalist Progress Note ---
Assessment and Plan (1) Infected decubitus ulcer Status: Acute Assessment and plan: plan for debridement by Dr Jacobson today, Continue vancomycin, rocephin and Flagyl. Current Visit: Yes Qualifiers: Pressure ulcer stage: unstageable Qualified Code(s): L89.95 - Pressure ulcer of unspecified site, unstageable; L08.9 - Local infection of the skin and subcutaneous tissue, unspecified; L08.9 - Local infection of the skin and subcutaneous tissue, unspecified (2) History of pulmonary embolism Status: Chronic Assessment and plan: Venous Dopplers currently show no evidence of DVT, CT of the chest from June 2016 showed extensive pulmonary emboli in both pulmonary arteries extending in the upper and lower lobes. Hold Xarelto for surgery. Current Visit: No (3) Gait disorder Status: Acute Assessment and plan: Dr. Guerra doing nerve conduction study today,B12 is low and I will treat, head ct, cpk normal, aldolase pending. Current Visit: Yes (4) Atrial fibrillation Status: Acute Assessment and plan: continue amiodarone hold Xarelto for surgery. Current Visit: No (5) Diabetes mellitus Status: Chronic Assessment and plan: BS not controlled lantus increased to 20 units sq, cont Current Visit: Yes (6) Cardiomyopathy Status: Chronic Assessment and plan: Echocardiogram from June 2016 showed an EF of 20% with moderate left ventricular hypertrophy with diastolic dysfunction. PAP of 34 Current Visit: Yes (7) Acute blood loss anemia Status: Acute Assessment and plan: hgb 9.6, monitor after restarting xarelto. Current Visit: Yes Hospitalist: Subjective Interval history: Patient in good spirits today. Spoke with her daughter at bedside. Patient is in the process of getting her nerve conduction study by Dr. Guerra. Dr. Jacobson plans to take her to surgery day and debride her wounds Exam - Constitutional Vitals: Period Temp Pulse Resp BP Sys/Contreras Pulse Ox Last 24 Hr 97.4 F-99.2 F 57-66 16-20 102-143/48-76 92-98 Exam: Heart Rate-[RRR] Lungs-[CTAB] GI-[+bs soft, NT] Ext-[1+ edema] Neuro [Motor 4/5 bedridden, [alert and oriented times 3] psych [normal mood and flat affect] General [no acute distress] Skin not examined today Results - Labs CBC & BMP: 11/22/16 05:34 11/22/16 05:34 Lab Results: I have reviewed the past 24 hour labs Labs: Wound culture growing gram-negative rods in 2 types of gram-positive cocci, urine culture Klebsiella, blood cultures 2 negative no growth Quality Measures - VTE Contraindication to Pharmacological VTE Prophylaxis: Already on Theraputic Agent , No Prophylaxis Needed Specialty Discharge - Follow Up or Referrals Follow up with: Brice Messer MD [Physician] -
[2016-11-22] MEDS ORDERED: INSULIN GLARGINE 100 UNIT/ML SUBCUT SCH (13:18)
--- NOTE | 2016-11-22 14:50 | Neurology Progress Note ---
Neurology - PN : Subjective Interval history: Patient seems to be doing about the same. Nerve conduction study and EMG reveals severe peripheral neuropathy. B12 level is 75 and she is getting replacement now. Exam (Progress Note) - Constitutional Vitals: Period Temp Pulse Resp BP Sys/Contreras Pulse Ox Last 24 Hr 97.4 F-99.2 F 57-66 16-20 114-143/54-76 93-98 Exam: GENERAL: Patient is in no acute distress. NECK: Neck is supple. There is no JVD. No carotid bruits present. No thyroid masses. CVS: First and second heart sounds are normal. There is no S3 present. Regular rate and rhythm. RESPIRATORY: Lungs are clear to auscultation without any rales or rhonchi. ABDOMEN: Soft and non-tender. Bowel sounds are present. There is no hepatosplenomegaly. EXT: There is no palpable edema. Peripheral pulses are present. Skin: No rashes Central Nervous system: General: Alert, awake and Oriented x 3 Speech: Fluent Comprehension: Intact and normal Facial expressions: Normal Cranial Nerves: CN1/Olfactory: Normal CN II/ Optic: Normal, Visual [place] unreliable CN III, and : SHAJI & EOMI CN V: Normal & intact CN VII: face is symmetric CNVIII: Normal CN XI/X/XI/XII: Intact and Normal Motor: Bulk and Tone is normal. Strength in the lower extremities 2/5 Strength in the upper extremities 3-4/5 Sensory: Decreased for all the modalities of PP, LT and temp sense Reflexes: Absent and symmetrical Cerebellar function: Slow finger to nose testing. Toes: Equivocal Gait: Not tested Results - Labs CBC & BMP: 11/22/16 05:34 11/22/16 05:34 Assessment and Plan (1) Gait disorder Status: Acute Assessment and plan: Severe peripheral neuropathy could very well be secondary to B12 deficiency and diabetes. Start and continue B12 replacement PT and OT Current Visit: Yes Quality Measures - VTE Contraindication to Pharmacological VTE Prophylaxis: Already on Theraputic Agent , No Prophylaxis Needed Specialty Discharge - Follow Up or Referrals Follow up with: Brice Messer MD [Physician] -
[2016-11-22] MEDS ORDERED: METHYL SALICYLATE 60 ML BOTTLE TOP ONE (15:40)
[2016-11-22] MEDS: AMIODARONE 200 MG TABLET PO SCH ×2 (16:25→20:41)
[2016-11-22] MEDS: LOSARTAN 25 MG TABLET PO SCH (16:26)
[2016-11-22] MEDS: PANTOPRAZOLE 40 MG TABLET PO SCH (16:26)
[2016-11-22] MEDS: SODIUM HYPOCHLORITE 0.25% IRRIG 473 ML BOTTLE TOP SCH ×2 (16:26)
[2016-11-22] MEDS: MAGNESIUM OXIDE 400 MG TABLET PO SCH ×2 (16:26→20:41)
--- NOTE | 2016-11-22 17:51 | Operative Note ---
Date of procedure: 11/22/16 Pre-op diagnosis: Large decubitus ulcers multiple with extensive necrotic tissue Post-op diagnosis: same (Large stage IV decubitus ulcers with extensive necrotic tissue) Procedure: Operative note: Preoperative diagnosis: Large decubitus ulcers of both ischial areas left hip and sacrum Postop diagnosis: 1. Stage IV decubitus ulcer left hip 2. Stage IV decubitus ulcer left ischeal area 3. Stage IV decubitus ulcer right ischeal area 4. Left buttocks ulcer stage III 5. Stage III sacral decubitus ulcer Procedure: 1. Excisional debridement of skin subtenons tissue muscle of the left hip ulcer 2. Excisional debridement of skin subtenons tissue muscle of the left issue him 3. Excisional debridement of skin subtenons tissue muscle right issue 4. Tangential debridement of skin subcutaneous tissue left buttock 5. Debridement subtenons tissue sacrum Surgeon Dr. Jacobson Education Rep Char Hernadez, [employer] COORDINATOR ACNP Anesthesia general endotracheal. Brief history. 71-year-old black female who is become bedridden and has not found to the doctor until she had this weakness decrease in blood pressure and low hematocrit and foul odor. She came in with large ulcers in multiple areas including both hips both ischial areas and sacrum. Because of the necrotic tissue that was present we had her off the Xarelto a couple days like to bring her surgery at this time for some debridement to try to get process under control. Procedure: With patient in the right decubitus position prepped and draped in sterile fashion timeout and antibiotics completed we approach this area of the wounds themselves. The pre-debridement right ischial was 7 x 3.5 x 0 cm the left ischial was 6 x 6 x 0 cm sacral ulcer was 1.5 x 1 x 0.2 cm left buttocks was 4 cm x 3 x 0 cm left hip was 12 x 9 x 0 cm. At this point we started with the left hip where we begin to debride skin and subcutaneous tissue with a knife initially tangentially and care got into deeper necrotic tissue to get down the fatty tissue. We debrided that necrotic fatty tissue away down to the muscle which would begin to debride some muscle down to this area we did not exposed bone we got into the bursa over top of the bone with some purulent drainage that we cultured aerobically and anaerobically. We did as much as we could safely do at this point time getting as much and is clean as we could then use light cauterization controlling bleeding. At this point we have a wound that is 12 x 14 x 3.9 cm in size. We next moved to the right ischial ulcer where we debrided this skin subcutaneous tissue getting in the deep necrotic subcutaneous tissue as we debrided this down we got down to muscle in this particular area debrided across his plane of muscle in that area to get into a deep plane to get as much of the necrotic tissues we could get out. We debrided muscle subtenons tissue skin down this area but we did not exposed bone. At that point once we had a clean use light cauterization controlling bleeding. It now measures 9 x 6 x 3 cm in size. At this point the left ischial ulcer at which point we begin to debride a large amount of necrotic tissue that was present entering deep purulent material that we cultured aerobically and anaerobically. I excised around this ulcer and removed a good bit of deep necrotic skin and subcutaneous tissue to get down the deep cavity with necrotic tissue debriding this necrotic fat and some muscle in this deep area. We have a pocket that carried this down to the ischial area debriding that deep subtenons tissue did not exposed bone at this point but got close to it at this time. We had a good bit of bleeding here we got control with electrocauterization. We debrided this muscle and then necrotic subtenons tissue and skin and now we have a wound that is 10 x 9 x 5 cm in size. At that point we did a small debridement of the sacral decubitus ulcer just cleaning up the base of it of subcutaneous tissue. It still measures 1.5 x 1 x 0.5 cm in size. Next we went ahead and begin to debride this ulcer on the left buttocks just a tangential on the subtenons tissue and fatty granulating tissue. We were able to debride this down flat and now have a wound that is 4 x 3 x 0.2 cm in size. Once this was done we packed everything with Dakin's with fluffs and Kerlix is at this time to order to get things under control. Took the patient to recovery room. Estimated blood loss was 60 cc Sponge count correct 2 Drains none Complications none Condition stable satisfactory Anesthesia: BEA, local Surgeon / Physician: Ricardo Jacobson Education Rep: Char Hernadez Estimated blood loss: other (60 cc) Specimens: other (Tissue for culture) Condition: other (Guarded) Disposition: floor Results - Labs CBC & BMP: 11/22/16 05:34 11/22/16 05:34 Discharge Plan - Discharge Medications No Action Metoprolol Tartrate Tab [Lopressor Tab] 50 mg PO BID Losartan [Cozaar] 25 mg PO DAILY #30 caplet Magnesium Oxide 400 mg PO BID #60 caplet Rivaroxaban [Xarelto] 15 mg PO BID W/MEALS #29 tablet Azithromycin [Azithromycin Z Pack] 250 mg PO DIRECTED #1 packet HYDROcodone/ACETAMIN 5-325 [[place] 5-325] 1 tablet PO Q6H PRN #14 tablet PRN Reason: knee pain Amiodarone Tab [Cordarone Tab] 200 mg PO BID - Follow Up or Referral Follow Up: Brice Messer MD [Physician] - - Forms/Instructions
[2016-11-22 18:21] LABS: Hematocrit 36.2 VOL% (35.7-47.0); Hemoglobin 11.5 GM/DL (12.0-16.0)
[2016-11-22] MEDS: CYANOCOBALAMIN 1000 MCG/1 ML VIAL SUBCUT SCH (18:35)
[2016-11-22] MEDS: VANCOMYCIN INJ 1,500 MG in SODIUM CHLORIDE 0.9% 500 ML IV SCH (18:35)
[2016-11-22] MEDS: SODIUM CHLORIDE 0.9% 1,000 ML IV SCH (18:36)
--- NOTE | 2016-11-22 21:19 | Cardiology Progress Note ---
I, Shaina Rodriguez RN, am scribing for, and in the presence of, Ortega Fajardo MD 21:19. Assessment and Plan (1) Cardiomyopathy Status: Chronic Assessment and plan: Initial assessment and plan November 21, 2016: Xarelto is on hold in anticipation of surgery Try to have her off the Xarelto as short as is possible to reduce her risk of having a stroke. She has multiple risk factors for stroke Restart amiodarone unless you know the reason not to Check EKG in the a.m. I will follow along with you. Assessment and plan November 22, 2016: No chest pain or shortness breath To have debridement of wounds today I discussed with the patient and would restart the Xarelto after the surgery, possibly tomorrow I'll continue to follow closely postop, Watch for any signs or symptoms of bleeding. Current Visit: Yes (2) Paroxysmal atrial fibrillation Status: Chronic Current Visit: No (3) History of pulmonary embolism Status: Chronic Current Visit: No (4) Diabetes mellitus Status: Chronic Current Visit: Yes (5) Hypertension Status: Chronic Current Visit: Yes Cardiology - PN: Subj Interval history: Environmental Services Specialist: Dr. Messer PCP: Dr. Carpio Summary: Ms. Ricketts is a 71 year old female who is routinely followed by Dr. Messer with a history of pulmonary embolism, diabetes, paroxysmal edge fibrillation, and cardiomyopathy. She is chronically anticoagulated on Xarelto. She is on amiodarone for rate control. Echocardiogram done June 29, 2016 with ejection fraction of 20%. History includes brother with hypertension diabetes. She reports is a lifetime non-smoker. She tells me she came to the emergency department for evaluation November 20 because she became weak. The note from the ED indicates she came in because of increased swelling and open wounds to her thighs. She denied any chest pain, shortness of breath, palpitations, or dizziness. She has been started on IV antibiotics and her Xarelto has not been restarted. H&H this morning was 6.6 and 21.9. She was transfused 2 units of red blood cells she tells me she has had a problem with anemia in the past. Venous Doppler was negative for DVT bilateral lower extremities. No acute cardiopulmonary findings were found on the chest x-ray. November 22, 2016: Mr. Anglin is seen resting in bed. She denies any chest pain, shortness of breath, palpitations, or dizziness. After blood transfusion yesterday, her H&H is improved to 9.6 and 29.6. She states she does feel much better. According to Dr. Jacobson's note he plans to take her to surgery this afternoon to debride her wounds. She has been off Xarelto for this. Review of systems: Cardiovascular: She denies any chest pain. Respiratory: She denies any shortness of breath or cough. Neurological: Awake and alert. Exam (Progress Note) - Constitutional Vitals: Period Temp Pulse Resp BP Sys/Contreras Pulse Ox Last 24 Hr 97.4 F-99.2 F 57-66 16-20 102-134/48-75 92-97 General appearance: no acute distress, over weight - Head Head exam: Absent: abrasion, hematoma - Eye Eye exam: Absent: periorbital swelling, laceration to eyelids Pupils: Present: SHAJI - Respiratory Respiratory exam: Present: clear to auscultation bilaterally. Absent: accessory muscle use, chest wall tenderness - Cardiovascular Cardiovascular exam: Present: regular rate and rhythm. Absent: systolic murmur - GI/Abdominal GI/Abdominal exam: Present: normal bowel sounds, soft. Absent: distended, tenderness - Extremities Exam Extremities exam: Present: normal capillary refill, edema (1+ to bilateral lower extremities) - Neurological Exam Neurological exam: Present: alert, oriented X3 - Psychiatric Psychiatric exam: Present: normal affect, normal mood - Skin Skin exam: Present: warm, dry Result/EKG - Labs CBC & BMP: 11/22/16 18:10 11/22/16 05:34 Lab Results: I have reviewed the past 24 hour labs Labs: Laboratory Results - last 24 hr 11/21/16 11/21/16 11/21/16 05:01 10:18 11:12 WBC RBC Hgb 7.1 L Hct MCV MCH MCHC RDW Plt Count MPV Neut % (Auto) Lymph % (Auto) [place] % (Auto) Eos % (Auto) Baso % (Auto) Neut # (Auto) Lymph # (Auto) [place] # (Auto) Eos # (Auto) Baso # (Auto) Total Counted Immature Gran % Nucleated RBC % Immature Gran # Segmented Neutrophils Band Neutrophils Lymphocytes Monocytes Eosinophils Nucleated RBCs Nucleated RBCs # Immature Plt Fraction Hypochromasia Microcytosis Morphology Comment INR PT Patient/Control Mix Circ Anticoag PTT Sodium Potassium Chloride Carbon Dioxide Anion Gap BUN Creatinine GFR Calculation BUN/Creatinine Ratio Glucose POC Glucose 199 H Calculated Osmolality Calcium Total Bilirubin AST ALT Alkaline Phosphatase Total Creatine Kinase Total Protein Albumin Globulin Albumin/Globulin Ratio Vitamin B12 Folate Free T4 TSH 3rd Generation Blood Type A POSITIVE Antibody Screen Negative Crossmatch See Detail Blood Bank Comment 11/21/16 11/21/16 11/21/16 16:15 16:15 16:15 WBC RBC Hgb Hct MCV MCH MCHC RDW Plt Count MPV Neut % (Auto) Lymph % (Auto) [place] % (Auto) Eos % (Auto) Baso % (Auto) Neut # (Auto) Lymph # (Auto) [place] # (Auto) Eos # (Auto) Baso # (Auto) Total Counted Immature Gran % Nucleated RBC % Immature Gran # Segmented Neutrophils Band Neutrophils Lymphocytes Monocytes Eosinophils Nucleated RBCs Nucleated RBCs # Immature Plt Fraction Hypochromasia Microcytosis Morphology Comment INR 1.2 PT Patient/Control Mix 12.1 Circ Anticoag PTT 32.1 D Sodium Potassium Chloride Carbon Dioxide Anion Gap BUN Creatinine GFR Calculation BUN/Creatinine Ratio Glucose POC Glucose Calculated Osmolality Calcium Total Bilirubin AST ALT Alkaline Phosphatase Total Creatine Kinase 155 Total Protein Albumin Globulin Albumin/Globulin Ratio Vitamin B12 72 L Folate 16.4 Free T4 1.15 TSH 3rd Generation 2.720 Blood Type Antibody Screen Crossmatch Blood Bank Comment 11/21/16 11/21/16 11/21/16 16:53 20:39 Unknown WBC RBC Hgb 9.2 L D Hct 29.2 L MCV MCH MCHC RDW Plt Count MPV Neut % (Auto) Lymph % (Auto) [place] % (Auto) Eos % (Auto) Baso % (Auto) Neut # (Auto) Lymph # (Auto) [place] # (Auto) Eos # (Auto) Baso # (Auto) Total Counted Immature Gran % Nucleated RBC % Immature Gran # Segmented Neutrophils Band Neutrophils Lymphocytes Monocytes Eosinophils Nucleated RBCs Nucleated RBCs # Immature Plt Fraction Hypochromasia Microcytosis Morphology Comment INR PT Patient/Control Mix Circ Anticoag PTT Sodium Potassium Chloride Carbon Dioxide Anion Gap BUN Creatinine GFR Calculation BUN/Creatinine Ratio Glucose POC Glucose 195 H Calculated Osmolality Calcium Total Bilirubin AST ALT Alkaline Phosphatase Total Creatine Kinase Total Protein Albumin Globulin Albumin/Globulin Ratio Vitamin B12 Folate Free T4 TSH 3rd Generation Blood Type A POSITIVE Antibody Screen Crossmatch Blood Bank Comment 11/22/16 11/22/16 11/22/16 00:03 05:31 05:34 WBC 4.7 D RBC 3.23 L D Hgb 9.6 L Hct 29.6 L MCV 91.6 MCH 30 MCHC 32.4 RDW 16.9 Plt Count 207 MPV 11.4 Neut % (Auto) 70.7 Lymph % (Auto) 17.4 L [place] % (Auto) 9.3 Eos % (Auto) 1.3 Baso % (Auto) 0.0 Neut # (Auto) 3.3 Lymph # (Auto) 0.8 L [place] # (Auto) 0.4 Eos # (Auto) 0.1 Baso # (Auto) 0.0 Total Counted 100 Immature Gran % 1.3 Nucleated RBC % 0.0 Immature Gran # 0.06 Segmented Neutrophils 68 Band Neutrophils 2 Lymphocytes 15 L Monocytes 12 Eosinophils 3 Nucleated RBCs 1 Nucleated RBCs # 0.00 Immature Plt Fraction 0.0 Hypochromasia 1+ Microcytosis 1+ Morphology Comment INR PT Patient/Control Mix Circ Anticoag PTT Sodium Potassium Chloride Carbon Dioxide Anion Gap BUN Creatinine GFR Calculation BUN/Creatinine Ratio Glucose POC Glucose 328 H Calculated Osmolality Calcium Total Bilirubin AST ALT Alkaline Phosphatase Total Creatine Kinase Total Protein Albumin Globulin Albumin/Globulin Ratio Vitamin B12 Folate Free T4 TSH 3rd Generation Blood Type Cancelled Antibody Screen Cancelled Crossmatch See Detail Blood Bank Comment Cancelled 11/22/16 11/22/16 11/22/16 05:34 05:34 05:44 WBC RBC Hgb Hct MCV MCH MCHC RDW Plt Count MPV Neut % (Auto) Lymph % (Auto) [place] % (Auto) Eos % (Auto) Baso % (Auto) Neut # (Auto) Lymph # (Auto) [place] # (Auto) Eos # (Auto) Baso # (Auto) Total Counted Immature Gran % Nucleated RBC % Immature Gran # Segmented Neutrophils Band Neutrophils Lymphocytes Monocytes Eosinophils Nucleated RBCs Nucleated RBCs # Immature Plt Fraction Hypochromasia Microcytosis Morphology Comment INR 1.1 PT Patient/Control Mix 11.2 Circ Anticoag PTT 24.7 D Sodium 140 Potassium 3.7 Chloride 104 Carbon Dioxide 28 Anion Gap 11.7 BUN 6 L Creatinine 0.40 L GFR Calculation 145 BUN/Creatinine Ratio 15.00 Glucose 176 H POC Glucose 203 H Calculated Osmolality 280.4 Calcium 8.0 L Total Bilirubin 0.70 AST 15 ALT 10 L Alkaline Phosphatase 68 Total Creatine Kinase Total Protein 5.5 L Albumin 1.4 L Globulin 4.1 H Albumin/Globulin Ratio 0.3 L Vitamin B12 Folate Free T4 TSH 3rd Generation Blood Type Antibody Screen Crossmatch Blood Bank Comment - Diagnostic Findings Procedure: Chest x-ray: report reviewed by me - EKG EKG results: interpreted by me EKG shows: sinus rhythm Quality Measures - VTE Contraindication to Pharmacological VTE Prophylaxis: Already on Theraputic Agent , No Prophylaxis Needed Specialty Discharge - Follow Up or Referrals Follow up with: Brice Messer MD [Physician] - Tana Cabrera Dale, MD, personally performed the services described in this documentation, ascribed by Shaina Rodriguez RN in my presence, and it is both accurate and complete .
[2016-11-22 23:02] LABS: Hematocrit 30.8 VOL% (35.7-47.0); Hemoglobin 9.9 GM/DL (12.0-16.0)
--- NOTE | 2016-11-22 23:31 | Anesthesia Post-Op ---
Anesthesia Post OP - Post Ansesthetic Evaluation Patient seen in post op: Yes Resp: within normal limits CV: within normal limits Mental: within normal limits Temp: within normal limits [id number]: within normal limits Nausea and Vomiting: within normal limits Pain: within normal limits
[2016-11-22] MEDS ORDERED: fentaNYL 100 MCG/2 ML VIAL ONE (23:39)
[2016-11-23] MEDS: CLINDAMYCIN INJ 900 MG in PREMIX 1 EACH IV SCH ×2 (00:15→08:03)
[2016-11-23] MEDS: INSULIN REGULAR 100 UNIT/ML SUBCUT SCH ×7 (00:26→20:41)
[2016-11-23] MEDS: metroNIDAZOLE INJ 500 MG in PREMIX 1 EACH IV SCH ×3 (01:48→20:39)
--- NOTE | 2016-11-23 06:49 | CT Report ---
History short of breath with history of PE Comparison 06/28/2016 80 cc Omni 350 utilized. Axial images obtained with 2-D multiplanar reconstruction images also stored and interpreted The mediastinum is now shifted to the right. The heart is enlarged. Prior pulmonary emboli no longer seen. No pulmonary emboli seen on the current study. The Tiny amount of fluid in the superior pericardial recess present There are tiny bilateral pleural effusions IVC filter partially visualized. The cyst at the upper pole the left kidney again seen mild increased density in the dependent gallbladder noted Large lytic lesion replacing the most vertebral body in the lower thoracic spine again seen. There has been development of moderate. Consolidation in the right lower lobe with air bronchograms incomplete volume loss. There is debris in the orifice of the right mainstem bronchus not seen on the prior study. Impression: 1. No evidence of pulmonary embolus seen 2. Interval development of the right lower lobe consolidation with component of volume loss 3. A tiny bilateral pleural effusions 4. cardiomegaly 5. Large lytic lesion in the lower thoracic vertebral body again seen consistent with metastatic disease or myeloma 6. sludge versus small stones in the visualized gallbladder The CT exam was performed using one or more of the following dose reduction techniques: Automated exposure control, adjustment of the mA and/or kV according to patient size, or use of iterative reconstruction technique. PROCEDURE INTERPRETED AT [facility] DEPARTMENT OF RADIOLOGY Final Report Signed by: Dr. Albania Schumacher
--- NOTE | 2016-11-23 06:50 | CT Report ---
History is gait disorder. There is mild diffuse atrophy No acute intracranial hemorrhage, mass effect, or evidence of acute cortical stroke is seen Impression: Mild diffuse atrophy The CT exam was performed using one or more of the following dose reduction techniques: Automated exposure control, adjustment of the mA and/or kV according to patient size, or use of iterative reconstruction technique. PROCEDURE INTERPRETED AT [facility] DEPARTMENT OF RADIOLOGY Final Report Signed by: Dr. Albania Schumacher
[2016-11-23] MEDS: SODIUM CHLORIDE 0.9% 1,000 ML IV SCH ×3 (07:24→13:37)
[2016-11-23] MEDS: MAGNESIUM OXIDE 400 MG TABLET PO SCH ×2 (08:03→20:38)
[2016-11-23] MEDS: AMIODARONE 200 MG TABLET PO SCH (08:03)
[2016-11-23] MEDS: LOSARTAN 25 MG TABLET PO SCH (08:03)
[2016-11-23] MEDS: PANTOPRAZOLE 40 MG TABLET PO SCH (08:03)
[2016-11-23 09:39] LABS: Basophils % 0.1 % (0.0-0.8); Eosinophils % 0.6 % (0.00-10.9); Hematocrit 30.6 VOL% (35.7-47.0); Hemoglobin 9.7 GM/DL (12.0-16.0); Immature Granulocytes Absolute 0.07 #; Lymphocytes # 0.8 10*3/uL (1.4-4.0); Lymphocytes % 10.7 % (21.3-54.2); Mean Corpuscular HGB Conc 31.7 GM/DL (32-36); Mean Corpuscular Hemoglobin 29 PG (27-34); Mean Corpuscular Volume 91.3 FL (87-102); Mean Platelet Volume 10.5 FL (9.6-12.0); Monocytes # 0.4 10*3/uL (0.11-0.8); Monocytes % 5.7 % (1.7-12.7); Neutrophils # 5.9 10*3/uL (1.4-7.4); Neutrophils % 81.9 % (38.7-73.9); Platelet Count 278 T/CUMM (130-400); Red Blood Count 3.35 MC/CUMM (3.8-5.5); Red Cell Distribution Width 16.8 % (9.3-17.3); White Blood Count 7.2 T/CUMM (4-12)
[2016-11-23 10:02] LABS: Calcium 7.2 MG/DL (8.5-10.1); Osmolality,Calculated 277.7 MOS/KG (273-304); Potassium 3.8 MMOL/L (3.5-5.1)
[2016-11-23 10:12] LABS: Band Neutrophils 1 % (0-10); Eosinophils 1 % (0-10); Lymphocytes 14 % (20-55); Segmented Neutrophils 81 % (50-85); Total Cells Counted 100
[2016-11-23 10:13] LABS: Hypochromasia 1+
[2016-11-23] MEDS: SODIUM HYPOCHLORITE 0.25% IRRIG 473 ML BOTTLE TOP SCH ×2 (10:13→10:14)
[2016-11-23 10:14] LABS: Microcytosis 1+
[2016-11-23 10:15] LABS: Giant Platelets Few; Ovalocytes Slight
[2016-11-23] MEDS: CYANOCOBALAMIN 1000 MCG/1 ML VIAL SUBCUT SCH (10:51)
[2016-11-23] MEDS: ENOXAPARIN 40 MG/0.4 ML SYRINGE SUBCUT SCH (10:52)
[2016-11-23] MEDS: SILVER SULFADIAZINE 1% CREAM 400 GM JAR TOP SCH (12:15)
[2016-11-23] MEDS: VANCOMYCIN INJ 1,500 MG in SODIUM CHLORIDE 0.9% 500 ML IV SCH (12:21)
[2016-11-23] MEDS ORDERED: SKIN HEALING OINT (AQUAPHOR) 50 GM TUBE TOP PRN (13:16)
--- NOTE | 2016-11-23 14:08 | Hospitalist Progress Note ---
Assessment and Plan (1) Infected decubitus ulcer Status: Acute Assessment and plan: s/p debridement, Continue vancomycin, rocephin and Flagyl. Await culture results. Needs IV antibiotics and wound care to [facility] or specialty. Current Visit: Yes Qualifiers: Pressure ulcer stage: unstageable Qualified Code(s): L89.95 - Pressure ulcer of unspecified site, unstageable; L08.9 - Local infection of the skin and subcutaneous tissue, unspecified; L08.9 - Local infection of the skin and subcutaneous tissue, unspecified (2) History of pulmonary embolism Status: Chronic Assessment and plan: Chest CT and venous Dopplers negative for PE or DVT at this time we will do DVT prophylaxis Lovenox only Current Visit: No (3) Gait disorder Status: Acute Assessment and plan: Nerve conduction study shows peripheral neuropathy most likely due to diabetes. Patient also has severe B12 deficiency and is receiving injections. Current Visit: Yes (4) Atrial fibrillation Status: Acute Assessment and plan: Currently in sinus rhythm, continue amiodarone Current Visit: No (5) Diabetes mellitus Status: Inactive Assessment and plan: BS not controlled lantus increased to 27 units sq, cont mealtime coverage Current Visit: Yes (6) Cardiomyopathy Status: Chronic Assessment and plan: Echocardiogram from June 2016 showed an EF of 20% with moderate left ventricular hypertrophy with diastolic dysfunction. PAP of 34, restart Lasix Current Visit: Yes (7) Acute blood loss anemia Status: Acute Assessment and plan: hgb stable for now Current Visit: Yes Hospitalist: Subjective Interval history: She will need surgical debridement in the future. Her wounds are now deep as aggressive debridement was needed. We will try for [facility] versus specialty for IV antibiotics and extensive wound care and physical therapy. Patient indicates she wants her information Confidential and only discussed with her granddaughter. No other family member is to know about her medical history. Exam - Constitutional Vitals: Period Temp Pulse Resp BP Sys/Contreras Pulse Ox Last 24 Hr 97.1 F-98.4 F 61-84 16-20 121-168/59-89 96-100 Exam: Heart Rate-[RRR] Lungs-[CTAB] GI-[+bs soft, NT] Ext-trace edema] Neuro [Motor 4/5 bedridden, [alert and oriented times 3] psych [normal mood and flat affect] General [no acute distress] Skin not examined today Results - Labs CBC & BMP: 11/23/16 09:09 11/23/16 09:09 Lab Results: I have reviewed the past 24 hour labs Labs: Tissue cultures from surgery growing gram-positive cocci, urine culture growing Klebsiella, blood cultures 2 negative no growth - Diagnostic Findings Procedure: CT - chest: report reviewed by me (No evidence of pulmonary emboli) Quality Measures - VTE Contraindication to Pharmacological VTE Prophylaxis: Already on Theraputic Agent , No Prophylaxis Needed Specialty Discharge - Follow Up or Referrals Follow up with: Brice Messer MD [Physician] -
--- NOTE | 2016-11-23 14:47 | Neurology Progress Note ---
Neurology - PN : Subjective Interval history: Patient seems to be doing okay. No new problems reported. Still weak in the lower extremities. Exam (Progress Note) - Constitutional Vitals: Period Temp Pulse Resp BP Sys/Contreras Pulse Ox Last 24 Hr 97.1 F-98.4 F 61-84 16-20 121-168/59-89 96-100 Exam: GENERAL: Patient is in no acute distress. NECK: Neck is supple. There is no JVD. No carotid bruits present. No thyroid masses. CVS: First and second heart sounds are normal. There is no S3 present. Regular rate and rhythm. RESPIRATORY: Lungs are clear to auscultation without any rales or rhonchi. ABDOMEN: Soft and non-tender. Bowel sounds are present. There is no hepatosplenomegaly. EXT: There is no palpable edema. Peripheral pulses are present. Skin: No rashes Central Nervous system: General: Alert, awake and Oriented x 3 Speech: Fluent Comprehension: Intact and normal Facial expressions: Normal Cranial Nerves: CN1/Olfactory: Normal CN II/ Optic: Normal, Visual [place] unreliable CN III, and : SHAJI & EOMI CN V: Normal & intact CN VII: face is symmetric CNVIII: Normal CN XI/X/XI/XII: Intact and Normal Motor: Bulk and Tone is normal. Strength in the lower extremities 2/5 Strength in the upper extremities 3-4/5 Sensory: Decreased for all the modalities of PP, LT and temp sense Reflexes: Absent and symmetrical Cerebellar function: Slow finger to nose testing. Toes: Equivocal Gait: Not tested Results - Labs CBC & BMP: 11/23/16 09:09 11/23/16 09:09 Assessment and Plan (1) Gait disorder Status: Acute Assessment and plan: Severe peripheral neuropathy could very well be secondary to B12 deficiency and diabetes. Continue B12 replacement Continue PT and OT Consider swing bed placement Current Visit: Yes Quality Measures - VTE Contraindication to Pharmacological VTE Prophylaxis: Already on Theraputic Agent , No Prophylaxis Needed Specialty Discharge - Follow Up or Referrals Follow up with: Brice Messer MD [Physician] -
[2016-11-23] MEDS ORDERED: ROCURONIUM 100 MG/10 ML VIAL IV ONE (15:32)
[2016-11-23] MEDS ORDERED: LIDOCAINE 2% 5 ML VIAL ONE (15:32)
[2016-11-23] MEDS ORDERED: ETOMIDATE 20 MG/10 ML VIAL IV ONE (15:32)
[2016-11-23] MEDS: POTASSIUM CHLORIDE 10 MEQ TABLET PO SCH (15:34)
[2016-11-23] MEDS: FUROSEMIDE 20 MG/2 ML VIAL IV SCH (15:34)
[2016-11-23] MEDS: INSULIN GLARGINE 100 UNIT/ML SUBCUT SCH (20:39)
[2016-11-24] MEDS: AMIODARONE 200 MG TABLET PO SCH ×3 (00:23→21:40)
[2016-11-24] MEDS: metroNIDAZOLE INJ 500 MG in PREMIX 1 EACH IV SCH ×4 (02:17→17:07)
[2016-11-24] MEDS: SODIUM CHLORIDE 0.9% 1,000 ML IV SCH ×2 (02:17→10:45)
[2016-11-24] MEDS: VANCOMYCIN INJ 1,500 MG in SODIUM CHLORIDE 0.9% 500 ML IV SCH (05:44)
[2016-11-24 06:22] LABS: Calcium 6.7 MG/DL (8.5-10.1); Osmolality,Calculated 277.5 MOS/KG (273-304); Potassium 3.4 MMOL/L (3.5-5.1)
[2016-11-24 06:48] LABS: Basophils % 0.2 % (0.0-0.8); Eosinophils # 0.1 10*3/uL (0.0-0.87); Eosinophils % 1.3 % (0.00-10.9); Hemoglobin 8.7 GM/DL (12.0-16.0); Immature Granulocytes % 1.3 %; Immature Granulocytes Absolute 0.07 #; Lymphocytes # 0.8 10*3/uL (1.4-4.0); Mean Corpuscular HGB Conc 32.2 GM/DL (32-36); Mean Corpuscular Hemoglobin 29 PG (27-34); Mean Corpuscular Volume 90.3 FL (87-102); Mean Platelet Volume 9.8 FL (9.6-12.0); Monocytes # 0.5 10*3/uL (0.11-0.8); Monocytes % 8.8 % (1.7-12.7); Neutrophils # 3.9 10*3/uL (1.4-7.4); Neutrophils % 73.4 % (38.7-73.9); Platelet Count 222 T/CUMM (130-400); Red Blood Count 2.99 MC/CUMM (3.8-5.5); Red Cell Distribution Width 16.8 % (9.3-17.3); White Blood Count 5.3 T/CUMM (4-12)
[2016-11-24] MEDS: FUROSEMIDE 20 MG/2 ML VIAL IV SCH (08:09)
[2016-11-24] MEDS: INSULIN REGULAR 100 UNIT/ML SUBCUT SCH ×8 (08:09→21:41)
[2016-11-24] MEDS: ENOXAPARIN 40 MG/0.4 ML SYRINGE SUBCUT SCH ×2 (08:09→10:46)
[2016-11-24] MEDS: CYANOCOBALAMIN 1000 MCG/1 ML VIAL SUBCUT SCH (08:09)
[2016-11-24] MEDS: PANTOPRAZOLE 40 MG TABLET PO SCH (08:10)
[2016-11-24] MEDS: LOSARTAN 25 MG TABLET PO SCH (08:10)
[2016-11-24] MEDS: MAGNESIUM OXIDE 400 MG TABLET PO SCH ×2 (08:10→21:41)
[2016-11-24] MEDS: POTASSIUM CHLORIDE 10 MEQ TABLET PO SCH (08:10)
[2016-11-24] MEDS: SILVER SULFADIAZINE 1% CREAM 400 GM JAR TOP SCH (09:02)
[2016-11-24] MEDS ORDERED: TUBERCULIN SKIN TEST 0.1 ML SYRINGE INTRADERM ONE (12:00)
[2016-11-24 12:04] LABS: Albumin (SPE) 1.6 G/DL (3.2-5.3); Albumin (SPE) Rel % 32.7 %; Alpha 1 (SPE) 0.3 G/DL (0.1-0.4); Alpha 1 (SPE) Rel % 6.5 %; Alpha 2 (SPE) 0.7 G/DL (0.4-1.0); Total Protein (Chem) 4.8 G/DL (6.4-8.3)
[2016-11-24 12:05] LABS: Alpha 2 (SPE) Rel % 14.3 %; Beta (SPE) 0.5 G/DL (0.5-1.1); Beta (SPE) Rel % 11.5 %; Gamma (SPE) 1.7 G/DL (0.7-1.7)
--- NOTE | 2016-11-24 14:21 | Cardiology Progress Note ---
I, Shaina Rodriguez RN, am scribing for, and in the presence of, Ortega Fajardo MD 14:21. Assessment and Plan (1) Cardiomyopathy Status: Chronic Assessment and plan: Initial assessment and plan November 21, 2016: Xarelto is on hold in anticipation of surgery Try to have her off the Xarelto as short as is possible to reduce her risk of having a stroke. She has multiple risk factors for stroke Restart amiodarone unless you know the reason not to Check EKG in the a.m. I will follow along with you. Assessment and plan November 22, 2016: No chest pain or shortness breath To have debridement of wounds today I discussed with the patient and would restart the Xarelto after the surgery, possibly tomorrow I'll continue to follow closely postop, Watch for any signs or symptoms of bleeding. Assessment and plan November 23, 2016: No chest pain or shortness. Recovering from debridement surgery Will start anticoagulation when Dr. Jacobson says so, if it is not already been started There is a question of of a metastatic vertebral lesion on CT Continue support Current Visit: Yes (2) Paroxysmal atrial fibrillation Status: Chronic Current Visit: No (3) History of pulmonary embolism Status: Chronic Current Visit: No (4) Diabetes mellitus Status: Inactive Current Visit: Yes (5) Hypertension Status: Chronic Current Visit: Yes Cardiology - PN: Subj Interval history: Instrumentation And Controls Technician: Dr. Messer PCP: Dr. Carpio Summary: Ms. Ricketts is a 71 year old female who is routinely followed by Dr. Messer with a history of pulmonary embolism, diabetes, paroxysmal edge fibrillation, and cardiomyopathy. She is chronically anticoagulated on Xarelto. She is on amiodarone for rate control. Echocardiogram done June 29, 2016 with ejection fraction of 20%. History includes brother with hypertension diabetes. She reports is a lifetime non-smoker. She tells me she came to the emergency department for evaluation November 20 because she became weak. The note from the ED indicates she came in because of increased swelling and open wounds to her thighs. She denied any chest pain, shortness of breath, palpitations, or dizziness. She has been started on IV antibiotics and her Xarelto has not been restarted. H&H this morning was 6.6 and 21.9. She was transfused 2 units of red blood cells she tells me she has had a problem with anemia in the past. Venous Doppler was negative for DVT bilateral lower extremities. No acute cardiopulmonary findings were found on the chest x-ray. November 22, 2016: Ms. Ricketts is seen resting in bed. She denies any chest pain, shortness of breath, palpitations, or dizziness. After blood transfusion yesterday, her H&H is improved to 9.6 and 29.6. She states she does feel much better. According to Dr. Jacobson's note he plans to take her to surgery this afternoon to debride her wounds. She has been off Xarelto for this. November 23, 2016: Mr. Ricketts is resting in bed with granddaughter at bedside. She denies any chest pain, shortness of breath, palpitations, or dizziness. She underwent debridement of her wounds by Dr. Jacobson yesterday. Vital signs been stable. H&H is 9.[address] of the chest did not indicate any evidence of pulmonary embolus. It did indicate a large lesion in the lower thoracic vertebral body that is consistent with metastatic disease or myeloma. CT of the head did not indicate any acute changes. Review of systems: Cardiovascular: She denies any chest pain. Respiratory: She denies any shortness of breath or cough. Exam (Progress Note) - Constitutional Vitals: Period Temp Pulse Resp BP Sys/Contreras Pulse Ox Last 24 Hr 97.1 F-98.4 F 60-84 16-20 133-168/60-89 98-100 Exam: General appearance: no acute distress, over weight - Head Head exam: Absent: abrasion, hematoma - Eye Eye exam: Absent: periorbital swelling, laceration to eyelids Pupils: Present: SHAJI - Respiratory Respiratory exam: Present: clear to auscultation bilaterally. Absent: accessory muscle use, chest wall tenderness - Cardiovascular Cardiovascular exam: Present: regular rate and rhythm. Absent: systolic murmur - GI/Abdominal GI/Abdominal exam: Present: normal bowel sounds, soft. Absent: distended, tenderness - Extremities Exam Extremities exam: Present: normal capillary refill, edema (1+ to bilateral lower extremities) - Neurological Exam Neurological exam: Present: alert, oriented X3 - Psychiatric Psychiatric exam: Present: normal affect, normal mood - Skin Skin exam: Present: warm, dry Result/EKG - Labs CBC & BMP: 11/24/16 06:39 11/24/16 04:51 Lab Results: I have reviewed the past 24 hour labs Labs: Laboratory Results - last 24 hr 11/22/16 11/22/16 11/22/16 11:04 16:11 18:10 WBC RBC Hgb 11.5 L Hct 36.2 MCV MCH MCHC RDW Plt Count MPV Neut % (Auto) Lymph % (Auto) [place] % (Auto) Eos % (Auto) Baso % (Auto) Neut # (Auto) Lymph # (Auto) [place] # (Auto) Eos # (Auto) Baso # (Auto) Immature Gran % Nucleated RBC % Immature Gran # Nucleated RBCs # Immature Plt Fraction POC Glucose 337 H 123 H 11/22/16 11/22/16 11/22/16 18:32 20:15 22:26 WBC RBC Hgb 9.9 L Hct 30.8 L MCV MCH MCHC RDW Plt Count MPV Neut % (Auto) Lymph % (Auto) [place] % (Auto) Eos % (Auto) Baso % (Auto) Neut # (Auto) Lymph # (Auto) [place] # (Auto) Eos # (Auto) Baso # (Auto) Immature Gran % Nucleated RBC % Immature Gran # Nucleated RBCs # Immature Plt Fraction POC Glucose 198 H 233 H 11/22/16 11/23/16 11/23/16 23:42 06:06 09:09 WBC 7.2 D RBC 3.35 L Hgb 9.7 L Hct 30.6 L MCV 91.3 MCH 29 MCHC 31.7 L RDW 16.8 Plt Count 278 D MPV 10.5 Neut % (Auto) 81.9 H Lymph % (Auto) 10.7 L [place] % (Auto) 5.7 Eos % (Auto) 0.6 Baso % (Auto) 0.1 Neut # (Auto) 5.9 Lymph # (Auto) 0.8 L [place] # (Auto) 0.4 Eos # (Auto) 0.0 Baso # (Auto) 0.0 Immature Gran % 1.0 Nucleated RBC % 0.0 Immature Gran # 0.07 Nucleated RBCs # 0.00 Immature Plt Fraction 0.0 POC Glucose 281 H 286 H - Diagnostic Findings Procedure: Chest x-ray: report reviewed by me, CT - chest: report reviewed by me Quality Measures - VTE Contraindication to Pharmacological VTE Prophylaxis: Already on Theraputic Agent , No Prophylaxis Needed Specialty Discharge - Follow Up or Referrals Follow up with: Brice Messer MD [Physician] - I, Ortega Fajardo MD, personally performed the services described in this documentation, ascribed by Shaina Rodriguez RN in my presence, and it is both accurate and complete 421 .
--- NOTE | 2016-11-24 14:24 | Cardiology Progress Note ---
I, Shaina Rodriguez RN, am scribing for, and in the presence of, Ortega Fajardo MD 14:23. Assessment and Plan (1) Cardiomyopathy Status: Chronic Assessment and plan: Initial assessment and plan November 21, 2016: Xarelto is on hold in anticipation of surgery Try to have her off the Xarelto as short as is possible to reduce her risk of having a stroke. She has multiple risk factors for stroke Restart amiodarone unless you know the reason not to Check EKG in the a.m. I will follow along with you. Assessment and plan November 22, 2016: No chest pain or shortness breath To have debridement of wounds today I discussed with the patient and would restart the Xarelto after the surgery, possibly tomorrow I'll continue to follow closely postop, Watch for any signs or symptoms of bleeding. Assessment and plan November 24, 2016: No chest pain or shortness of breath On DVT prophylaxis Lovenox With her history of known PEs, would want her back on Xarelto whenever Dr. Jacobson says is okay to do so. Await Dr. Jacobson's restarting the Xarelto. Potassium remains low. We will give some additional oral potassium., 40 mg p.o. now Current Visit: Yes (2) Paroxysmal atrial fibrillation Status: Chronic Current Visit: No (3) History of pulmonary embolism Status: Chronic Current Visit: No (4) Diabetes mellitus Status: Inactive Current Visit: Yes (5) Hypertension Status: Chronic Current Visit: Yes Cardiology - PN: Subj Interval history: File Clerk: Dr. Messer PCP: Dr. Carpio Summary: Ms. Ricketts is a 71 year old female who is routinely followed by Dr. Messer with a history of pulmonary embolism, diabetes, paroxysmal edge fibrillation, and cardiomyopathy. She is chronically anticoagulated on Xarelto. She is on amiodarone for rate control. Echocardiogram done June 29, 2016 with ejection fraction of 20%. History includes brother with hypertension diabetes. She reports is a lifetime non-smoker. She tells me she came to the emergency department for evaluation November 20 because she became weak. The note from the ED indicates she came in because of increased swelling and open wounds to her thighs. She denied any chest pain, shortness of breath, palpitations, or dizziness. She has been started on IV antibiotics and her Xarelto has not been restarted. H&H this morning was 6.6 and 21.9. She was transfused 2 units of red blood cells she tells me she has had a problem with anemia in the past. Venous Doppler was negative for DVT bilateral lower extremities. No acute cardiopulmonary findings were found on the chest x-ray. November 22, 2016: Ms. Ricketts is seen resting in bed. She denies any chest pain, shortness of breath, palpitations, or dizziness. After blood transfusion yesterday, her H&H is improved to 9.6 and 29.6. She states she does feel much better. According to Dr. Jacobson's note he plans to take her to surgery this afternoon to debride her wounds. She has been off Xarelto for this. November 23, 2016: Mr. Ricketts is resting in bed with granddaughter at bedside. She denies any chest pain, shortness of breath, palpitations, or dizziness. She underwent debridement of her wounds by Dr. Jacobson yesterday. Vital signs been stable. H&H is 9.[address] of the chest did not indicate any evidence of pulmonary embolus. It did indicate a large lesion in the lower thoracic vertebral body that is consistent with metastatic disease or myeloma. CT of the head did not indicate any acute changes. November 24, 2016: Ms. Ricketts is resting in bed. She is seen along with her granddaughter. She denies any chest pain or shortness of breath. Vital signs been stable. She is day #2 status post debridement of wounds by Dr. Arreaga. Her Xarelto is still on hold. Review of systems: Cardiovascular: She denies any chest pain. Respiratory: She denies any shortness of breath or cough. Exam (Progress Note) - Constitutional Vitals: Period Temp Pulse Resp BP Sys/Contreras Pulse Ox Last 24 Hr 96.6 F-98.4 F 57-72 16-20 91-121/45-64 98-100 Exam: General appearance: no acute distress, over weight - Head Head exam: Absent: abrasion, hematoma - Eye Eye exam: Absent: periorbital swelling, laceration to eyelids Pupils: Present: SHAJI - Respiratory Respiratory exam: Present: clear to auscultation bilaterally. Absent: accessory muscle use, chest wall tenderness - Cardiovascular Cardiovascular exam: Present: regular rate and rhythm. Absent: systolic murmur - GI/Abdominal GI/Abdominal exam: Present: normal bowel sounds, soft. Absent: distended, tenderness - Extremities Exam Extremities exam: Present: normal capillary refill, edema (1+ to bilateral lower extremities), edema to right hand - Neurological Exam Neurological exam: Present: alert, oriented X3 - Psychiatric Psychiatric exam: Present: normal affect, normal mood - Skin Skin exam: Present: warm, dry Result/EKG - Labs CBC & BMP: 11/24/16 06:39 11/24/16 04:51 Lab Results: I have reviewed the past 24 hour labs Labs: Laboratory Results - last 24 hr 11/22/16 11/23/16 11/23/16 05:31 09:02 09:09 WBC RBC Hgb Hct MCV MCH MCHC RDW Plt Count MPV Neut % (Auto) Lymph % (Auto) [place] % (Auto) Eos % (Auto) Baso % (Auto) Neut # (Auto) Lymph # (Auto) [place] # (Auto) Eos # (Auto) Baso # (Auto) Total Counted Immature Gran % Nucleated RBC % Immature Gran # Segmented Neutrophils Band Neutrophils Lymphocytes Monocytes Eosinophils Nucleated RBCs # Giant Platelets Immature Plt Fraction Hypochromasia Microcytosis Ovalocytes Morphology Comment Sodium Potassium Chloride Carbon Dioxide Anion Gap BUN Creatinine GFR Calculation BUN/Creatinine Ratio Glucose POC Glucose Calculated Osmolality Calcium Total Protein 5.6 L Vancomycin Trough 9.9 L Blood Type Cancelled Antibody Screen Cancelled Crossmatch See Detail Blood Bank Comment Cancelled 11/23/16 11/23/16 11/23/16 09:09 09:09 12:09 WBC RBC Hgb Hct MCV MCH MCHC RDW Plt Count MPV Neut % (Auto) Lymph % (Auto) [place] % (Auto) Eos % (Auto) Baso % (Auto) Neut # (Auto) Lymph # (Auto) [place] # (Auto) Eos # (Auto) Baso # (Auto) Total Counted 100 Immature Gran % Nucleated RBC % Immature Gran # Segmented Neutrophils 81 Band Neutrophils 1 Lymphocytes 14 L Monocytes 3 Eosinophils 1 Nucleated RBCs # Giant Platelets Few Immature Plt Fraction Hypochromasia 1+ Microcytosis 1+ Ovalocytes Slight Morphology Comment Sodium 138 Potassium 3.8 Chloride 103 Carbon Dioxide 26 Anion Gap 12.8 BUN 4 L Creatinine 0.50 L GFR Calculation 135 BUN/Creatinine Ratio 8.00 Glucose 208 H POC Glucose 267 H Calculated Osmolality 277.7 Calcium 7.2 L Total Protein Vancomycin Trough Blood Type Antibody Screen Crossmatch Blood Bank Comment 11/23/16 11/23/16 11/24/16 16:33 19:09 04:51 WBC RBC Hgb Hct MCV MCH MCHC RDW Plt Count MPV Neut % (Auto) Lymph % (Auto) [place] % (Auto) Eos % (Auto) Baso % (Auto) Neut # (Auto) Lymph # (Auto) [place] # (Auto) Eos # (Auto) Baso # (Auto) Total Counted Immature Gran % Nucleated RBC % Immature Gran # Segmented Neutrophils Band Neutrophils Lymphocytes Monocytes Eosinophils Nucleated RBCs # Giant Platelets Immature Plt Fraction Hypochromasia Microcytosis Ovalocytes Morphology Comment Sodium 139 Potassium 3.4 L Chloride 105 Carbon Dioxide 28 Anion Gap 9.4 BUN 7 Creatinine 0.40 L GFR Calculation 145 BUN/Creatinine Ratio 17.00 Glucose 156 H POC Glucose 240 H 252 H Calculated Osmolality 277.5 Calcium 6.7 L Total Protein Vancomycin Trough Blood Type Antibody Screen Crossmatch Blood Bank Comment 11/24/16 11/24/16 06:39 07:17 WBC 5.3 RBC 2.99 L Hgb 8.7 L Hct 27.0 L MCV 90.3 MCH 29 MCHC 32.2 RDW 16.8 Plt Count 222 D MPV 9.8 Neut % (Auto) 73.4 Lymph % (Auto) 15.0 L [place] % (Auto) 8.8 Eos % (Auto) 1.3 Baso % (Auto) 0.2 Neut # (Auto) 3.9 Lymph # (Auto) 0.8 L [place] # (Auto) 0.5 Eos # (Auto) 0.1 Baso # (Auto) 0.0 Total Counted Immature Gran % 1.3 Nucleated RBC % 0.0 Immature Gran # 0.07 Segmented Neutrophils Band Neutrophils Lymphocytes Monocytes Eosinophils Nucleated RBCs # 0.00 Giant Platelets Immature Plt Fraction 0.0 Hypochromasia Microcytosis Ovalocytes Morphology Comment Sodium Potassium Chloride Carbon Dioxide Anion Gap BUN Creatinine GFR Calculation BUN/Creatinine Ratio Glucose POC Glucose 199 H Calculated Osmolality Calcium Total Protein Vancomycin Trough Blood Type Antibody Screen Crossmatch Blood Bank Comment - Diagnostic Findings Procedure: Chest x-ray: report reviewed by me Quality Measures - VTE Contraindication to Pharmacological VTE Prophylaxis: Already on Theraputic Agent , No Prophylaxis Needed Specialty Discharge - Follow Up or Referrals Follow up with: Brice Messer MD [Physician] - ITana Dale, MD, personally performed the services described in this documentation, ascribed by Shaina Rodriguez RN in my presence, and it is both accurate and complete .
--- NOTE | 2016-11-24 15:08 | General Surgery Progress Note ---
Assessment and Plan - Time spent with patient Time spent with patient: Less than 30 minutes (1) Infected decubitus ulcer Status: Acute Assessment and plan: Impression: Decubitus ulcers of 1. Left hip unstageable 2. Left posterior thigh unstageable 3. Sacral unstageable 4. Right hip unstageable Plan: We will need to have patient off Xarelto about 3 days and then we could take to surgery for some further debridement. We will start local wound care at this time. 11/22/2016. Plans at this time is to take patient to surgery this afternoon for debridement of these ulcers. She will probably have to be under general anesthesia and will have to rotate her from side to side in order to do this. Family and patient understands this and agreeable to surgery at this time. They understand the risk complications. Hematocrit is 29 this morning after 2 units but will set up 2 units because of may need it for surgery. Certainly will see what cardiology has to say if they need to delay her surgery because of her heart we might be able to do that but certainly we need to get these wounds cleaned up so that we can reduce the stress on her system. 11/24/2016. Patient is progressing slowly here at this time. The 2 ischial decubitus ulcers are difficult see no figure need additional debridement but there is deep at this time. The left hip ulcer though will require some further debridements matter we and and the timing on that. I prefer try and see if we can get a wound VAC on this left hip. Be going to get a wound VAC on the ischial decubitus ulcers also but unfortunately I am not sure that would hold very well. Will probably need to debride the right hip ulcer at some point just cannot get this process cleaned. He does run close to the right ischial decubitus ulcer also. Current Visit: Yes Qualifiers: Pressure ulcer stage: unstageable Qualified Code(s): L89.95 - Pressure ulcer of unspecified site, unstageable; L08.9 - Local infection of the skin and subcutaneous tissue, unspecified; L08.9 - Local infection of the skin and subcutaneous tissue, unspecified (2) Diabetes mellitus type 2 in nonobese Status: Chronic Assessment and plan: Impression: Diabetes type 2 Plan: Medical management Current Visit: No (3) Heart failure, systolic, due to idiopathic cardiomyopathy Status: Acute Assessment and plan: Impression: Cardiomyopathy etiology unknown Plan: Cardiology consult Current Visit: No Subjective Patient reports: Present: no new complaints, afebrile Exam - Constitutional Vitals: Period Temp Pulse Resp BP Sys/Contreras Pulse Ox Last 24 Hr 96.6 F-98.4 F 57-72 16-20 91-131/45-62 98-100 General appearance: mild distress - Head Head exam: Present: normal inspection - ENT ENT exam: Present: normal exam - Neck Neck exam: Present: normal inspection - Respiratory Respiratory exam: Present: rales - Cardiovascular Cardiovascular exam: Present: RRR - GI/Abdominal GI/Abdominal exam: Present: hypoactive bowel sounds, soft - Extremities Exam Extremities exam: Present: other (Wound of the left hip appears to be a little bit pale down in the depths of the wound there may be some more necrotic tissue needs to be debrided away. The bilateral fascial decubitus ulcers are fairly clean difficult to see in there to get an idea what had the deep part of the wound beds look at this point. The right hip ulcer which we did not debride looks like is going require some because of the amount of necrotic skin around the edges.) - Back Exam Back exam: Present: normal inspection - Neurological Exam Neurological exam: Present: alert, oriented X3, CN II-XII intact - Skin Skin exam: Present: normal color, warm, dry Results - Labs CBC & BMP: 11/24/16 06:39 11/24/16 04:51 Lab Results: I have reviewed the past 24 hour labs Quality Measures - VTE Contraindication to Pharmacological VTE Prophylaxis: Already on Theraputic Agent , No Prophylaxis Needed Specialty Discharge - Follow Up or Referrals Follow up with: Brice Messer MD [Physician] -
[2016-11-24] MEDS: SODIUM HYPOCHLORITE 0.25% IRRIG 473 ML BOTTLE TOP SCH ×2 (16:19)
[2016-11-24] MEDS: POTASSIUM CHLORIDE 20 MEQ PACK PO ONE ×2 (16:41→17:21)
--- NOTE | 2016-11-24 16:56 | Post Interventional Procedure ---
Pre-op diagnosis: decubitus ulceration Post-op diagnosis: same Procedure: PICC Placement Contrast: none Flouroscopy: 0.2 min Radiologist: Raffaele Carrero Anesthesia: local Specimens: none sent Estimated blood loss: none Complications: none Condition: stable Description/Findings: left arm 5 Fr dual lumen power picc placement done and ready for use Assessment and Plan - Time spent with patient Time spent with patient: Less than 30 minutes
--- NOTE | 2016-11-24 17:01 | Interventional Radiology Rpt ---
IR PICC line insertion, US guide vascular access IR PICC Placement Peripherally-inserted central catheter (PICC) placement using ultrasound and fluoroscopic guidance Ultrasound of the left upper extremity Clinical Information: 71-year-old female with infected decubitus ulcer. PICC line is requested for long-term intravenous antibiotic administration. Physician: Dr. Carrero Procedure: The patient was advised of the benefits, risks, and alternatives of the procedure and informed consent was obtained. A time out was performed with verification of the patient's name, MRN, site of procedure, and type of procedure to be performed. The patient was positioned in the supine position on the angiographic table. The site was prepped and draped in the usual sterile fashion. Additionally, maximal sterile barrier technique was employed for the procedure. A athletic scout radiograph reveals no relevant abnormality. Ultrasound examination of the left arm demonstrates patent and compressible brachial and basilic veins. The left arm was prepped and draped in the usual sterile fashion. The left basilic vein was again identified. Using ultrasound guidance, a 21 gauge needle was used to access the vein. A permanent ultrasound recording of vascular access was obtained for the patient's record. A 0.018" cope wire was then advanced into the vein. The needle was exchanged for a 5 [place] peel-away sheath. A 5 [place] double lumen Bard Solo PICC catheter was measured and trimmed to the 43 cm teresa. The PICC line was advanced through the sheath and into the central circulation. The catheter tip was positioned at the cavo-atrial junction. The peel-away sheath was then removed. At the conclusion of the procedure, the catheter was secured in place using a Stat-Lock device. A sterile dressing was applied. The lumens aspirate and flush freely. The catheter is ready for immediate use. The patient tolerated the procedure well and was returned to the PRU in stable condition. EBL: < 5 mL. Complications: None. Fluoroscopy time: 0.2 minutes Total number of images for this study: 2 Conclusion: Successful placement of a 5 [place] double lumen Bard Solo power injectable PICC via the left basilic vein. The catheter is ready for immediate use. PROCEDURE INTERPRETED AT [facility] DEPARTMENT OF RADIOLOGY Final Report Signed by: Raffaele Carrero
[2016-11-24 17:09] LABS: Collection Time,Urine 24 HOURS; Total Volume,Urine 2100 ML (400-2000)
--- NOTE | 2016-11-24 17:13 | Hospitalist Progress Note ---
Assessment and Plan (1) Infected decubitus ulcer Status: Acute Assessment and plan: s/p debridement, Continue vancomycin and rocephin Current Visit: Yes Qualifiers: Pressure ulcer stage: unstageable Qualified Code(s): L89.95 - Pressure ulcer of unspecified site, unstageable; L08.9 - Local infection of the skin and subcutaneous tissue, unspecified; L08.9 - Local infection of the skin and subcutaneous tissue, unspecified (2) History of pulmonary embolism Status: Chronic Assessment and plan: Chest CT and venous Dopplers negative for PE or DVT at this time we will do DVT prophylaxis Lovenox only Current Visit: No (3) Gait disorder Status: Acute Assessment and plan: Nerve conduction study shows peripheral neuropathy most likely due to diabetes. Patient also has severe B12 deficiency and is receiving injections. Current Visit: Yes (4) Atrial fibrillation Status: Acute Assessment and plan: Currently in sinus rhythm, continue amiodarone Current Visit: No (5) Diabetes mellitus Status: Inactive Assessment and plan: BS not controlled but better today, lantus increased to 27 units sq, cont mealtime coverage Current Visit: Yes (6) Cardiomyopathy Status: Chronic Assessment and plan: Echocardiogram from June 2016 showed an EF of 20% with moderate left ventricular hypertrophy with diastolic dysfunction. PAP of 34 Current Visit: Yes (7) Acute blood loss anemia Status: Acute Assessment and plan: hgb stable for now Current Visit: Yes Hospitalist: Subjective Interval history: Rounded early this morning. Returned to look at the wounds with Dr. Jacobson. He wants to debride her again probably next week. We are still working on placement. She no longer needs O2 and it has been discontinued. We got a PICC line today she will need that for IV antibiotics. We are trying for [facility]. Exam - Constitutional Vitals: Period Temp Pulse Resp BP Sys/Contreras Pulse Ox Last 24 Hr 96.6 F-98.6 F 57-72 16-20 91-131/45-63 98-100 Exam: Heart Rate-[RRR] Lungs-[CTAB] GI-[+bs soft, NT] Ext-trace edema] Neuro [Motor 4/5 bedridden, [alert and oriented times 3] Skin wound debrided and look clean free of necrosis psych [normal mood and flat affect] General [no acute distress] Results - Labs CBC & BMP: 11/24/16 06:39 11/24/16 04:51 Lab Results: I have reviewed the past 24 hour labs Labs: blood cx times 2, negative, tissue culture MRSA, enterococcus faecalis and klebsiella - Diagnostic Findings Procedure: CT - chest: report reviewed by me (no evidence PE ) Quality Measures - VTE Contraindication to Pharmacological VTE Prophylaxis: Already on Theraputic Agent , No Prophylaxis Needed Specialty Discharge - Follow Up or Referrals Follow up with: Brice Messer MD [Physician] -
[2016-11-24 17:14] LABS: Total Protein 24 Hr Ur Result 315 MG/24HR (0-149.1)
[2016-11-24] MEDS ORDERED: POTASSIUM CHLORIDE 20 MEQ TABLET PO ONE (17:16)
[2016-11-24] MEDS: INSULIN GLARGINE 100 UNIT/ML SUBCUT SCH (21:41)
[2016-11-25] MEDS: VANCOMYCIN INJ 1,500 MG in SODIUM CHLORIDE 0.9% 500 ML IV SCH ×2 (00:39→18:25)
[2016-11-25 07:21] LABS: Basophils % 0.2 % (0.0-0.8); Eosinophils # 0.1 10*3/uL (0.0-0.87); Eosinophils % 1.1 % (0.00-10.9); Hematocrit 25.9 VOL% (35.7-47.0); Hemoglobin 8.5 GM/DL (12.0-16.0); Immature Granulocytes % 1.6 %; Lymphocytes % 15.4 % (21.3-54.2); Mean Corpuscular HGB Conc 32.8 GM/DL (32-36); Mean Corpuscular Hemoglobin 31 PG (27-34); Mean Corpuscular Volume 92.8 FL (87-102); Mean Platelet Volume 10.1 FL (9.6-12.0); Monocytes # 0.4 10*3/uL (0.11-0.8); Monocytes % 6.9 % (1.7-12.7); Neutrophils # 4.7 10*3/uL (1.4-7.4); Neutrophils % 74.8 % (38.7-73.9); Platelet Count 219 T/CUMM (130-400); Red Blood Count 2.79 MC/CUMM (3.8-5.5); Red Cell Distribution Width 16.7 % (9.3-17.3); White Blood Count 6.2 T/CUMM (4-12)
[2016-11-25 07:50] LABS: Calcium 6.9 MG/DL (8.5-10.1); Osmolality,Calculated 277.1 MOS/KG (273-304); Potassium 3.8 MMOL/L (3.5-5.1)
[2016-11-25 08:09] LABS: 24 Hr Protein (Bench) 315 MG/24HR (0-149.1)
[2016-11-25] MEDS: MAGNESIUM OXIDE 400 MG TABLET PO SCH ×2 (08:38→21:29)
[2016-11-25] MEDS: LOSARTAN 25 MG TABLET PO SCH (08:38)
[2016-11-25] MEDS: PANTOPRAZOLE 40 MG TABLET PO SCH (08:39)
[2016-11-25] MEDS: POTASSIUM CHLORIDE 10 MEQ TABLET PO SCH (08:39)
[2016-11-25] MEDS: AMIODARONE 200 MG TABLET PO SCH ×2 (08:39→21:29)
[2016-11-25] MEDS: FUROSEMIDE 20 MG/2 ML VIAL IV SCH (08:39)
[2016-11-25] MEDS: SILVER SULFADIAZINE 1% CREAM 400 GM JAR TOP SCH (08:40)
[2016-11-25] MEDS: SODIUM HYPOCHLORITE 0.25% IRRIG 473 ML BOTTLE TOP SCH ×2 (08:40→12:43)
[2016-11-25] MEDS: ENOXAPARIN 40 MG/0.4 ML SYRINGE SUBCUT SCH ×2 (08:40→12:42)
[2016-11-25] MEDS: INSULIN REGULAR 100 UNIT/ML SUBCUT SCH ×8 (08:40→21:30)
[2016-11-25] MEDS: CYANOCOBALAMIN 1000 MCG/1 ML VIAL SUBCUT SCH (08:41)
--- NOTE | 2016-11-25 11:26 | General Surgery Progress Note ---
Assessment and Plan - Time spent with patient Time spent with patient: Less than 30 minutes (1) Infected decubitus ulcer Status: Acute Assessment and plan: Impression: Decubitus ulcers of 1. Left hip unstageable 2. Left posterior thigh unstageable 3. Sacral unstageable 4. Right hip unstageable Plan: We will need to have patient off Xarelto about 3 days and then we could take to surgery for some further debridement. We will start local wound care at this time. 11/22/2016. Plans at this time is to take patient to surgery this afternoon for debridement of these ulcers. She will probably have to be under general anesthesia and will have to rotate her from side to side in order to do this. Family and patient understands this and agreeable to surgery at this time. They understand the risk complications. Hematocrit is 29 this morning after 2 units but will set up 2 units because of may need it for surgery. Certainly will see what cardiology has to say if they need to delay her surgery because of her heart we might be able to do that but certainly we need to get these wounds cleaned up so that we can reduce the stress on her system. 11/24/2016. Patient is progressing slowly here at this time. The 2 ischial decubitus ulcers are difficult see no figure need additional debridement but there is deep at this time. The left hip ulcer though will require some further debridements matter we and and the timing on that. I prefer try and see if we can get a wound VAC on this left hip. Be going to get a wound VAC on the ischial decubitus ulcers also but unfortunately I am not sure that would hold very well. Will probably need to debride the right hip ulcer at some point just cannot get this process cleaned. He does run close to the right ischial decubitus ulcer also. 11/25/2016 will need to set patient up for surgery to debride the right hip ulcer on Monday. It appears that the left may need some further debridement in order to get it in shape and may be consideration for wound VAC. The bilateral ischial ulcers are fairly clean I do not see a lot of necrotic tissue there we might look at the end up with we had to debride him when not sure at this point. Current Visit: Yes Qualifiers: Pressure ulcer stage: unstageable Qualified Code(s): L89.95 - Pressure ulcer of unspecified site, unstageable; L08.9 - Local infection of the skin and subcutaneous tissue, unspecified; L08.9 - Local infection of the skin and subcutaneous tissue, unspecified (2) Diabetes mellitus type 2 in nonobese Status: Chronic Assessment and plan: Impression: Diabetes type 2 Plan: Medical management Current Visit: No (3) Heart failure, systolic, due to idiopathic cardiomyopathy Status: Acute Assessment and plan: Impression: Cardiomyopathy etiology unknown Plan: Cardiology consult Current Visit: No Subjective Patient reports: Present: no new complaints, tolerating a regular diet, bowel movement, afebrile Exam - Constitutional Vitals: Period Temp Pulse Resp BP Sys/Contreras Pulse Ox Last 24 Hr 97.5 F-98.6 F 53-75 18-20 108-141/47-63 93-99 General appearance: mild distress - Head Head exam: Present: normal inspection - ENT ENT exam: Present: normal exam - Neck Neck exam: Present: normal inspection - Respiratory Respiratory exam: Present: rales - Cardiovascular Cardiovascular exam: Present: RRR - GI/Abdominal GI/Abdominal exam: Present: hypoactive bowel sounds, soft - Extremities Exam Extremities exam: Present: other (Right hip ulcer shows some ischemic changes and needs to be debrided. Left hip ulcer which was debrided before has some deep necrotic tissue that we plan to clean up. The ischeal ulcers though look fairly clean at this point.) - Back Exam Back exam: Present: normal inspection - Neurological Exam Neurological exam: Present: alert, oriented X3, CN II-XII intact - Skin Skin exam: Present: normal color, warm, dry Results - Labs CBC & BMP: 11/25/16 06:00 11/25/16 06:00 Lab Results: I have reviewed the past 24 hour labs Quality Measures - VTE Contraindication to Pharmacological VTE Prophylaxis: Already on Theraputic Agent , No Prophylaxis Needed Specialty Discharge - Follow Up or Referrals Follow up with: Brice Messer MD [Physician] -
--- NOTE | 2016-11-25 12:51 | Neurology Progress Note ---
Neurology - PN : Subjective Interval history: Patient seems to be doing better. She has better appetite now. More alert and awake. Talking. Moving extremities very weakly. She is awaiting for LTAC replacement. Exam (Progress Note) - Constitutional Vitals: Period Temp Pulse Resp BP Sys/Contreras Pulse Ox Last 24 Hr 97.5 F-98.6 F 53-75 18-20 108-141/47-63 93-99 Exam: GENERAL: Patient is in no acute distress. NECK: Neck is supple. There is no JVD. No carotid bruits present. No thyroid masses. CVS: First and second heart sounds are normal. There is no S3 present. Regular rate and rhythm. RESPIRATORY: Lungs are clear to auscultation without any rales or rhonchi. ABDOMEN: Soft and non-tender. Bowel sounds are present. There is no hepatosplenomegaly. EXT: There is no palpable edema. Peripheral pulses are present. Skin: No rashes Central Nervous system: General: Alert, awake and Oriented x 3 Speech: Fluent Comprehension: Intact and normal Facial expressions: Normal Cranial Nerves: CN1/Olfactory: Normal CN II/ Optic: Normal, Visual [place] unreliable CN III, and : SHAJI & EOMI CN V: Normal & intact CN VII: face is symmetric CNVIII: Normal CN XI/X/XI/XII: Intact and Normal Motor: Bulk and Tone is normal. Strength in the lower extremities 2/5 Strength in the upper extremities 3-4/5 Sensory: Decreased for all the modalities of PP, LT and temp sense Reflexes: Absent and symmetrical Cerebellar function: Slow finger to nose testing. Toes: Equivocal Gait: Not tested Results - Labs CBC & BMP: 11/25/16 06:00 11/25/16 06:00 Assessment and Plan (1) Gait disorder Status: Acute Assessment and plan: Severe peripheral neuropathy could very well be secondary to B12 deficiency and diabetes. Continue B12 replacement Continue PT and OT For LTAC placement Sign off please call as needed Current Visit: Yes Quality Measures - VTE Contraindication to Pharmacological VTE Prophylaxis: Already on Theraputic Agent , No Prophylaxis Needed Specialty Discharge - Follow Up or Referrals Follow up with: Brice Messer MD [Physician] -
--- NOTE | 2016-11-25 15:52 | Hospitalist Progress Note ---
Assessment and Plan (1) Infected decubitus ulcer Status: Acute Assessment and plan: s/p debridement, Continue vancomycin and rocephin Current Visit: Yes Qualifiers: Pressure ulcer stage: unstageable Qualified Code(s): L89.95 - Pressure ulcer of unspecified site, unstageable; L08.9 - Local infection of the skin and subcutaneous tissue, unspecified; L08.9 - Local infection of the skin and subcutaneous tissue, unspecified (2) History of pulmonary embolism Status: Chronic Assessment and plan: Chest CT and venous Dopplers negative for PE or DVT at this time we will do DVT prophylaxis Lovenox only Current Visit: No (3) Gait disorder Status: Acute Assessment and plan: Due to peripheral neuropathy from diabetes and B12 deficiency continue B12 injections. This is day number 04/19 Current Visit: Yes (4) Atrial fibrillation Status: Acute Assessment and plan: Currently in sinus rhythm, continue amiodarone, continue DVT Lovenox only due to anemia Current Visit: No (5) Diabetes mellitus Status: Inactive Assessment and plan: BS better controlled today Current Visit: Yes (6) Cardiomyopathy Status: Chronic Assessment and plan: Echocardiogram 20% continue Lasix IV Current Visit: Yes (7) Acute blood loss anemia Status: Acute Assessment and plan: hgb stable for now Current Visit: Yes (8) Hypomagnesemia Status: Acute Assessment and plan: Replacing Current Visit: Yes Hospitalist: Subjective Interval history: [facility] since patient does not qualify for their care facility, wound VAC was placed today. Patient still requiring IV antibiotics. obtained PICC line yesterday. Still waiting for insurance approval for specialty. Patient reports her pain is controlled. Exam - Constitutional Vitals: Period Temp Pulse Resp BP Sys/Contreras Pulse Ox Last 24 Hr 97.5 F-98.4 F 53-75 18-20 108-141/47-60 93-97 Exam: Heart Rate-[RRR] Lungs-[CTAB] GI-[+bs soft, NT] Ext-trace edema] Neuro [Motor 4/5 bedridden, [alert and oriented times 3] Skin not observed today psych [normal mood and flat affect] General [no acute distress] Results - Labs CBC & BMP: 11/25/16 06:00 11/25/16 06:00 Lab Results: I have reviewed the past 24 hour labs Labs: Wound culture growing multiple organism, blood cultures negative no growth Quality Measures - VTE Contraindication to Pharmacological VTE Prophylaxis: Already on Theraputic Agent , No Prophylaxis Needed Specialty Discharge - Follow Up or Referrals Follow up with: Brice Messer MD [Physician] -
[2016-11-25] MEDS ORDERED: MAGNESIUM SULF RIDER 2 GM in PREMIX 1 EACH IV ONE (15:53)
--- NOTE | 2016-11-25 16:11 | Cardiology Progress Note ---
Michael Cabrera April, RN, am scribing for, and in the presence of, Katty Pulido NP 16:10. Assessment and Plan (1) Cardiomyopathy Status: Chronic Assessment and plan: Initial assessment and plan November 21, 2016: Xarelto is on hold in anticipation of surgery Try to have her off the Xarelto as short as possible in order to reduce her risk of stroke. She has multiple risk factors for stroke Amiodarone has been reinitiated and she is tolerating this well. Check EKG in the a.m. I will follow along with you. Assessment and plan November 22, 2016: No chest pain or shortness breath To have debridement of wounds today I discussed with the patient and would restart the Xarelto after the surgery, possibly tomorrow I'll continue to follow closely postop, Watch for any signs or symptoms of bleeding. Assessment and plan November 24, 2016: No chest pain or shortness of breath On DVT prophylaxis Lovenox With her history of known PEs, would want her back on Xarelto whenever Dr. Jacobson says is okay to do so. Await Dr. Jacobson's restarting the Xarelto. Potassium remains low. We will give some additional oral potassium., 40 mg p.o. now Assessment and plan November 25, 2016: Denies chest pain, heaviness or tightness. Vital signs are stable. At this point, she is awaiting additional surgery by Dr. Jacobson to be performed on Monday. Xarelto is on hold at this time. Will need to be reinitiated as soon as possible after surgery Monday In general, blood pressure is adequately controlled. We will continue to follow closely. Current Visit: Yes (2) Paroxysmal atrial fibrillation Status: Chronic Assessment and plan: Heart rate is well controlled on amiodarone. We will continue to monitor this closely. EKG in a.m. Current Visit: No (3) History of pulmonary embolism Status: Chronic Current Visit: No (4) Diabetes mellitus Status: Inactive Current Visit: Yes (5) Hypertension Status: Chronic Assessment and plan: Adequately controlled. Currently on ARB and tolerating without difficulty. Current Visit: Yes Cardiology - PN: Subj Interval history: Katty Cabrera NP, have personally seen, examined Ms. Ricketts in the presence of Shaina Rodriguez RN. Shaina Rodriguez, RN has acted as a scribe for me today. She and I have discussed this patient's plan of care in detail and I have reviewed the information listed below and agree entirely with her statements. Security Researcher: Dr. Messer PCP: Dr. Carpio Summary: Ms. Ricketts is a 71 year old female who is routinely followed by Dr. Messer with a history of pulmonary embolism, diabetes, paroxysmal edge fibrillation, and cardiomyopathy. She is chronically anticoagulated on Xarelto. She is on amiodarone for rate control. Echocardiogram done June 29, 2016 with ejection fraction of 20%. History includes brother with hypertension diabetes. She reports is a lifetime non-smoker. She tells me she came to the emergency department for evaluation November 20 because she became weak. The note from the ED indicates she came in because of increased swelling and open wounds to her thighs. She denied any chest pain, shortness of breath, palpitations, or dizziness. She has been started on IV antibiotics and her Xarelto has not been restarted. H&H this morning was 6.6 and 21.9. She was transfused 2 units of red blood cells she tells me she has had a problem with anemia in the past. Venous Doppler was negative for DVT bilateral lower extremities. No acute cardiopulmonary findings were found on the chest x-ray. November 22, 2016: Ms. Ricketts is seen resting in bed. She denies any chest pain, shortness of breath, palpitations, or dizziness. After blood transfusion yesterday, her H&H is improved to 9.6 and 29.6. She states she does feel much better. According to Dr. Jacobson's note he plans to take her to surgery this afternoon to debride her wounds. She has been off Xarelto for this. November 23, 2016: Mr. Ricketts is resting in bed with granddaughter at bedside. She denies any chest pain, shortness of breath, palpitations, or dizziness. She underwent debridement of her wounds by Dr. Jacobson yesterday. Vital signs been stable. H&H is 9.[address] of the chest did not indicate any evidence of pulmonary embolus. It did indicate a large lesion in the lower thoracic vertebral body that is consistent with metastatic disease or myeloma. CT of the head did not indicate any acute changes. November 24, 2016: Ms. Ricketts is resting in bed. She is seen along with her granddaughter. She denies any chest pain or shortness of breath. Vital signs been stable. She is day #2 status post debridement of wounds by Dr. Jacobson. Her Xarelto is still on hold. November 25, 2016: Ms. Ricketts is seen today along with her granddaughter. She denies any chest pain or shortness of breath. Oxygen is no longer in use, she is tolerating this well. Vital signs have been stable. She is day #3 status post debridement of wounds by Dr. Jacobson. [facility] continues to be on hold. Plans are for further debridement on Monday. She had a PICC line placed yesterday, discharge planning is in place alf facility. Review of systems: Cardiovascular: She denies any chest pain. Respiratory: She denies any shortness of breath or cough. Exam (Progress Note) - Constitutional Vitals: Period Temp Pulse Resp BP Sys/Contreras Pulse Ox Last 24 Hr 97.5 F-98.6 F 53-75 18-20 108-141/47-63 93-99 Exam: General appearance: no acute distress, over weight - Head Head exam: Absent: abrasion, hematoma - Eye Eye exam: Absent: periorbital swelling, laceration to eyelids Pupils: Present: SHAJI - Respiratory Respiratory exam: Present: clear to auscultation bilaterally. Absent: accessory muscle use, chest wall tenderness - Cardiovascular Cardiovascular exam: Present: regular rate and rhythm. Absent: systolic murmur - GI/Abdominal GI/Abdominal exam: Present: normal bowel sounds, soft. Absent: distended, tenderness - Extremities Exam Extremities exam: Present: normal capillary refill, edema (trace to bilateral lower extremities), - Neurological Exam Neurological exam: Present: alert, oriented X3 - Psychiatric Psychiatric exam: Present: normal affect, normal mood - Skin Skin exam: Present: warm, dry, dressing noted to left lower thigh Result/EKG - Labs CBC & BMP: 11/25/16 06:00 11/25/16 06:00 Lab Results: I have reviewed the past 24 hour labs Labs: Laboratory Results - last 24 hr 11/23/16 11/23/16 11/24/16 09:02 17:06 16:28 WBC RBC Hgb Hct MCV MCH MCHC RDW Plt Count MPV Neut % (Auto) Lymph % (Auto) [place] % (Auto) Eos % (Auto) Baso % (Auto) Neut # (Auto) Lymph # (Auto) [place] # (Auto) Eos # (Auto) Baso # (Auto) Immature Gran % Nucleated RBC % Immature Gran # Nucleated RBCs # Immature Plt Fraction Sodium Potassium Chloride Carbon Dioxide Anion Gap BUN Creatinine GFR Calculation BUN/Creatinine Ratio Glucose POC Glucose 206 H Calculated Osmolality Calcium Magnesium Urine Collection Time 24 Urine Total Volume 2100 H Ur Albumin 24 Hour 100.0 Ur Total Protein 24 Hr 315 H 315 H Urine PEP Interpret Pro Electrophoresis Int Serum Total Protein PEP 4.8 L Albumin (PEP) 1.6 L Albumin (relative) 32.7 Xqotr-7-Ikiberzb 0.3 Lpapr-7-Cookjcdr rel 6.5 Nrmtd-5-Arrozjwc 0.7 Vntac-4-Kzuxphgs rel 14.3 Gagd-6-Fzkhredn 0.5 Bkcj-5-Gjdcjmme rel 11.5 Gamma Globulins 1.7 Gamma Globulins rel 35.0 11/24/16 11/25/16 11/25/16 20:40 06:00 06:00 WBC 6.2 RBC 2.79 L Hgb 8.5 L Hct 25.9 L MCV 92.8 MCH 31 MCHC 32.8 RDW 16.7 Plt Count 219 MPV 10.1 Neut % (Auto) 74.8 H Lymph % (Auto) 15.4 L [place] % (Auto) 6.9 Eos % (Auto) 1.1 Baso % (Auto) 0.2 Neut # (Auto) 4.7 Lymph # (Auto) 1.0 L [place] # (Auto) 0.4 Eos # (Auto) 0.1 Baso # (Auto) 0.0 Immature Gran % 1.6 Nucleated RBC % 0.0 Immature Gran # 0.10 Nucleated RBCs # 0.00 Immature Plt Fraction 0.0 Sodium 142 Potassium 3.8 Chloride 108 H Carbon Dioxide 28 Anion Gap 9.8 BUN 5 L Creatinine 0.30 L GFR Calculation 160 BUN/Creatinine Ratio 16.00 Glucose 64 L POC Glucose 216 H Calculated Osmolality 277.1 Calcium 6.9 L Magnesium Urine Collection Time Urine Total Volume Ur Albumin 24 Hour Ur Total Protein 24 Hr Urine PEP Interpret Pro Electrophoresis Int Serum Total Protein PEP Albumin (PEP) Albumin (relative) Pmhtp-3-Eiugecvw Whsvq-3-Rciolhmx rel Tfreb-2-Yqalmnne Exrds-8-Cezkzmgp rel Nsre-2-Nfievxzo Tilq-9-Ufkubtdq rel Gamma Globulins Gamma Globulins rel 11/25/16 11/25/16 06:00 07:20 WBC RBC Hgb Hct MCV MCH MCHC RDW Plt Count MPV Neut % (Auto) Lymph % (Auto) [place] % (Auto) Eos % (Auto) Baso % (Auto) Neut # (Auto) Lymph # (Auto) [place] # (Auto) Eos # (Auto) Baso # (Auto) Immature Gran % Nucleated RBC % Immature Gran # Nucleated RBCs # Immature Plt Fraction Sodium Potassium Chloride Carbon Dioxide Anion Gap BUN Creatinine GFR Calculation BUN/Creatinine Ratio Glucose POC Glucose 109 H Calculated Osmolality Calcium Magnesium 1.7 L Urine Collection Time Urine Total Volume Ur Albumin 24 Hour Ur Total Protein 24 Hr Urine PEP Interpret Pro Electrophoresis Int Serum Total Protein PEP Albumin (PEP) Albumin (relative) Jlqei-0-Ovnjbral Czuma-5-Hnkbtycd rel Yxigw-4-Zcchqbhb Sbblk-8-Jrvoppaj rel Hiwy-1-Egzusfvd Tchv-8-Ymfnnrrx rel Gamma Globulins Gamma Globulins rel - EKG EKG results: interpreted by me EKG shows: sinus rhythm Quality Measures - VTE Contraindication to Pharmacological VTE Prophylaxis: Already on Theraputic Agent , No Prophylaxis Needed Specialty Discharge - Follow Up or Referrals Follow up with: Brice Messer MD [Physician] - I, Katty Pulido, KITTY, personally performed the services described in this documentation, ascribed by Shaina Rodriguez RN in my presence, and it is both accurate and complete 611 .
[2016-11-25] MEDS ORDERED: EYE WASH SOLN 118 ML BOTTLE BOTH EYES PRN (19:44)
[2016-11-25] MEDS: INSULIN GLARGINE 100 UNIT/ML SUBCUT SCH (21:29)
[2016-11-26 06:44] LABS: Calcium 7.3 MG/DL (8.5-10.1); Osmolality,Calculated 277.4 MOS/KG (273-304); Potassium 4.2 MMOL/L (3.5-5.1)
[2016-11-26] MEDS: POTASSIUM CHLORIDE 10 MEQ TABLET PO SCH (09:15)
[2016-11-26] MEDS: PANTOPRAZOLE 40 MG TABLET PO SCH (09:15)
[2016-11-26] MEDS: LOSARTAN 25 MG TABLET PO SCH (09:15)
[2016-11-26] MEDS: MAGNESIUM OXIDE 400 MG TABLET PO SCH ×2 (09:15→21:36)
[2016-11-26] MEDS: AMIODARONE 200 MG TABLET PO SCH ×2 (09:16→21:36)
[2016-11-26] MEDS: CYANOCOBALAMIN 1000 MCG/1 ML VIAL SUBCUT SCH (09:16)
[2016-11-26] MEDS: INSULIN REGULAR 100 UNIT/ML SUBCUT SCH ×8 (09:16→21:39)
[2016-11-26] MEDS: FUROSEMIDE 20 MG/2 ML VIAL IV SCH (09:16)
--- NOTE | 2016-11-26 10:38 | General Surgery Progress Note ---
Assessment and Plan - Time spent with patient Time spent with patient: Less than 30 minutes (1) Infected decubitus ulcer Status: Acute Assessment and plan: 11/26/2016. Multiple infected decubitus ulcers of bilateral hips and bilateral ischia. She is currently on 3 antibiotics, which gives her coverage for all organisms we have currently reported. We may be able to taper this somewhat, and I will speak with Dr. Jacobson about narrowing this. We are currently planning to return to surgery on Monday for debridement of the right hip and additional debridement of the left hip. She and her family seem to understand and have no further questions at this time. She also did complain of some "indigestion" after eating sausage. Upon questioning, she says that she has this every time she eats sausage and is usually relieved by tcsf-ybb-oggpmin antacids. She says that she has been given something for the indigestion today and at this point it has not relieved it. On further questioning, she denies any other food intolerances, specifically fatty or fried food intolerances, denies right upper quadrant pain, nausea vomiting, bloating, or other symptoms consistent with gallbladder disease. I suggested we obtain ultrasound of the abdomen to rule out gallbladder pathology, but the patient refuses that at this time. Will continue her Protonix and to observe for problems and if she has persistent food intolerance, we may need to pursue this more aggressively. Current Visit: Yes Qualifiers: Pressure ulcer stage: unstageable Qualified Code(s): L89.95 - Pressure ulcer of unspecified site, unstageable; L08.9 - Local infection of the skin and subcutaneous tissue, unspecified; L08.9 - Local infection of the skin and subcutaneous tissue, unspecified Subjective Patient reports: Present: other (Patient complains of "indigestion "after eating sausage for breakfast.) Exam - Constitutional Vitals: Period Temp Pulse Resp BP Sys/Contreras Pulse Ox Last 24 Hr 97.6 F-98.5 F 54-75 16-20 118-142/51-68 93-97 General appearance: no acute distress - Respiratory Respiratory exam: Present: clear to auscultation bilaterally - Cardiovascular Cardiovascular exam: Present: RRR - GI/Abdominal GI/Abdominal exam: Present: soft. Absent: tenderness Results - Labs CBC & BMP: 11/25/16 06:00 11/26/16 05:54 Quality Measures - VTE Contraindication to Pharmacological VTE Prophylaxis: Already on Theraputic Agent , No Prophylaxis Needed Specialty Discharge - Follow Up or Referrals Follow up with: Brice Messer MD [Physician] -
[2016-11-26] MEDS ORDERED: BISACODYL 5 MG TABLET PO PRN (11:20)
--- NOTE | 2016-11-26 12:04 | Order Completion Report ---
See report scanned to EMR
[2016-11-26] MEDS: ALUMINUM/MAGNES/SIMETH MAX STR 30 ML UDCUP PO PRN ×2 (12:07→18:04)
[2016-11-26] MEDS: FAMOTIDINE 20 MG TABLET PO SCH ×2 (12:07→21:36)
[2016-11-26] MEDS: ENOXAPARIN 40 MG/0.4 ML SYRINGE SUBCUT SCH (12:07)
[2016-11-26] MEDS: POLYETHYLENE GLYCOL POWDER 17 GM PACK PO SCH (12:07)
[2016-11-26] MEDS: VANCOMYCIN INJ 1,500 MG in SODIUM CHLORIDE 0.9% 500 ML IV SCH (14:01)
[2016-11-26] MEDS: SODIUM HYPOCHLORITE 0.25% IRRIG 473 ML BOTTLE TOP SCH ×2 (16:05)
--- NOTE | 2016-11-26 16:37 | Hospitalist Progress Note ---
Assessment and Plan (1) Infected decubitus ulcer Status: Acute Assessment and plan: s/p debridement, Continue vancomycin and rocephin, Dr. Jacobson has added clindamycin Current Visit: Yes Qualifiers: Pressure ulcer stage: unstageable Qualified Code(s): L89.95 - Pressure ulcer of unspecified site, unstageable; L08.9 - Local infection of the skin and subcutaneous tissue, unspecified; L08.9 - Local infection of the skin and subcutaneous tissue, unspecified (2) History of pulmonary embolism Status: Chronic Assessment and plan: Chest CT and venous Dopplers negative for PE or DVT at this time we will do DVT prophylaxis Lovenox only Current Visit: No (3) Gait disorder Status: Acute Assessment and plan: Due to peripheral neuropathy from diabetes and B12 deficiency continue B12 injections. This is day number 05/20 Current Visit: Yes (4) Atrial fibrillation Status: Acute Assessment and plan: Currently in sinus rhythm, continue amiodarone, continue DVT Lovenox only due to anemia Current Visit: No (5) Diabetes mellitus Status: Inactive Assessment and plan: BS still high, lantus increased to 35 units Current Visit: Yes (6) Cardiomyopathy Status: Chronic Assessment and plan: Echocardiogram 20% continue Lasix IV Current Visit: Yes (7) Acute blood loss anemia Status: Acute Assessment and plan: hgb stable for now Current Visit: Yes (8) Hypomagnesemia Status: Acute Assessment and plan: Replacing Current Visit: Yes Hospitalist: Subjective Interval history: Patient is still having a lot of GERD pain. We will add Pepcid to her regimen. Her wound pain she feels is controlled. Granddaughter at bedside. Still in awaiting insurance approval Exam - Constitutional Vitals: Period Temp Pulse Resp BP Sys/Contreras Pulse Ox Last 24 Hr 97.6 F-98.5 F 54-65 16-18 118-147/52-77 93-97 Exam: Heart Rate-[RRR] Lungs-[CTAB] GI-[+bs soft, NT] Ext-trace edema] Neuro [Motor 4/5 bedridden, [alert and oriented times 3] Skin not observed today psych [normal mood and flat affect] General [no acute distress] Results - Labs CBC & BMP: 11/25/16 06:00 11/26/16 05:54 Lab Results: I have reviewed the past 24 hour labs Quality Measures - VTE Contraindication to Pharmacological VTE Prophylaxis: Already on Theraputic Agent , No Prophylaxis Needed Specialty Discharge - Follow Up or Referrals Follow up with: Brice Messer MD [Physician] -
[2016-11-26] MEDS: SILVER SULFADIAZINE 1% CREAM 400 GM JAR TOP SCH (16:50)
--- NOTE | 2016-11-26 18:54 | Cardiology Progress Note ---
Assessment and Plan (1) Cardiomyopathy Status: Chronic Assessment and plan: Initial assessment and plan November 21, 2016: Xarelto is on hold in anticipation of surgery Try to have her off the Xarelto as short as is possible to reduce her risk of having a stroke. She has multiple risk factors for stroke Restart amiodarone unless you know the reason not to Check EKG in the a.m. I will follow along with you. Assessment and plan November 22, 2016: No chest pain or shortness breath To have debridement of wounds today I discussed with the patient and would restart the Xarelto after the surgery, possibly tomorrow I'll continue to follow closely postop, Watch for any signs or symptoms of bleeding. Assessment and plan November 24, 2016: No chest pain or shortness of breath On DVT prophylaxis Lovenox With her history of known PEs, would want her back on Xarelto whenever Dr. Jacobson says is okay to do so. Await Dr. Jacobson's restarting the Xarelto. Potassium remains low. We will give some additional oral potassium., 40 mg p.o. now 11/26/16: No anginal or heart failure Holding Xarelto for now For more surgery Monday Patient has some heartburn.--Differential diagnosis would include heartburn versus CAD Evaluated the EKG-no change, no ischemia We will give Maalox 30 cc p.o. now and 4 times daily as needed heartburn Follow carefully Current Visit: Yes (2) Paroxysmal atrial fibrillation Status: Chronic Current Visit: No (3) History of pulmonary embolism Status: Chronic Current Visit: No (4) Diabetes mellitus Status: Inactive Current Visit: Yes (5) Hypertension Status: Chronic Current Visit: Yes Cardiology - PN: Subj Interval history: No chest pain or shortness of breath Exam (Progress Note) - Constitutional Vitals: Period Temp Pulse Resp BP Sys/Contreras Pulse Ox Last 24 Hr 97.6 F-98.5 F 54-67 16-18 118-147/52-77 93-97 Exam: General appearance: no acute distress, over weight - Head Head exam: Absent: abrasion, hematoma - Eye Eye exam: Absent: periorbital swelling, laceration to eyelids Pupils: Present: SHAJI - Respiratory Respiratory exam: Present: clear to auscultation bilaterally. Absent: accessory muscle use, chest wall tenderness - Cardiovascular Cardiovascular exam: Present: regular rate and rhythm. Absent: systolic murmur - GI/Abdominal GI/Abdominal exam: Present: normal bowel sounds, soft. Absent: distended, tenderness - Extremities Exam Extremities exam: Present: normal capillary refill, edema (1+ to bilateral lower extremities), edema to right hand - Neurological Exam Neurological exam: Present: alert, oriented X3 - Psychiatric Psychiatric exam: Present: normal affect, normal mood - Skin Skin exam: Present: warm, dry Result/EKG - Labs CBC & BMP: 11/25/16 06:00 11/26/16 05:54 Lab Results: I have reviewed the past 24 hour labs Labs: Laboratory Results - last 24 hr 11/25/16 11/26/16 11/26/16 20:50 05:54 07:14 Sodium 140 Potassium 4.2 Chloride 105 Carbon Dioxide 29 Anion Gap 10.2 BUN 6 L Creatinine 0.40 L GFR Calculation 146 BUN/Creatinine Ratio 15.00 Glucose 121 H POC Glucose 253 H 205 H Calculated Osmolality 277.4 Calcium 7.3 L Vancomycin Trough 11/26/16 11/26/16 11/26/16 12:40 12:44 15:32 Sodium Potassium Chloride Carbon Dioxide Anion Gap BUN Creatinine GFR Calculation BUN/Creatinine Ratio Glucose POC Glucose 235 H 241 H Calculated Osmolality Calcium Vancomycin Trough 8.8 L - EKG EKG results: interpreted by me Quality Measures - VTE Contraindication to Pharmacological VTE Prophylaxis: Already on Theraputic Agent , No Prophylaxis Needed Specialty Discharge - Follow Up or Referrals Follow up with: Brice Messer MD [Physician] -
[2016-11-26] MEDS: INSULIN GLARGINE 100 UNIT/ML SUBCUT SCH (21:38)
[2016-11-27] MEDS: VANCOMYCIN INJ 1,500 MG in SODIUM CHLORIDE 0.9% 500 ML IV SCH ×2 (05:50→18:38)
[2016-11-27 07:04] LABS: Basophils % 0.3 % (0.0-0.8); Eosinophils # 0.1 10*3/uL (0.0-0.87); Eosinophils % 1.4 % (0.00-10.9); Hematocrit 29.6 VOL% (35.7-47.0); Hemoglobin 9.3 GM/DL (12.0-16.0); Immature Granulocytes % 1.4 %; Immature Granulocytes Absolute 0.09 #; Lymphocytes # 1.1 10*3/uL (1.4-4.0); Lymphocytes % 16.1 % (21.3-54.2); Mean Corpuscular HGB Conc 31.4 GM/DL (32-36); Mean Corpuscular Hemoglobin 29 PG (27-34); Mean Corpuscular Volume 91.6 FL (87-102); Mean Platelet Volume 9.9 FL (9.6-12.0); Monocytes # 0.5 10*3/uL (0.11-0.8); Monocytes % 7.4 % (1.7-12.7); Neutrophils # 4.8 10*3/uL (1.4-7.4); Neutrophils % 73.4 % (38.7-73.9); Platelet Count 248 T/CUMM (130-400); Red Blood Count 3.23 MC/CUMM (3.8-5.5); Red Cell Distribution Width 16.8 % (9.3-17.3); White Blood Count 6.6 T/CUMM (4-12)
[2016-11-27 07:15] LABS: INR 1.1; PT Patient Result 11.5 SECS
[2016-11-27 07:40] LABS: Albumin 1.5 G/DL (3.4-5.0); Bilirubin,Total 0.7 MG/DL (0.2-1.0); Calcium 7.7 MG/DL (8.5-10.1); Osmolality,Calculated 271.7 MOS/KG (273-304); Potassium 4.2 MMOL/L (3.5-5.1); Total Protein 5.9 G/DL (6.4-8.3)
[2016-11-27] MEDS: INSULIN REGULAR 100 UNIT/ML SUBCUT SCH ×8 (07:55→21:06)
[2016-11-27] MEDS: CYANOCOBALAMIN 1000 MCG/1 ML VIAL SUBCUT SCH (09:01)
[2016-11-27] MEDS: FUROSEMIDE 20 MG/2 ML VIAL IV SCH (09:01)
[2016-11-27] MEDS: POTASSIUM CHLORIDE 10 MEQ TABLET PO SCH (09:02)
[2016-11-27] MEDS: FAMOTIDINE 20 MG TABLET PO SCH ×2 (09:02→21:04)
[2016-11-27] MEDS: LOSARTAN 25 MG TABLET PO SCH (09:02)
[2016-11-27] MEDS: PANTOPRAZOLE 40 MG TABLET PO SCH (09:02)
[2016-11-27] MEDS: AMIODARONE 200 MG TABLET PO SCH ×2 (09:03→21:04)
[2016-11-27] MEDS: MAGNESIUM OXIDE 400 MG TABLET PO SCH ×2 (09:03→21:05)
[2016-11-27] MEDS: POLYETHYLENE GLYCOL POWDER 17 GM PACK PO SCH (09:04)
[2016-11-27] MEDS: SODIUM HYPOCHLORITE 0.25% IRRIG 473 ML BOTTLE TOP SCH ×2 (09:04)
[2016-11-27] MEDS: SILVER SULFADIAZINE 1% CREAM 400 GM JAR TOP SCH (09:12)
[2016-11-27] MEDS: ENOXAPARIN 40 MG/0.4 ML SYRINGE SUBCUT SCH (09:32)
--- NOTE | 2016-11-27 10:28 | General Surgery Progress Note ---
Assessment and Plan (1) Infected decubitus ulcer Status: Acute Assessment and plan: 11/26/2016. Multiple infected decubitus ulcers of bilateral hips and bilateral ischia. She is currently on 3 antibiotics, which gives her coverage for all organisms we have currently reported. We may be able to taper this somewhat, and I will speak with Dr. Jacobson about narrowing this. We are currently planning to return to surgery on Monday for debridement of the right hip and additional debridement of the left hip. She and her family seem to understand and have no further questions at this time. She also did complain of some "indigestion" after eating sausage. Upon questioning, she says that she has this every time she eats sausage and is usually relieved by [id number] antacids. She says that she has been given something for the indigestion today and at this point it has not relieved it. On further questioning, she denies any other food intolerances, specifically fatty or fried food intolerances, denies right upper quadrant pain, nausea vomiting, bloating, or other symptoms consistent with gallbladder disease. I suggested we obtain ultrasound of the abdomen to rule out gallbladder pathology, but the patient refuses that at this time. Will continue her Protonix and to observe for problems and if she has persistent food intolerance, we may need to pursue this more aggressively. 11/27/2016. Infected decubitus ulcers of the hips and ischial areas. We are planning for OR debridement of bilateral hips tomorrow. Will consider the possibility of type and match for 2 units of PRBCs, in anticipation of additional blood loss. This is discussed with the patient and her daughter, and they are in agreement with the plan of going ahead with surgery. We will adjust her antibiotics appropriately. Current Visit: Yes Qualifiers: Pressure ulcer stage: unstageable Qualified Code(s): L89.95 - Pressure ulcer of unspecified site, unstageable; L08.9 - Local infection of the skin and subcutaneous tissue, unspecified; L08.9 - Local infection of the skin and subcutaneous tissue, unspecified Subjective Patient reports: Present: no new complaints. Absent: nausea, vomiting (She is tolerating her breakfast this morning without nausea or indigestion. She denies pain in her daughter is at the bedside to confirm this.) Exam - Constitutional Vitals: Period Temp Pulse Resp BP Sys/Contreras Pulse Ox Last 24 Hr 97.7 F-98.5 F 58-68 15-18 121-147/58-77 94-98 General appearance: no acute distress - Respiratory Respiratory exam: Present: rhonchi - Cardiovascular Cardiovascular exam: Present: RRR - GI/Abdominal GI/Abdominal exam: Present: hypoactive bowel sounds, soft - Extremities Exam Extremities exam: Present: other (Her wounds are bandaged and no drainage strikethrough is seen; dressings were not removed /wounds examined today.) Results - Labs CBC & BMP: 11/27/16 05:42 11/27/16 05:42 Lab Results: I have reviewed the past 24 hour labs (H&H is slightly low at 9.3/ 29.6; since we are prepping for additional debridement tomorrow, I will discuss this with Dr. Jacobson and consider whether we need to type and match for 2 units of PRBCs.) Quality Measures - VTE Contraindication to Pharmacological VTE Prophylaxis: Already on Theraputic Agent , No Prophylaxis Needed Specialty Discharge - Follow Up or Referrals Follow up with: Brice Messer MD [Physician] -
--- NOTE | 2016-11-27 11:38 | Hospitalist Progress Note ---
Assessment and Plan (1) Infected decubitus ulcer Status: Acute Assessment and plan: s/p debridement on 11/22/16 and repeat debridement in a.m., Continue vancomycin and rocephin, Dr. Jacobson is added clindamycin. Monitor for C. difficile Current Visit: Yes Qualifiers: Pressure ulcer stage: unstageable Qualified Code(s): L89.95 - Pressure ulcer of unspecified site, unstageable; L08.9 - Local infection of the skin and subcutaneous tissue, unspecified; L08.9 - Local infection of the skin and subcutaneous tissue, unspecified (2) History of pulmonary embolism Status: Chronic Assessment and plan: Chest CT and venous Dopplers negative for PE or DVT at this time we will do DVT prophylaxis Lovenox only Current Visit: No (3) Gait disorder Status: Acute Assessment and plan: Due to peripheral neuropathy from diabetes and B12 deficiency continue B12 injections. This is day number 06/19 Current Visit: Yes (4) Atrial fibrillation Status: Acute Assessment and plan: continue amiodarone, continue DVT Lovenox only due to anemia DC monitor Current Visit: No (5) Diabetes mellitus Status: Inactive Assessment and plan: BS still high, continue Lantus but increase mealtime insulin, will add Metformin Current Visit: Yes (6) Cardiomyopathy Status: Chronic Assessment and plan: Echocardiogram 20% continue lasix Current Visit: Yes (7) Acute blood loss anemia Status: Acute Assessment and plan: hgb stable for now Current Visit: Yes (8) Hypomagnesemia Status: Acute Assessment and plan: resolved Current Visit: Yes Hospitalist: Subjective Interval history: Ms. Ricketts is eating well and in good spirits. We are planning her final debridement by Dr. Jacobson tomorrow. Exam - Constitutional Vitals: Period Temp Pulse Resp BP Sys/Contreras Pulse Ox Last 24 Hr 97.7 F-98.5 F 58-68 15-18 121-147/58-77 94-98 Exam: Heart Rate-[RRR] Lungs-[CTAB] GI-[+bs soft, NT] Ext-trace edema] Neuro [Motor 4/5 bedridden, [alert and oriented times 3] Skin not observed today psych [normal mood and flat affect] General [no acute distress] Results - Labs CBC & BMP: 11/27/16 05:42 11/27/16 05:42 Lab Results: I have reviewed the past 24 hour labs Quality Measures - VTE Contraindication to Pharmacological VTE Prophylaxis: Already on Theraputic Agent , No Prophylaxis Needed Specialty Discharge - Follow Up or Referrals Follow up with: Brice Messer MD [Physician] -
--- NOTE | 2016-11-27 15:06 | Cardiology Progress Note ---
Assessment and Plan (1) Cardiomyopathy Status: Chronic Assessment and plan: Initial assessment and plan November 21, 2016: Xarelto is on hold in anticipation of surgery Try to have her off the Xarelto as short as is possible to reduce her risk of having a stroke. She has multiple risk factors for stroke Restart amiodarone unless you know the reason not to Check EKG in the a.m. I will follow along with you. Assessment and plan November 22, 2016: No chest pain or shortness breath To have debridement of wounds today I discussed with the patient and would restart the Xarelto after the surgery, possibly tomorrow I'll continue to follow closely postop, Watch for any signs or symptoms of bleeding. Assessment and plan November 24, 2016: No chest pain or shortness of breath On DVT prophylaxis Lovenox With her history of known PEs, would want her back on Xarelto whenever Dr. Jacobson says is okay to do so. Await Dr. Jacobson's restarting the Xarelto. Potassium remains low. We will give some additional oral potassium., 40 mg p.o. now 11/26/16: No anginal or heart failure Holding Xarelto for now For more surgery Monday Patient has some heartburn.--Differential diagnosis would include heartburn versus CAD Evaluated the EKG-no change, no ischemia We will give Maalox 30 cc p.o. now and 4 times daily as needed heartburn Follow carefully 11/27/16: Her heartburn is better with the Maalox. EKG showed no change. I believe it was GI related. She had this heartburn in spite of being on Pepcid and pantoprazole We will keep her head of the bed elevated 35 or greater We will add a few days of Carafate 1 g liquid twice daily She will be for her surgery tomorrow We will restart the NOAC when safe to do so from the surgery standpoint. The sooner the better from my standpoint, to reduce her risk of having a stroke or systemic embolization Current Visit: Yes (2) Paroxysmal atrial fibrillation Status: Chronic Current Visit: No (3) History of pulmonary embolism Status: Chronic Current Visit: No (4) Diabetes mellitus Status: Inactive Current Visit: Yes (5) Hypertension Status: Chronic Current Visit: Yes Cardiology - PN: Subj Interval history: No chest pain or shortness of breath Exam (Progress Note) - Constitutional Vitals: Period Temp Pulse Resp BP Sys/Contreras Pulse Ox Last 24 Hr 97.7 F-98.5 F 58-68 15-18 121-148/58-71 95-98 Exam: General appearance: no acute distress, over weight - Head Head exam: Absent: abrasion, hematoma - Eye Eye exam: Absent: periorbital swelling, laceration to eyelids Pupils: Present: SHAJI - Respiratory Respiratory exam: Present: clear to auscultation bilaterally. Absent: accessory muscle use, chest wall tenderness - Cardiovascular Cardiovascular exam: Present: regular rate and rhythm. Absent: systolic murmur - GI/Abdominal GI/Abdominal exam: Present: normal bowel sounds, soft. Absent: distended, tenderness - Extremities Exam Extremities exam: Present: normal capillary refill, edema (1+ to bilateral lower extremities), edema to right hand - Neurological Exam Neurological exam: Present: alert, oriented X3 - Psychiatric Psychiatric exam: Present: normal affect, normal mood - Skin Skin exam: Present: warm, dry Result/EKG - Labs CBC & BMP: 11/27/16 05:42 11/27/16 05:42 Lab Results: I have reviewed the past 24 hour labs Labs: Laboratory Results - last 24 hr 11/26/16 11/26/16 11/27/16 15:32 20:25 05:42 WBC 6.6 RBC 3.23 L Hgb 9.3 L Hct 29.6 L MCV 91.6 MCH 29 MCHC 31.4 L RDW 16.8 Plt Count 248 MPV 9.9 Neut % (Auto) 73.4 Lymph % (Auto) 16.1 L Wayne % (Auto) 7.4 Eos % (Auto) 1.4 Baso % (Auto) 0.3 Neut # (Auto) 4.8 Lymph # (Auto) 1.1 L Wayne # (Auto) 0.5 Eos # (Auto) 0.1 Baso # (Auto) 0.0 Immature Gran % 1.4 Nucleated RBC % 0.0 Immature Gran # 0.09 Nucleated RBCs # 0.00 Immature Plt Fraction 0.0 INR PT Patient/Control Mix Circ Anticoag PTT Sodium Potassium Chloride Carbon Dioxide Anion Gap BUN Creatinine GFR Calculation BUN/Creatinine Ratio Glucose POC Glucose 241 H 230 H Calculated Osmolality Calcium Magnesium Total Bilirubin AST ALT Alkaline Phosphatase Total Protein Albumin Globulin Albumin/Globulin Ratio Blood Type Antibody Screen 11/27/16 11/27/16 11/27/16 05:42 05:42 05:42 WBC RBC Hgb Hct MCV MCH MCHC RDW Plt Count MPV Neut % (Auto) Lymph % (Auto) Wayne % (Auto) Eos % (Auto) Baso % (Auto) Neut # (Auto) Lymph # (Auto) Wayne # (Auto) Eos # (Auto) Baso # (Auto) Immature Gran % Nucleated RBC % Immature Gran # Nucleated RBCs # Immature Plt Fraction INR 1.1 PT Patient/Control Mix 11.5 Circ Anticoag PTT 30.0 D Sodium 138 Potassium 4.2 Chloride 102 Carbon Dioxide 29 Anion Gap 11.2 BUN 5 L Creatinine 0.40 L GFR Calculation 147 BUN/Creatinine Ratio 12.00 Glucose 95 POC Glucose Calculated Osmolality 271.7 L Calcium 7.7 L Magnesium Total Bilirubin 0.70 AST 17 ALT 9 L Alkaline Phosphatase 72 Total Protein 5.9 L Albumin 1.5 L Globulin 4.4 H Albumin/Globulin Ratio 0.3 L Blood Type A POSITIVE Antibody Screen Negative 11/27/16 11/27/16 11/27/16 05:42 07:43 11:48 WBC RBC Hgb Hct MCV MCH MCHC RDW Plt Count MPV Neut % (Auto) Lymph % (Auto) Wayne % (Auto) Eos % (Auto) Baso % (Auto) Neut # (Auto) Lymph # (Auto) Wayne # (Auto) Eos # (Auto) Baso # (Auto) Immature Gran % Nucleated RBC % Immature Gran # Nucleated RBCs # Immature Plt Fraction INR PT Patient/Control Mix Circ Anticoag PTT Sodium Potassium Chloride Carbon Dioxide Anion Gap BUN Creatinine GFR Calculation BUN/Creatinine Ratio Glucose POC Glucose 152 H 229 H Calculated Osmolality Calcium Magnesium 1.9 Total Bilirubin AST ALT Alkaline Phosphatase Total Protein Albumin Globulin Albumin/Globulin Ratio Blood Type Antibody Screen - EKG EKG results: interpreted by me Quality Measures - VTE Contraindication to Pharmacological VTE Prophylaxis: Already on Theraputic Agent , No Prophylaxis Needed Specialty Discharge - Follow Up or Referrals Follow up with: Brice Messer MD [Physician] -
[2016-11-27] MEDS: SUCRALFATE 1 GM/10 ML UDCUP PO SCH (17:45)
[2016-11-27] MEDS: metFORMIN 500 MG TABLET PO SCH (17:46)
[2016-11-27] MEDS: INSULIN GLARGINE 100 UNIT/ML SUBCUT SCH (21:05)
[2016-11-28] MEDS: VANCOMYCIN INJ 1,500 MG in SODIUM CHLORIDE 0.9% 500 ML IV SCH ×2 (05:30→21:11)
[2016-11-28] MEDS ORDERED: CLINDAMYCIN INJ 50 ML IV ONE (08:34)
--- NOTE | 2016-11-28 09:37 | Cardiology Progress Note ---
Assessment and Plan (1) Cardiomyopathy Status: Chronic Assessment and plan: 1. 71-year-old high BMI BF with now controlled hypertension, paroxysmal atrial fibrillation, previous history of pulmonary emboli (has IVC filter), preop for repeat debridement of wounds later today. 2. Continue amiodarone to reduce risk of recurrence of her atrial fibrillation. 3. Severely reduced LV systolic function with ejection fraction estimated be 20 %; she is euvolemic on exam today but will be prone to volume overload. 4. Resume anticoagulation after surgery when okay with the surgical service; consider changing Xarelto to Eliquis as it seems to have less bleeding associated with it, and she required blood transfusion earlier this admission. There is no evidence of active bleeding now. 5. Albumin of 1.5 is noted/poor prognostic sign. Current Visit: Yes (2) Hypertension Status: Chronic Current Visit: Yes (3) Atrial fibrillation Status: Acute Current Visit: No (4) Bilateral pulmonary embolism Status: Acute Current Visit: No Cardiology - PN: Subj Interval history: I talked Mr. Ricketts the preoperative area. She has had no shortness of breath chest pain dizziness or nausea today. She feels fine and her debridement is being planned for later today. She has no complaints Exam (Progress Note) - Constitutional Vitals: Period Temp Pulse Resp BP Sys/Contreras Pulse Ox Last 24 Hr 97.3 F-98.3 F 59-72 16-19 116-148/45-65 96-98 General appearance: no acute distress, over weight - Head Head exam: Present: normal inspection, normocephalic, atraumatic - Respiratory Respiratory exam: Present: clear to auscultation bilaterally. Absent: stridor, wheezes - Cardiovascular Cardiovascular exam: Present: regular rate and rhythm. Absent: diastolic murmur , rubs - GI/Abdominal GI/Abdominal exam: Present: soft. Absent: tenderness - Extremities Exam Extremities exam: Present: edema, other (Feet are cool) - Neurological Exam Neurological exam: Present: alert, oriented X3 - Psychiatric Psychiatric exam: Present: normal affect Result/EKG - Labs CBC & BMP: 11/27/16 05:42 11/27/16 05:42 Labs: Laboratory Results - last 24 hr 11/27/16 11/27/16 11/27/16 11:48 16:18 20:03 POC Glucose 229 H 263 H 172 H 11/28/16 07:27 POC Glucose 89 Quality Measures - VTE Contraindication to Pharmacological VTE Prophylaxis: Already on Theraputic Agent , No Prophylaxis Needed Specialty Discharge - Follow Up or Referrals Follow up with: Brice Messer MD [Physician] -
[2016-11-28] MEDS: INSULIN REGULAR 100 UNIT/ML SUBCUT SCH ×8 (10:18→21:34)
[2016-11-28] MEDS: metFORMIN 500 MG TABLET PO SCH ×2 (10:19→18:08)
[2016-11-28] MEDS: ENOXAPARIN 40 MG/0.4 ML SYRINGE SUBCUT SCH (10:21)
[2016-11-28] MEDS: CYANOCOBALAMIN 1000 MCG/1 ML VIAL SUBCUT SCH (10:29)
[2016-11-28] MEDS ORDERED: CLINDAMYCIN INJ 900 MG in PREMIX 1 EACH IV ONE (11:26)
--- NOTE | 2016-11-28 12:16 | Hospitalist Progress Note ---
Assessment and Plan (1) Infected decubitus ulcer Status: Acute Assessment and plan: Impression: 1. Multiple pressure ulcers 2. Chronic systolic congestive heart failure 3. Atrial fibrillation Plan: Await debridement of pressure ulcers. This is planned for later today. Continue to work on disposition per case management. This note was completed using [employer] voice recognition software. There may be railway shunter errors as a result. Current Visit: Yes Qualifiers: Pressure ulcer stage: unstageable Qualified Code(s): L89.95 - Pressure ulcer of unspecified site, unstageable; L08.9 - Local infection of the skin and subcutaneous tissue, unspecified; L08.9 - Local infection of the skin and subcutaneous tissue, unspecified Hospitalist: Subjective Interval history: Follow-up multiple pressure ulcers, chronic systolic congestive heart failure, atrial fibrillation. The patient is scheduled for debridement of the ulcers today. It may be a disposition problem, as she has already been refused by 1 LT[facility]. We are waiting to hear from the other one in town she is hungry, and ready for surgery so that she can have something to eat. Wound cultures are growing numerous different gram-positive cocci and gram-negative rods. Exam - Constitutional Vitals: Period Temp Pulse Resp BP Sys/Contreras Pulse Ox Last 24 Hr 97.3 F-98.6 F 59-72 16-19 116-135/45-69 95-98 Vital signs are noted above. Heart is irregular with a soft systolic murmur. Chest is clear. She is awake and alert. Results - Labs CBC & BMP: 11/27/16 05:42 11/27/16 05:42 Lab Results: I have reviewed the past 24 hour labs Quality Measures - VTE Contraindication to Pharmacological VTE Prophylaxis: Already on Theraputic Agent , No Prophylaxis Needed Specialty Discharge - Follow Up or Referrals Follow up with: Brice Messer MD [Physician] - 12/12/16 10:30 am
[2016-11-28] MEDS: AMIODARONE 200 MG TABLET PO SCH ×2 (13:59→21:11)
[2016-11-28] MEDS: SODIUM HYPOCHLORITE 0.25% IRRIG 473 ML BOTTLE TOP SCH ×2 (13:59)
[2016-11-28] MEDS: SUCRALFATE 1 GM/10 ML UDCUP PO SCH ×2 (13:59→18:08)
[2016-11-28] MEDS: FAMOTIDINE 20 MG TABLET PO SCH ×2 (14:00→21:11)
[2016-11-28] MEDS: MAGNESIUM OXIDE 400 MG TABLET PO SCH ×2 (14:00→21:11)
[2016-11-28] MEDS: SILVER SULFADIAZINE 1% CREAM 400 GM JAR TOP SCH (14:53)
--- NOTE | 2016-11-28 17:10 | Operative Note ---
Date of procedure: 11/28/16 Pre-op diagnosis: Multiple decubitus ulcers Post-op diagnosis: same Procedure: Operative note: Preoperative diagnosis: 1. Stage IV decubitus ulcer left hip 2. Stage IV decubitus ulcer left ischium 3. Stage IV decubitus ulcer right ischium 4. Stage III decubitus ulcer sacrum 5. Stage III decubitus ulcer left buttocks 6. Unstageable right hip decubitus ulcer Postoperative diagnosis: Same except for 6. Stage III decubitus ulcer right hip Surgeon Dr. Jacobson Floor Tech Char Hernadez, BROADCAST TECHNICIAN ACNP Anesthesia General tracheal. Procedure: 1. Excisional debridement of ulcer of the left hip 2. Excisional debridement of ulcer left ischium 3. Excisional debridement of ulcer right ischium 4. Excisional debridement of ulcer sacrum 5. Excisional debridement of ulcer left buttocks 6. Excisional debridement of ulcer right hip Brief history 71-year-old -Chinese female who is become pretty much bedridden and not walking and ambulating even though she has not had a stroke. Somehow they think it may be related to vitamin B12 deficiency. Unfortunately she developed multiple large decubitus ulcers that we have recently debrided on the left side to try to get this process under control with a large amount necrotic tissue present. We still have some tissue that is necrotic in the left hip and the initial area that we need to clean up a little bit more as well as trying to get the right hip ulcer debrided. We brought her back at this time for these procedures. Procedure: With patient in the right decubitus position prepped and draped in sterile fashion timeout and antibiotics completed we began to get some measurements at this time. Left hip is 11 x 11.9 x 1.9 cm, left ischium 3.9 x 8.5 x 5.5, right ischium 2.6 x 0.5 x 2.9, sacrum 3.4 x 2 x 0.6, left buttocks 4.1 x 3.8 x 0 cm. With that completed then we began to extensively debride the areas. We took the sacral area just to the light debridement of the subtenons tissue on the surface and base of this ulcer removing the fatty tissue to get a clean bleeding base as well as trim the skin. When we finished we had a wound that is 3.5 x 2.1 x 0.6 cm We next moved to the left buttocks which is a small wound that we just tangentially debrided the fat and skin off the base of this wound bed. It now measures 4.2 x 4 x 0.2 cm We next moved to the right ischium were began to take the scissors and debride the skin edge the deep subcutaneous fatty tissue down to the fascia without exposing the bone at this time. We debrided some muscle in the deep part of the wound bed and then debrided the fatty tissue in the deep as well as the fascia near and around the bone. Bleeding was controlled electrocauterization. We now have a wound that is 9.9 x 3.5 x 4.8 cm. Now moving over to the left ischium we begin debridement of skin subtenons tissue a little bit of fatty tissue some muscle in the very base deep part of the wound bed as well as some fascia over where the bone was at. We did find some necrotic tissue and additionally clean up down in the deep part of the wound bed but otherwise was in pretty good shape. When we finished we now have a wound that is 4.5 x 11 x 5 cm. Next moved over to the left hip ulcer which has still some residual necrotic deep tissue in it. I begin to trim the skin subcutaneous tissue out of this particular necrotic area then got down to where he was necrotic muscle I begin to debride the necrotic muscle out of this wound base to clean it up as best I could get it. We debrided with knife electrocauterization and will can try to control bleeding with electrocauterization. Debrided fat fascia and got down to the fascia over the bone did not expose the bone we got down to the base of it. We cleaned this up until we had pretty good looking tissue all way around with the fascia and fatty tissue debrided. Muscle been debrided and it was clean now. We now have a wound that is 12 x 14 x 5 cm in size. With those debridements completed then we had to put a dressing on these particular wounds and then flipped the patient over so that we can get to the ulcer on the right hip. At that point in time we now have a pre-debridement measurement of this right hip of 6.0 x 2 x 0.5 cm. At that point time I took a knife begin to debride the skin the deep subcutaneous tissue and necrotic fatty tissue in this area down through the skin and subcutaneous tissue. Tolerated this well bleeding was controlled with cauterization. Found not much necrotic tissue in this area just mostly superficial with a deep tissue looking pretty clean. We washed irrigated. Ulcer is now measuring 6.5 x 4 x 3 cm. We now put a dressing on the right hip ulcer during the patient took patient recovery room. Estimated blood loss 60 cc Sponge count correct 2 Drains none Complications none Condition stable satisfactory Anesthesia: BEA Surgeon / Physician: Ricardo Jacobson Floor Tech: Char Hernadez Estimated blood loss: other (50 cc) Specimens: none sent Condition: stable Disposition: floor Results - Labs CBC & BMP: 11/27/16 05:42 11/27/16 05:42 Discharge Plan - Discharge Medications No Action Metoprolol Tartrate Tab [Lopressor Tab] 50 mg PO BID Losartan [Cozaar] 25 mg PO DAILY #30 caplet Magnesium Oxide 400 mg PO BID #60 caplet Rivaroxaban [Xarelto] 15 mg PO BID W/MEALS #29 tablet Azithromycin [Azithromycin Z Pack] 250 mg PO DIRECTED #1 packet HYDROcodone/ACETAMIN 5-325 [[place] 5-325] 1 tablet PO Q6H PRN #14 tablet PRN Reason: knee pain Amiodarone Tab [Cordarone Tab] 200 mg PO BID - Follow Up or Referral Follow Up: Brice Messer MD [Physician] - 12/12/16 10:30 am - Forms/Instructions
--- NOTE | 2016-11-28 17:11 | Anesthesia Post-Op ---
Anesthesia Post OP - Post Ansesthetic Evaluation Patient seen in post op: Yes Resp: within normal limits CV: within normal limits Mental: within normal limits Temp: within normal limits [id number]: within normal limits Nausea and Vomiting: within normal limits Pain: within normal limits
[2016-11-28] MEDS ORDERED: SEVOFLURANE 1 UNIT/15 MINUTE INH ONE (17:14)
[2016-11-28] MEDS ORDERED: GLYCOPYRROLATE 0.4 MG/2 ML VIAL ONE (17:15)
[2016-11-28] MEDS ORDERED: fentaNYL 100 MCG/2 ML VIAL ONE (17:15)
[2016-11-28] MEDS ORDERED: ONDANSETRON 4 MG/2 ML VIAL ONE (17:15)
[2016-11-28] MEDS ORDERED: ETOMIDATE 20 MG/10 ML VIAL IV ONE (17:15)
[2016-11-28] MEDS ORDERED: NEOSTIGMINE 10 MG/10 ML VIAL ONE (17:15)
[2016-11-28] MEDS ORDERED: ROCURONIUM 100 MG/10 ML VIAL IV ONE (17:15)
[2016-11-28] MEDS ORDERED: ONDANSETRON 4 MG/2 ML VIAL IV PRN (17:18)
[2016-11-28] MEDS ORDERED: HYDROmorphone 2 MG/1 ML VIAL IV PRN (17:18)
[2016-11-28] MEDS ORDERED: LACTATED RINGERS 1,000 ML IV SCH (17:30)
[2016-11-28] MEDS: POTASSIUM CHLORIDE 10 MEQ TABLET PO SCH (18:05)
[2016-11-28] MEDS: LOSARTAN 25 MG TABLET PO SCH (18:05)
[2016-11-28] MEDS: PANTOPRAZOLE 40 MG TABLET PO SCH (18:07)
[2016-11-28] MEDS: POLYETHYLENE GLYCOL POWDER 17 GM PACK PO SCH (18:07)
[2016-11-28] MEDS: FUROSEMIDE 20 MG TABLET PO SCH (18:22)
[2016-11-28] MEDS: SODIUM CHLORIDE 0.9% 1,000 ML IV SCH (18:22)
[2016-11-28] MEDS: INSULIN GLARGINE 100 UNIT/ML SUBCUT SCH (21:34)
[2016-11-28] MEDS: CLINDAMYCIN INJ 900 MG in PREMIX 1 EACH IV SCH (23:20)
[2016-11-29 05:28] LABS: Basophils % 0.2 % (0.0-0.8); Eosinophils # 0.1 10*3/uL (0.0-0.87); Eosinophils % 1.7 % (0.00-10.9); Hematocrit 25.8 VOL% (35.7-47.0); Hemoglobin 8.3 GM/DL (12.0-16.0); Immature Granulocytes % 0.6 %; Immature Granulocytes Absolute 0.03 #; Lymphocytes # 0.7 10*3/uL (1.4-4.0); Lymphocytes % 12.1 % (21.3-54.2); Mean Corpuscular HGB Conc 32.2 GM/DL (32-36); Mean Corpuscular Hemoglobin 30 PG (27-34); Mean Corpuscular Volume 92.1 FL (87-102); Monocytes # 0.4 10*3/uL (0.11-0.8); Monocytes % 7.4 % (1.7-12.7); Neutrophils # 4.3 10*3/uL (1.4-7.4); Platelet Count 226 T/CUMM (130-400); Red Cell Distribution Width 17.5 % (9.3-17.3); White Blood Count 5.4 T/CUMM (4-12)
[2016-11-29 06:01] LABS: Calcium 6.8 MG/DL (8.5-10.1); Osmolality,Calculated 277.7 MOS/KG (273-304); Potassium 3.8 MMOL/L (3.5-5.1)
[2016-11-29] MEDS: CLINDAMYCIN INJ 900 MG in PREMIX 1 EACH IV SCH (06:27)
[2016-11-29] MEDS: VANCOMYCIN INJ 1,500 MG in SODIUM CHLORIDE 0.9% 500 ML IV SCH (06:27)
[2016-11-29] MEDS: SODIUM CHLORIDE 0.9% 1,000 ML IV SCH (07:28)
[2016-11-29] MEDS: INSULIN REGULAR 100 UNIT/ML SUBCUT SCH ×4 (08:12→15:38)
[2016-11-29] MEDS: SUCRALFATE 1 GM/10 ML UDCUP PO SCH (08:12)
[2016-11-29] MEDS: POTASSIUM CHLORIDE 10 MEQ TABLET PO SCH (08:12)
[2016-11-29] MEDS: metFORMIN 500 MG TABLET PO SCH (08:12)
[2016-11-29] MEDS: ENOXAPARIN 40 MG/0.4 ML SYRINGE SUBCUT SCH ×2 (08:12→09:58)
[2016-11-29] MEDS: AMIODARONE 200 MG TABLET PO SCH (08:13)
[2016-11-29] MEDS: LOSARTAN 25 MG TABLET PO SCH (08:13)
[2016-11-29] MEDS: PANTOPRAZOLE 40 MG TABLET PO SCH (08:13)
[2016-11-29] MEDS: FAMOTIDINE 20 MG TABLET PO SCH (08:13)
[2016-11-29] MEDS: CYANOCOBALAMIN 1000 MCG/1 ML VIAL SUBCUT SCH (08:13)
[2016-11-29] MEDS: FUROSEMIDE 20 MG TABLET PO SCH (08:13)
[2016-11-29] MEDS: MAGNESIUM OXIDE 400 MG TABLET PO SCH (08:13)
[2016-11-29] MEDS: POLYETHYLENE GLYCOL POWDER 17 GM PACK PO SCH (08:14)
[2016-11-29] MEDS: SODIUM HYPOCHLORITE 0.25% IRRIG 473 ML BOTTLE TOP SCH ×2 (09:25→09:26)
[2016-11-29] MEDS: SILVER SULFADIAZINE 1% CREAM 400 GM JAR TOP SCH (09:36)
--- NOTE | 2016-11-29 09:38 | Cardiology Progress Note ---
Assessment and Plan (1) Cardiomyopathy Status: Chronic Assessment and plan: 1. 71-year-old high BMI BF with now controlled hypertension, paroxysmal atrial fibrillation, previous history of pulmonary emboli (has IVC filter), preop for repeat debridement of wounds later today. 2. Continue amiodarone to reduce risk of recurrence of her atrial fibrillation. 3. Severely reduced LV systolic function with ejection fraction estimated be 20 %; she is euvolemic on exam today but will be prone to volume overload. 4. Resume anticoagulation after surgery when okay with the surgical service; consider changing Xarelto to Eliquis as it seems to have less bleeding associated with it, and she required blood transfusion earlier this admission. There is no evidence of active bleeding now. 5. Albumin of 1.5 is noted/poor prognostic sign. November 29, 2016: 1. Mr. Ricketts is hemodynamically stable and doing well clinically status post debridement yesterday evening 2. Resume Xarelto when felt to be safe from a postoperative standpoint. It should be restarted 20 mg per day given her history of paroxysmal atrial fibrillation and PE nearly 6 months ago, and Lovenox should be discontinued when it started. 3. Severe cardiomyopathy as noted, although she appears to be euvolemic currently. 4. Reduce amiodarone 200 mg daily for maintenance therapy to promote normal sinus rhythm/avoid atrial fibrillation Current Visit: Yes (2) Hypertension Status: Chronic Current Visit: Yes (3) Atrial fibrillation Status: Acute Current Visit: No (4) Bilateral pulmonary embolism Status: Acute Current Visit: No Cardiology - PN: Subj Interval history: Mr. Ricketts denies shortness of breath or chest pain after her debridement yesterday evening. She is alert and reasonably oriented and appears to be at baseline. She has not had any apparent bleeding problems. She denies any dizziness, did not complain of any palpitations. Exam (Progress Note) - Constitutional Vitals: Period Temp Pulse Resp BP Sys/Contreras Pulse Ox Last 24 Hr 97.2 F-98.8 F 62-81 16-21 101-163/47-82 94-100 General appearance: no acute distress, over weight - Neck Neck exam: Present: normal inspection - Respiratory Respiratory exam: Present: clear to auscultation bilaterally. Absent: stridor, wheezes - Cardiovascular Cardiovascular exam: Present: regular rate and rhythm. Absent: diastolic murmur , rubs - GI/Abdominal GI/Abdominal exam: Present: soft. Absent: tenderness - Extremities Exam Extremities exam: Present: edema (Mild) - Neurological Exam Neurological exam: Present: alert - Psychiatric Psychiatric exam: Present: normal affect Result/EKG - Labs CBC & BMP: 11/29/16 05:15 11/29/16 05:15 Labs: Laboratory Results - last 24 hr 11/28/16 11/28/16 11/28/16 11:17 15:05 17:48 WBC RBC Hgb Hct MCV MCH MCHC RDW Plt Count MPV Neut % (Auto) Lymph % (Auto) [place] % (Auto) Eos % (Auto) Baso % (Auto) Neut # (Auto) Lymph # (Auto) [place] # (Auto) Eos # (Auto) Baso # (Auto) Immature Gran % Nucleated RBC % Immature Gran # Nucleated RBCs # Immature Plt Fraction Sodium Potassium Chloride Carbon Dioxide Anion Gap BUN Creatinine GFR Calculation BUN/Creatinine Ratio Glucose POC Glucose 85 103 Calculated Osmolality Calcium Vancomycin Trough 17.3 11/28/16 11/28/16 11/29/16 18:26 20:51 05:15 WBC 5.4 RBC 2.80 L Hgb 8.3 L Hct 25.8 L MCV 92.1 MCH 30 MCHC 32.2 RDW 17.5 H Plt Count 226 MPV 10.0 Neut % (Auto) 78.0 H Lymph % (Auto) 12.1 L [place] % (Auto) 7.4 Eos % (Auto) 1.7 Baso % (Auto) 0.2 Neut # (Auto) 4.3 Lymph # (Auto) 0.7 L [place] # (Auto) 0.4 Eos # (Auto) 0.1 Baso # (Auto) 0.0 Immature Gran % 0.6 Nucleated RBC % 0.0 Immature Gran # 0.03 Nucleated RBCs # 0.00 Immature Plt Fraction 0.0 Sodium Potassium Chloride Carbon Dioxide Anion Gap BUN Creatinine GFR Calculation BUN/Creatinine Ratio Glucose POC Glucose 69 L 89 Calculated Osmolality Calcium Vancomycin Trough 11/29/16 11/29/16 05:15 07:15 WBC RBC Hgb Hct MCV MCH MCHC RDW Plt Count MPV Neut % (Auto) Lymph % (Auto) [place] % (Auto) Eos % (Auto) Baso % (Auto) Neut # (Auto) Lymph # (Auto) [place] # (Auto) Eos # (Auto) Baso # (Auto) Immature Gran % Nucleated RBC % Immature Gran # Nucleated RBCs # Immature Plt Fraction Sodium 138 Potassium 3.8 Chloride 104 Carbon Dioxide 26 Anion Gap 11.8 BUN 6 L Creatinine 0.50 L GFR Calculation 136 BUN/Creatinine Ratio 12.00 Glucose 190 H POC Glucose 227 H Calculated Osmolality 277.7 Calcium 6.8 L Vancomycin Trough Quality Measures - VTE Contraindication to Pharmacological VTE Prophylaxis: Already on Theraputic Agent , No Prophylaxis Needed Specialty Discharge - Follow Up or Referrals Follow up with: Brice Messer MD [Physician] - 12/12/16 10:30 am
--- NOTE | 2016-11-29 10:14 | Discharge Summary ---
Hospital Course - Hospital Course Hospital Course: Discharge diagnosis: Multiple pressure ulcer Paroxysmal atrial fibrillation Chronic systolic congestive heart failure Pulmonary emboli The patient presented to the hospital with multiple pressure ulcers. She was seen by surgery, and underwent several debridement procedures. Cardiology assisted with management of her various cardiac diagnoses. She continued on IV antibiotics. She would benefit from ongoing wound care and rehab, and was accepted at specialty Hospital to continue current care. Medication reconciliation has been performed. Continue current diet. Activity as tolerated and prescribed by PT. Continue local wound care. This note was completed using [employer] voice recognition software. There may be supervisor television chassis repair errors as a result. Diagnosis - Discharge Diagnosis (1) Infected decubitus ulcer Status: Acute Specialty Discharge - Follow Up or Referrals Follow up with: Brice Messer MD [Physician] - 12/12/16 10:30 am Discharge Plan - Discharge Data Disposition: Disch/Xfer to [facility] Condition at Discharge: Stable Discharge Diet: advance to your usual diet Activity: resume usual activities as tolerated - Discharge Medications New Acetaminophen Tab [Tylenol Tab] 650 mg PO Q4H PRN #0 tablet PRN Reason: Fever, Headache, Mild Pain cefTRIAXone [Rocephin] 1,000 mg IV Q24H vial Docusate Sodium Cap [Colace Cap] 100 mg PO BID PRN capsule PRN Reason: Constipation Eye Wash Soln [Eye Stream] 1 irrigation BOTH EYES PRN PRN PRN Reason: eye discomfort Famotidine Tab [Pepcid Tab] 20 mg PO BID tablet Furosemide Tab [Lasix Tab] 20 mg PO DAILY tablet HYDROcodone/ACETAMIN 7.5-325 [[place] 7.5-325] 1 tablet PO Q4H PRN tablet PRN Reason: Pain Moderate (4-7) Insulin Glargine [Lantus] 35 unit SUBCUT BEDTIME unit metFORMIN [Glucophage] 500 mg PO BID W/MEALS tablet Ondansetron Inj [Zofran Inj] 4 mg IV Q4H PRN vial PRN Reason: Nausea Polyethylene Glycol Powder [Miralax] 17 gm PO DAILY Potassium Chloride Cap/Tab [K Dur] 10 meq PO DAILY tablet Skin Healing Oint (Aquaphor) [Aquaphor] 1 applic TOP PRN PRN applic PRN Reason: Dry Skin Sodium Hypochlorite 0.25% Irr [[place] 1/2 Strength 0.25% Soln] 1 applic TOP DAILY applic Sucralfate Liquid [Carafate Liquid] 1 gm PO BIDAC diphenhydrAMINE CAP [Benadryl Cap] 25 mg PO Q6H PRN capsule PRN Reason: Itching Glucagon 1 mg IM PRN PRN vial PRN Reason: Hypoglycemia w/o IV access Insulin Regular [HumuLIN R] See Protocol SUBCUT ACHS unit Silver Sulfadiazine 1% Cream [Silvadene] 1 applic TOP DAILY applic Vancomycin Inj 1,500 mg IV Q12H vial Continue Metoprolol Tartrate Tab [Lopressor Tab] 50 mg PO BID Losartan [Cozaar] 25 mg PO DAILY #30 caplet Magnesium Oxide 400 mg PO BID #60 caplet Rivaroxaban [Xarelto] 15 mg PO BID W/MEALS #29 tablet Amiodarone Tab [Cordarone Tab] 200 mg PO BID Discontinued Azithromycin [Azithromycin Z Pack] 250 mg PO DIRECTED #1 packet HYDROcodone/ACETAMIN 5-325 [[place] 5-325] 1 tablet PO Q6H PRN #14 tablet PRN Reason: knee pain - Follow Up or Referral Follow Up: Brice Messer MD [Physician] - 12/12/16 10:30 am - Forms/Instructions Exam - Constitutional Vitals: Period Temp Pulse Resp BP Sys/Contreras Pulse Ox Last 24 Hr 97.2 F-98.8 F 62-81 16-21 101-163/47-82 94-100 Vital signs are noted above. Heart is regular today with no murmur. Chest is fairly clear with no rales or wheezes. Multiple wounds are bandaged. She is awake and alert. Discharge Results Procedures and tests throughout hospitalization: Pending Orders 11/22/16 05:31 Red Blood Cells Leuko Red Stat Labs on day of discharge: Labs from last 24 hours 11/29/16 11/29/16 11/29/16 07:15 05:15 05:15 WBC 5.4 RBC 2.80 L Hgb 8.3 L Hct 25.8 L MCV 92.1 MCH 30 MCHC 32.2 RDW 17.5 H Plt Count 226 MPV 10.0 Neut % (Auto) 78.0 H Lymph % (Auto) 12.1 L [place] % (Auto) 7.4 Eos % (Auto) 1.7 Baso % (Auto) 0.2 Neut # (Auto) 4.3 Lymph # (Auto) 0.7 L [place] # (Auto) 0.4 Eos # (Auto) 0.1 Baso # (Auto) 0.0 Immature Gran % 0.6 Nucleated RBC % 0.0 Immature Gran # 0.03 Nucleated RBCs # 0.00 Immature Plt Fraction 0.0 Sodium 138 Potassium 3.8 Chloride 104 Carbon Dioxide 26 Anion Gap 11.8 BUN 6 L Creatinine 0.50 L GFR Calculation 136 BUN/Creatinine Ratio 12.00 Glucose 190 H POC Glucose 227 H Calculated Osmolality 277.7 Calcium 6.8 L Vancomycin Trough 11/28/16 11/28/16 11/28/16 20:51 18:26 17:48 WBC RBC Hgb Hct MCV MCH MCHC RDW Plt Count MPV Neut % (Auto) Lymph % (Auto) [place] % (Auto) Eos % (Auto) Baso % (Auto) Neut # (Auto) Lymph # (Auto) [place] # (Auto) Eos # (Auto) Baso # (Auto) Immature Gran % Nucleated RBC % Immature Gran # Nucleated RBCs # Immature Plt Fraction Sodium Potassium Chloride Carbon Dioxide Anion Gap BUN Creatinine GFR Calculation BUN/Creatinine Ratio Glucose POC Glucose 89 69 L Calculated Osmolality Calcium Vancomycin Trough 17.3 11/28/16 11/28/16 15:05 11:17 WBC RBC Hgb Hct MCV MCH MCHC RDW Plt Count MPV Neut % (Auto) Lymph % (Auto) [place] % (Auto) Eos % (Auto) Baso % (Auto) Neut # (Auto) Lymph # (Auto) [place] # (Auto) Eos # (Auto) Baso # (Auto) Immature Gran % Nucleated RBC % Immature Gran # Nucleated RBCs # Immature Plt Fraction Sodium Potassium Chloride Carbon Dioxide Anion Gap BUN Creatinine GFR Calculation BUN/Creatinine Ratio Glucose POC Glucose 103 85 Calculated Osmolality Calcium Vancomycin Trough DS: Provider Date of admission: 11/20/16 18:39 Primary care physician: Jay Winslow MD Attending physician on admission: Nancy Rubio MD Consults: 11/20/16 17:00 Consult to Case Mgmt/Social Srvs [CONS] Routine Reason for Case Mgmt/Social Srvs: Other Consult Comment: Covered in pressure ulcers- needs placement or home health 11/20/16 18:39 Consult to Physician [CONS] Routine Comment: multiple infected pressure ulcers Consulting Provider: Ricardo Jacobson When should Consulting Provider be notified: In am Person Notified: Char Date Notified: 11/21/16 Time Notified: 08:30 11/20/16 18:45 Consult to [facility], Educator [CONS] Routine Reason for Abstract Checker: Diabetes Education Consult to Physical Therapy [CONS] Routine Reason for Physical Therapy: Evaluate and Treat 11/20/16 20:07 Consult to Pharmacy [CONS] Routine Reason for Pharmacy Consult: Dose/Manage Vancomycin 11/21/16 01:08 Consult to Dietitian [CONS] Routine Reason for Dietitian: Diet Instruction 11/21/16 13:56 Consult to Anesthesiology [CONS] Routine Consulting Provider: Reason for Anesthesiology: Pre-op Clearance 11/21/16 13:59 Consult to Physician [CONS] Routine Comment: Consulting Provider: Consult to Specialist Group: Cardiology When should Consulting Provider be notified: Now Person Notified: Carlotn Date Notified: 11/21/16 Time Notified: 14:26 Consult Notification Comment: Patient with a history of cardiomyopathy and atrial fibrillation who is on Xarelto at this time for this problem. Do not require additional surgery for decubitus ulcers please evaluate and follow cardiac status Consult to Wound Care - [place] [CONS] Routine Reason for Wound Care: Wound Care Management Consult Comment: Multiple decubitus ulcers 11/21/16 14:04 Consult to Physician [CONS] Routine Comment: Consulting Provider: Ned Guerra Consult to Specialist Group: Neurology When should Consulting Provider be notified: In am Person Notified: Iganna Date Notified: 11/21/16 Time Notified: 14:27 Consult Notification Comment: Patient with decubitus ulcers and has become bedridden because she says she can no longer walk. Please evaluate evaluate for reason why she has lost her ability to ambulate 11/22/16 13:07 Consult to Case Mgmt/Social Srvs [CONS] Routine Reason for Case Mgmt/Social Srvs: LTAC Consult Comment: specialty hospital 11/24/16 11:15 Consult to Dietitian [CONS] Routine Reason for Dietitian: Dietary Consult Consult Comment: needs to eat more 11/25/16 11:29 Consult to Anesthesiology [CONS] Routine Consulting Provider: Reason for Anesthesiology: Pre-op Clearance Consult Comment: Patient will need to be intubated and on her side Discharging clinician: Fabian Cardozo MD Expected date of discharge: 11/29/16
[2016-11-29] MEDS ORDERED: SODIUM PHOSPHATE ENEMA 133 ML BOTTLE RECTAL ONE ×2 (11:54→12:10)
[2016-11-29 12:47] VITALS: BP 106/43
--- NOTE | 2016-11-29 13:02 | General Surgery Progress Note ---
Assessment and Plan (1) Infected decubitus ulcer Status: Acute Assessment and plan: Impression: Decubitus ulcers of 1. Left hip unstageable 2. Left posterior thigh unstageable 3. Sacral unstageable 4. Right hip unstageable Plan: We will need to have patient off Xarelto about 3 days and then we could take to surgery for some further debridement. We will start local wound care at this time. 11/22/2016. Plans at this time is to take patient to surgery this afternoon for debridement of these ulcers. She will probably have to be under general anesthesia and will have to rotate her from side to side in order to do this. Family and patient understands this and agreeable to surgery at this time. They understand the risk complications. Hematocrit is 29 this morning after 2 units but will set up 2 units because of may need it for surgery. Certainly will see what cardiology has to say if they need to delay her surgery because of her heart we might be able to do that but certainly we need to get these wounds cleaned up so that we can reduce the stress on her system. 11/24/2016. Patient is progressing slowly here at this time. The 2 ischial decubitus ulcers are difficult see no figure need additional debridement but there is deep at this time. The left hip ulcer though will require some further debridements matter we and and the timing on that. I prefer try and see if we can get a wound VAC on this left hip. Be going to get a wound VAC on the ischial decubitus ulcers also but unfortunately I am not sure that would hold very well. Will probably need to debride the right hip ulcer at some point just cannot get this process cleaned. He does run close to the right ischial decubitus ulcer also. 11/25/2016 will need to set patient up for surgery to debride the right hip ulcer on Monday. It appears that the left may need some further debridement in order to get it in shape and may be consideration for wound VAC. The bilateral ischial ulcers are fairly clean I do not see a lot of necrotic tissue there we might look at the end up with we had to debride him when not sure at this point. 11/29/2016. Patient is postop from debridement of the left hip both of the ischial ulcers and the right hip areas. She is doing fairly well with the ulcer is looking in better shape and they were. The right hip ulcer was not as bad as originally thought it might be just down the fatty tissue at this time. At this point we get the wounds on the best shape we can get him at this time so we will go ahead make sure we get good wound care continued on in the hopes of getting this time to begin to respond a little bit better. Still consideration for wound VAC to the left hip but certainly I do not see what we can do much at this time. Current Visit: Yes Qualifiers: Pressure ulcer stage: unstageable Qualified Code(s): L89.95 - Pressure ulcer of unspecified site, unstageable; L08.9 - Local infection of the skin and subcutaneous tissue, unspecified; L08.9 - Local infection of the skin and subcutaneous tissue, unspecified (2) Diabetes mellitus type 2 in nonobese Status: Chronic Assessment and plan: Impression: Diabetes type 2 Plan: Medical management Current Visit: No (3) Heart failure, systolic, due to idiopathic cardiomyopathy Status: Acute Assessment and plan: Impression: Cardiomyopathy etiology unknown Plan: Cardiology consult Current Visit: No Subjective Patient reports: Present: no new complaints, tolerating a regular diet, no bowel movement, afebrile Exam - Constitutional Vitals: Period Temp Pulse Resp BP Sys/Contreras Pulse Ox Last 24 Hr 97.2 F-98.8 F 62-81 16-21 101-163/43-82 90-100 General appearance: mild distress - Head Head exam: Present: normal inspection - ENT ENT exam: Present: normal exam - Neck Neck exam: Present: normal inspection - Respiratory Respiratory exam: Present: rales - Cardiovascular Cardiovascular exam: Present: RRR - GI/Abdominal GI/Abdominal exam: Present: hypoactive bowel sounds, soft - Extremities Exam Extremities exam: Present: other (Right and left hip ulcers are clean and stable. The left continues to have little pale tissue that not sure how they got change or improve at this point.) - Back Exam Back exam: Present: normal inspection (Ischial ulcers are deep but they have pretty clean beds at this time and seem to be progressing fairly nicely with present wound care.) - Neurological Exam Neurological exam: Present: alert, oriented X3, CN II-XII intact - Skin Skin exam: Present: normal color, warm, dry Results - Labs CBC & BMP: 11/29/16 05:15 11/29/16 05:15 Lab Results: I have reviewed the past 24 hour labs Quality Measures - VTE Contraindication to Pharmacological VTE Prophylaxis: Already on Theraputic Agent , No Prophylaxis Needed Specialty Discharge - Follow Up or Referrals Follow up with: Brice Messer MD [Physician] - 12/12/16 10:30 am
[2016-11-30] MEDS ORDERED: AMIODARONE 200 MG TABLET PO SCH (09:00)
== END 2016-11-29 16:30 | DRG 579 ==
LOC: N.ED 16:23 → SUATTDRO 18:39 → N.EDINP 18:39 → N.5E 19:53
PROVIDERS: ADMIT Internal Medicine; ATTEND Internal Medicine Geriatric Medicine

== ENCOUNTER 2020-01-22 16:00 | Inpatient (IN) ==
[2020-01-22 16:57] LABS: Basophils % 0.2 % (0.0-0.8); Eosinophils # 0.1 10*3/uL (0.0-0.87); Eosinophils % 1.1 % (0.00-10.9); Hematocrit 24.5 VOL% (35.7-47.0); Hemoglobin 7.2 GM/DL (12.0-16.0); Immature Granulocytes % 0.7 %; Immature Granulocytes Absolute 0.03 #; Lymphocytes # 1.4 10*3/uL (1.4-4.0); Lymphocytes % 31.6 % (21.3-54.2); Mean Corpuscular HGB Conc 29.4 GM/DL (32-36); Mean Corpuscular Volume 104.7 FL (87-102); Mean Platelet Volume 9.9 FL (9.6-12.0); Monocytes % 15.8 % (1.7-12.7); Neutrophils % 50.6 % (38.7-73.9); Platelet Count 277 T/CUMM (130-400); Red Blood Count 2.34 MC/CUMM (3.8-5.5); Red Cell Distribution Width 19.2 % (9.3-17.3); White Blood Count 4.5 T/CUMM (4-12)
[2020-01-22 17:24] LABS: Alanine Aminotransferase 15 U/L (13-56); Albumin 2.8 G/DL (3.4-5.0); Alkaline Phosphatase 75 U/L (45-117); Aspartate Amino Transferase 19 U/L (0-37); Bilirubin,Total < 0.39 MG/DL (0.2-1.0); Blood Urea Nitrogen 22 MG/DL (7-18); Calcium 8.5 MG/DL (8.5-10.1); Estimated Glom Filtration Rate 68 ML/MIN; Glucose 85 MG/DL (74-106); Osmolality,Calculated 274.8 MOS/KG (273-304); Total Protein 10.5 G/DL (6.4-8.3)
[2020-01-22] MEDS ORDERED: ONDANSETRON 4 MG/2 ML VIAL IV PRN (18:20)
[2020-01-22] MEDS ORDERED: ACETAMINOPHEN 325 MG TABLET PO PRN (18:20)
[2020-01-22] MEDS ORDERED: PANTOPRAZOLE INJ 80 MG in SODIUM CHLORIDE 0.9% 100 ML IV ONE ×2 (18:24→23:30)
[2020-01-22] MEDS ORDERED: SODIUM CHLORIDE 0.9% 1,000 ML IV PRN (18:25)
[2020-01-22 18:31] LABS: Eosinophils 1 % (0-10); Lymphocytes 28 % (20-55); Nucleated Red Blood Cells 1 (0-5); Segmented Neutrophils 57 % (50-85); Total Cells Counted 100
[2020-01-22 18:32] LABS: Anisocytosis 1+; Macrocytosis 1+; Platelet Estimate Adequate; Polychromasia Few
[2020-01-22] MEDS: SODIUM CHLORIDE 0.9% 1,000 ML IV SCH (21:10)
[2020-01-23] MEDS: PANTOPRAZOLE INJ 200 MG in SODIUM CHLORIDE 0.9% 250 ML IV SCH (02:02)
[2020-01-23] MEDS: SODIUM CHLORIDE 0.9% 1,000 ML IV SCH ×2 (05:50→15:38)
[2020-01-23 10:33] LABS: % Iron Saturation 16.6 % (18-50); Ferritin 26.7 ng/ml (8-252)
[2020-01-23] MEDS ORDERED: SODIUM CHLORIDE 0.9% 1,000 ML IV PRN (17:04)
[2020-01-23] MEDS ORDERED: FUROSEMIDE 40 MG/4 ML VIAL IV ONE (17:46)
[2020-01-23] MEDS ORDERED: DEXTROSE 50% 25 GM/50 ML VIAL IV PRN (21:02)
[2020-01-23] MEDS ORDERED: GLUCAGON 1 MG VIAL IM PRN (21:02)
[2020-01-23] MEDS: traMADol 50 MG TABLET PO SCH (21:14)
[2020-01-23] MEDS: FERROUS SULFATE 325 MG TABLET PO SCH (21:14)
[2020-01-23] MEDS: GABAPENTIN 100 MG CAPSULE PO SCH (21:14)
[2020-01-23] MEDS: ACETAMINOPHEN 325 MG TABLET PO SCH (23:34)
[2020-01-24] MEDS: SODIUM CHLORIDE 0.9% 1,000 ML IV SCH ×3 (00:59→19:03)
[2020-01-24] MEDS: PANTOPRAZOLE INJ 200 MG in SODIUM CHLORIDE 0.9% 250 ML IV SCH (02:15)
[2020-01-24 05:53] LABS: Basophils % 0.3 % (0.0-0.8); Eosinophils % 1.3 % (0.00-10.9); Hematocrit 20.8 VOL% (35.7-47.0); Immature Granulocytes % 0.6 %; Immature Granulocytes Absolute 0.02 #; Lymphocytes # 0.9 10*3/uL (1.4-4.0); Lymphocytes % 27.9 % (21.3-54.2); Mean Corpuscular HGB Conc 29.3 GM/DL (32-36); Mean Corpuscular Volume 103.5 FL (87-102); Mean Platelet Volume 9.9 FL (9.6-12.0); Neutrophils % 54.9 % (38.7-73.9); Platelet Count 228 T/CUMM (130-400); Red Blood Count 2.01 MC/CUMM (3.8-5.5); Red Cell Distribution Width 18.9 % (9.3-17.3); White Blood Count 3.2 T/CUMM (4-12)
[2020-01-24 06:04] LABS: Hemoglobin 6.1 GM/DL (12.0-16.0)
[2020-01-24 06:18] LABS: Alanine Aminotransferase < 9 U/L (13-56); Albumin 2.4 G/DL (3.4-5.0); Alkaline Phosphatase 62 U/L (45-117); Aspartate Amino Transferase 9 U/L (0-37); Blood Urea Nitrogen 16 MG/DL (7-18); Calcium 8.3 MG/DL (8.5-10.1); Estimated Glom Filtration Rate 86 ML/MIN; Glucose 144 MG/DL (74-106); Osmolality,Calculated 286.1 MOS/KG (273-304); Total Protein 9.4 G/DL (6.4-8.3)
[2020-01-24] MEDS: LEVOTHYROXINE 25 MCG TABLET PO SCH (06:23)
[2020-01-24] MEDS: ACETAMINOPHEN 325 MG TABLET PO SCH ×4 (06:24→21:01)
[2020-01-24 06:51] LABS: Anisocytosis 1+; Macrocytosis 1+
[2020-01-24 06:52] LABS: Hypochromasia 2+; Platelet Estimate Normal; Polychromasia Slight; Tear Drop Cells Slight
[2020-01-24] MEDS ORDERED: SODIUM CHLORIDE 0.9% 1,000 ML IV PRN (08:13)
[2020-01-24] MEDS ORDERED: FUROSEMIDE 20 MG/2 ML VIAL IV ONE ×2 (08:15→20:00)
[2020-01-24] MEDS ORDERED: BISACODYL 5 MG TABLET PO SCH (09:00)
[2020-01-24] MEDS: INSULIN REGULAR 100 UNIT/ML SUBCUT SCH ×2 (09:17→17:23)
[2020-01-24] MEDS: FUROSEMIDE 40 MG/4 ML VIAL IV SCH (09:19)
[2020-01-24] MEDS: METOPROLOL SUCCINATE XL 25 MG TABLET PO SCH ×2 (09:20→16:37)
[2020-01-24] MEDS: DIGOXIN 0.125 MG TABLET PO SCH (09:20)
[2020-01-24] MEDS ORDERED: LACTATED RINGERS 1,000 ML IV SCH (09:30)
[2020-01-24] MEDS: GABAPENTIN 100 MG CAPSULE PO SCH ×3 (11:22→21:02)
[2020-01-24] MEDS: FERROUS SULFATE 325 MG TABLET PO SCH ×2 (11:22→21:02)
[2020-01-24] MEDS: POTASSIUM CHLORIDE 20 MEQ/15 ML UDCUP PO SCH ×2 (11:22→21:02)
[2020-01-24] MEDS: traMADol 50 MG TABLET PO SCH ×3 (11:23→21:01)
[2020-01-24] MEDS ORDERED: propofoL 200 MG/20 ML VIAL IV ONE (15:05)
[2020-01-24] MEDS ORDERED: LIDOCAINE 2% 5 ML VIAL ONE (15:05)
[2020-01-24] MEDS ORDERED: ERGOCALCIFEROL 50,000 UNIT CAPSULE PO SCH (21:00)
[2020-01-25 05:52] LABS: Basophils % 0.6 % (0.0-0.8); Eosinophils # 0.1 10*3/uL (0.0-0.87); Eosinophils % 2.2 % (0.00-10.9); Hematocrit 26.5 VOL% (35.7-47.0); Hemoglobin 8.3 GM/DL (12.0-16.0); Immature Granulocytes % 0.6 %; Immature Granulocytes Absolute 0.02 #; Lymphocytes # 0.6 10*3/uL (1.4-4.0); Lymphocytes % 20.2 % (21.3-54.2); Mean Corpuscular HGB Conc 31.3 GM/DL (32-36); Mean Corpuscular Volume 98.5 FL (87-102); Mean Platelet Volume 10.1 FL (9.6-12.0); Monocytes % 15.8 % (1.7-12.7); Neutrophils % 60.6 % (38.7-73.9); Platelet Count 221 T/CUMM (130-400); Red Blood Count 2.69 MC/CUMM (3.8-5.5); Red Cell Distribution Width 20.8 % (9.3-17.3); White Blood Count 3.2 T/CUMM (4-12)
[2020-01-25 06:15] LABS: Calcium 8.2 MG/DL (8.5-10.1); Osmolality,Calculated 277.5 MOS/KG (273-304)
[2020-01-25 06:26] LABS: Band Neutrophils 1 % (0-10); Hypochromasia Slight; Lymphocytes 17 % (20-55); Platelet Estimate Normal; Segmented Neutrophils 69 % (50-85); Total Cells Counted 100
[2020-01-25] MEDS: LEVOTHYROXINE 25 MCG TABLET PO SCH (07:09)
[2020-01-25] MEDS: POTASSIUM CHLORIDE 20 MEQ/15 ML UDCUP PO SCH ×2 (09:39→22:11)
[2020-01-25] MEDS: FERROUS SULFATE 325 MG TABLET PO SCH ×2 (09:39→22:12)
[2020-01-25] MEDS: LACTULOSE 20 GM/30 ML UDCUP PO SCH (09:39)
[2020-01-25] MEDS: traMADol 50 MG TABLET PO SCH ×3 (09:39→22:11)
[2020-01-25] MEDS: GABAPENTIN 100 MG CAPSULE PO SCH ×3 (09:40→22:11)
[2020-01-25] MEDS: ACETAMINOPHEN 325 MG TABLET PO SCH ×3 (09:40→22:12)
[2020-01-25] MEDS: INSULIN REGULAR 100 UNIT/ML SUBCUT SCH ×2 (09:40→17:41)
[2020-01-25] MEDS: METOPROLOL SUCCINATE XL 25 MG TABLET PO SCH ×2 (09:40→17:40)
[2020-01-25] MEDS: DIGOXIN 0.125 MG TABLET PO SCH (09:45)
[2020-01-25] MEDS: FUROSEMIDE 40 MG/4 ML VIAL IV SCH (09:46)
[2020-01-25] MEDS: PANTOPRAZOLE INJ 200 MG in SODIUM CHLORIDE 0.9% 250 ML IV SCH (15:52)
[2020-01-25] MEDS: SODIUM CHLORIDE 0.9% 1,000 ML IV SCH ×2 (15:52)
[2020-01-26] MEDS: SODIUM CHLORIDE 0.9% 1,000 ML IV SCH ×5 (01:44→23:51)
[2020-01-26 05:45] LABS: Basophils % 0.3 % (0.0-0.8); Eosinophils # 0.1 10*3/uL (0.0-0.87); Eosinophils % 1.9 % (0.00-10.9); Hematocrit 26.4 VOL% (35.7-47.0); Immature Granulocytes % 0.3 %; Immature Granulocytes Absolute 0.01 #; Lymphocytes # 0.9 10*3/uL (1.4-4.0); Lymphocytes % 26.7 % (21.3-54.2); Mean Corpuscular HGB Conc 30.3 GM/DL (32-36); Mean Corpuscular Volume 99.2 FL (87-102); Monocytes % 14.8 % (1.7-12.7); Platelet Count 211 T/CUMM (130-400); Red Blood Count 2.66 MC/CUMM (3.8-5.5); Red Cell Distribution Width 20.4 % (9.3-17.3); White Blood Count 3.2 T/CUMM (4-12)
[2020-01-26 06:09] LABS: Hypochromasia 2+; Platelet Estimate Adequate
[2020-01-26 06:10] LABS: Macrocytosis Slight; Polychromasia Slight
[2020-01-26] MEDS: LEVOTHYROXINE 25 MCG TABLET PO SCH (06:10)
[2020-01-26] MEDS: INSULIN REGULAR 100 UNIT/ML SUBCUT SCH ×2 (09:02→15:53)
[2020-01-26] MEDS: FERROUS SULFATE 325 MG TABLET PO SCH ×2 (09:04→21:21)
[2020-01-26] MEDS: ACETAMINOPHEN 325 MG TABLET PO SCH ×3 (09:04→21:20)
[2020-01-26] MEDS: traMADol 50 MG TABLET PO SCH ×3 (09:04→21:20)
[2020-01-26] MEDS: GABAPENTIN 100 MG CAPSULE PO SCH ×3 (09:04→21:20)
[2020-01-26] MEDS: METOPROLOL SUCCINATE XL 25 MG TABLET PO SCH ×2 (09:04→17:21)
[2020-01-26] MEDS: FUROSEMIDE 40 MG/4 ML VIAL IV SCH (09:05)
[2020-01-26] MEDS: PANTOPRAZOLE 40 MG VIAL IV SCH ×2 (09:05→21:21)
[2020-01-26] MEDS: POTASSIUM CHLORIDE 20 MEQ/15 ML UDCUP PO SCH ×2 (09:05→21:19)
[2020-01-26] MEDS: DIGOXIN 0.125 MG TABLET PO SCH (09:06)
[2020-01-26] MEDS: BISACODYL 5 MG TABLET PO SCH (15:39)
[2020-01-26] MEDS ORDERED: POLYETHYLENE GLYCOL POWDER 255 GM BOTTLE PO ONE (16:00)
[2020-01-27] MEDS: LEVOTHYROXINE 25 MCG TABLET PO SCH (05:52)
[2020-01-27] MEDS ORDERED: MAGNESIUM CITRATE 300 ML BOTTLE PO ONE (06:00)
[2020-01-27] MEDS: INSULIN REGULAR 100 UNIT/ML SUBCUT SCH ×2 (09:08→17:33)
[2020-01-27] MEDS: FUROSEMIDE 40 MG/4 ML VIAL IV SCH (09:10)
[2020-01-27] MEDS: POTASSIUM CHLORIDE 20 MEQ/15 ML UDCUP PO SCH ×2 (09:10→20:42)
[2020-01-27] MEDS: PANTOPRAZOLE 40 MG VIAL IV SCH ×2 (09:10→20:43)
[2020-01-27] MEDS: GABAPENTIN 100 MG CAPSULE PO SCH ×3 (09:10→20:43)
[2020-01-27] MEDS: METOPROLOL SUCCINATE XL 25 MG TABLET PO SCH ×2 (09:11→17:32)
[2020-01-27] MEDS: DIGOXIN 0.125 MG TABLET PO SCH (09:11)
[2020-01-27] MEDS: traMADol 50 MG TABLET PO SCH ×3 (09:11→20:43)
[2020-01-27] MEDS: ACETAMINOPHEN 325 MG TABLET PO SCH ×3 (09:11→20:43)
[2020-01-27] MEDS: BISACODYL 5 MG TABLET PO SCH (09:11)
[2020-01-27] MEDS: FERROUS SULFATE 325 MG TABLET PO SCH ×2 (09:11→20:43)
[2020-01-27] MEDS: LACTULOSE 20 GM/30 ML UDCUP PO SCH (09:12)
[2020-01-27] MEDS ORDERED: POLYETHYLENE GLYCOL POWDER 255 GM BOTTLE PO ONE (10:00)
[2020-01-27] MEDS: SODIUM CHLORIDE 0.9% 1,000 ML IV SCH ×4 (14:26→21:30)
[2020-01-28 06:44] LABS: Basophils % 0.3 % (0.0-0.8); Eosinophils # 0.1 10*3/uL (0.0-0.87); Eosinophils % 2.3 % (0.00-10.9); Hematocrit 27.5 VOL% (35.7-47.0); Hemoglobin 8.3 GM/DL (12.0-16.0); Immature Granulocytes % 0.3 %; Immature Granulocytes Absolute 0.01 #; Lymphocytes # 0.8 10*3/uL (1.4-4.0); Lymphocytes % 25.8 % (21.3-54.2); Mean Corpuscular HGB Conc 30.2 GM/DL (32-36); Mean Corpuscular Volume 99.6 FL (87-102); Mean Platelet Volume 9.5 FL (9.6-12.0); Monocytes % 13.4 % (1.7-12.7); Neutrophils % 57.9 % (38.7-73.9); Platelet Count 197 T/CUMM (130-400); Red Blood Count 2.76 MC/CUMM (3.8-5.5); Red Cell Distribution Width 19.3 % (9.3-17.3)
[2020-01-28 06:58] LABS: Calcium 7.9 MG/DL (8.5-10.1); Osmolality,Calculated 276.4 MOS/KG (273-304)
[2020-01-28 07:01] LABS: INR 1.1; PT Patient Result 11.3 SECS (9.8-11.9)
[2020-01-28] MEDS: INSULIN REGULAR 100 UNIT/ML SUBCUT SCH ×2 (07:48→17:29)
[2020-01-28 08:18] LABS: Alanine Aminotransferase 14 U/L (13-56); Albumin 2.3 G/DL (3.4-5.0); Alkaline Phosphatase 59 U/L (45-117); Aspartate Amino Transferase 19 U/L (0-37); Bilirubin,Total < 0.39 MG/DL (0.2-1.0); Blood Urea Nitrogen 5 MG/DL (7-18); Calcium 7.9 MG/DL (8.5-10.1); Estimated Glom Filtration Rate 118 ML/MIN; Glucose 124 MG/DL (74-106); Osmolality,Calculated 276.4 MOS/KG (273-304); Total Protein 8.7 G/DL (6.4-8.3)
[2020-01-28] MEDS: LEVOTHYROXINE 25 MCG TABLET PO SCH (11:37)
[2020-01-28] MEDS: ACETAMINOPHEN 325 MG TABLET PO SCH ×3 (11:37→20:27)
[2020-01-28] MEDS: GABAPENTIN 100 MG CAPSULE PO SCH ×3 (11:37→20:27)
[2020-01-28] MEDS: traMADol 50 MG TABLET PO SCH ×3 (11:37→20:27)
[2020-01-28] MEDS ORDERED: propofoL 200 MG/20 ML VIAL IV ONE (14:02)
[2020-01-28] MEDS ORDERED: PHENYLEPHRINE 1 MG/10 ML SYRINGE IV ONE (14:02)
[2020-01-28] MEDS ORDERED: LIDOCAINE 2% 5 ML VIAL ONE (14:02)
[2020-01-28] MEDS: DIGOXIN 0.125 MG TABLET PO SCH (14:43)
[2020-01-28] MEDS: METOPROLOL SUCCINATE XL 25 MG TABLET PO SCH ×2 (14:44→17:27)
[2020-01-28] MEDS: FERROUS SULFATE 325 MG TABLET PO SCH ×2 (14:44→20:27)
[2020-01-28] MEDS: BISACODYL 5 MG TABLET PO SCH (14:44)
[2020-01-28] MEDS: PANTOPRAZOLE 40 MG VIAL IV SCH ×2 (14:45→20:03)
[2020-01-28] MEDS: FUROSEMIDE 40 MG/4 ML VIAL IV SCH (14:45)
[2020-01-28] MEDS: POTASSIUM CHLORIDE 20 MEQ/15 ML UDCUP PO SCH ×2 (14:47→20:26)
[2020-01-28] MEDS: ASCORBIC ACID 500 MG TABLET PO SCH ×2 (14:48→20:26)
[2020-01-28] MEDS ORDERED: TUBERCULIN SKIN TEST 0.1 ML SYRINGE INTRADERM ONE (16:01)
[2020-01-28] MEDS: SODIUM CHLORIDE 0.9% 1,000 ML IV SCH ×2 (17:11→17:29)
[2020-01-29] MEDS: SODIUM CHLORIDE 0.9% 1,000 ML IV SCH ×3 (04:49→17:52)
[2020-01-29 05:16] LABS: Basophils % 0.6 % (0.0-0.8); Eosinophils # 0.1 10*3/uL (0.0-0.87); Eosinophils % 1.9 % (0.00-10.9); Hematocrit 25.9 VOL% (35.7-47.0); Hemoglobin 7.9 GM/DL (12.0-16.0); Immature Granulocytes % 0.3 %; Immature Granulocytes Absolute 0.01 #; Lymphocytes # 0.9 10*3/uL (1.4-4.0); Lymphocytes % 26.4 % (21.3-54.2); Mean Corpuscular HGB Conc 30.5 GM/DL (32-36); Mean Corpuscular Volume 100.4 FL (87-102); Mean Platelet Volume 9.6 FL (9.6-12.0); Monocytes % 15.5 % (1.7-12.7); Neutrophils % 55.3 % (38.7-73.9); Platelet Count 196 T/CUMM (130-400); Red Blood Count 2.58 MC/CUMM (3.8-5.5); Red Cell Distribution Width 19.3 % (9.3-17.3); White Blood Count 3.2 T/CUMM (4-12)
[2020-01-29 05:39] LABS: Band Neutrophils 1 % (0-10); Eosinophils 1 % (0-10); Hypochromasia 2+; Lymphocytes 17 % (20-55); Microcytosis 1+; Ovalocytes Slight; Platelet Estimate Adequate; Segmented Neutrophils 69 % (50-85); Total Cells Counted 100
[2020-01-29 05:42] LABS: Albumin 2.2 G/DL (3.4-5.0); Bilirubin,Total 0.5 MG/DL (0.2-1.0); Osmolality,Calculated 277.4 MOS/KG (273-304); Total Protein 8.7 G/DL (6.4-8.3)
[2020-01-29] MEDS: LEVOTHYROXINE 25 MCG TABLET PO SCH (06:24)
[2020-01-29] MEDS: INSULIN REGULAR 100 UNIT/ML SUBCUT SCH ×2 (08:49→16:09)
[2020-01-29] MEDS: DIGOXIN 0.125 MG TABLET PO SCH (08:50)
[2020-01-29] MEDS: GABAPENTIN 100 MG CAPSULE PO SCH ×3 (08:50→20:31)
[2020-01-29] MEDS: METOPROLOL SUCCINATE XL 25 MG TABLET PO SCH ×2 (08:50→17:24)
[2020-01-29] MEDS: FERROUS SULFATE 325 MG TABLET PO SCH ×2 (08:50→20:31)
[2020-01-29] MEDS: ASCORBIC ACID 500 MG TABLET PO SCH ×2 (08:50→20:29)
[2020-01-29] MEDS: POTASSIUM CHLORIDE 20 MEQ/15 ML UDCUP PO SCH ×2 (08:51→20:31)
[2020-01-29] MEDS: traMADol 50 MG TABLET PO SCH ×3 (08:51→20:30)
[2020-01-29] MEDS: ACETAMINOPHEN 325 MG TABLET PO SCH ×3 (08:52→20:30)
[2020-01-29] MEDS: FUROSEMIDE 40 MG/4 ML VIAL IV SCH (08:52)
[2020-01-29] MEDS: PANTOPRAZOLE 40 MG VIAL IV SCH ×2 (08:52→20:31)
[2020-01-29] MEDS: LACTULOSE 20 GM/30 ML UDCUP PO SCH (08:57)
[2020-01-29] MEDS: BISACODYL 5 MG TABLET PO SCH (08:57)
[2020-01-30] MEDS: LEVOTHYROXINE 25 MCG TABLET PO SCH (05:31)
[2020-01-30 05:36] LABS: Basophils % 0.3 % (0.0-0.8); Eosinophils # 0.1 10*3/uL (0.0-0.87); Eosinophils % 1.8 % (0.00-10.9); Hematocrit 27.2 VOL% (35.7-47.0); Hemoglobin 8.5 GM/DL (12.0-16.0); Immature Granulocytes % 0.6 %; Immature Granulocytes Absolute 0.02 #; Lymphocytes # 0.9 10*3/uL (1.4-4.0); Lymphocytes % 26.5 % (21.3-54.2); Mean Corpuscular HGB Conc 31.3 GM/DL (32-36); Mean Corpuscular Volume 97.8 FL (87-102); Mean Platelet Volume 9.6 FL (9.6-12.0); Monocytes % 14.8 % (1.7-12.7); Platelet Count 203 T/CUMM (130-400); Red Blood Count 2.78 MC/CUMM (3.8-5.5); Red Cell Distribution Width 18.8 % (9.3-17.3); White Blood Count 3.3 T/CUMM (4-12)
[2020-01-30 05:50] LABS: Calcium 8.1 MG/DL (8.5-10.1); Osmolality,Calculated 274.7 MOS/KG (273-304)
[2020-01-30 06:03] LABS: Hypochromasia 2+; Microcytosis 1+; Ovalocytes Slight; Platelet Estimate Adequate
[2020-01-30] MEDS: SODIUM CHLORIDE 0.9% 1,000 ML IV SCH ×3 (08:17→17:33)
[2020-01-30] MEDS: INSULIN REGULAR 100 UNIT/ML SUBCUT SCH ×2 (08:48→15:54)
[2020-01-30] MEDS: METOPROLOL SUCCINATE XL 25 MG TABLET PO SCH ×2 (08:49→17:11)
[2020-01-30] MEDS: GABAPENTIN 100 MG CAPSULE PO SCH ×3 (08:49→20:14)
[2020-01-30] MEDS: traMADol 50 MG TABLET PO SCH ×3 (08:49→20:13)
[2020-01-30] MEDS: ASCORBIC ACID 500 MG TABLET PO SCH ×2 (08:49→20:14)
[2020-01-30] MEDS: DIGOXIN 0.125 MG TABLET PO SCH (08:49)
[2020-01-30] MEDS: FERROUS SULFATE 325 MG TABLET PO SCH ×2 (08:49→20:14)
[2020-01-30] MEDS: POTASSIUM CHLORIDE 20 MEQ/15 ML UDCUP PO SCH ×2 (08:50→20:16)
[2020-01-30] MEDS: ACETAMINOPHEN 325 MG TABLET PO SCH ×3 (08:50→20:14)
[2020-01-30] MEDS: PANTOPRAZOLE 40 MG VIAL IV SCH ×2 (08:50→20:10)
[2020-01-30] MEDS: FUROSEMIDE 40 MG/4 ML VIAL IV SCH (08:51)
[2020-01-30] MEDS: BISACODYL 5 MG TABLET PO SCH (08:51)
[2020-01-30 08:54] LABS: Hepatitis B Core IgM Quant 0.28 Index; Hepatitis B Surface Ag Quant < 0.10 Index; Hepatitis B Surface Ag Result Negative (Negative); Hepatitis C Virus Ab Quant 0.08 Index; Hepatitis C Virus Ab Result Negative (Negative)
[2020-01-31] MEDS: SODIUM CHLORIDE 0.9% 1,000 ML IV SCH ×2 (03:41→10:12)
[2020-01-31] MEDS: LEVOTHYROXINE 25 MCG TABLET PO SCH (05:47)
[2020-01-31 07:06] VITALS: BP 152/52
[2020-01-31 07:18] LABS: Basophils % 0.3 % (0.0-0.8); Eosinophils # 0.1 10*3/uL (0.0-0.87); Eosinophils % 1.3 % (0.00-10.9); Hematocrit 28.3 VOL% (35.7-47.0); Hemoglobin 8.8 GM/DL (12.0-16.0); Immature Granulocytes % 0.8 %; Immature Granulocytes Absolute 0.03 #; Lymphocytes # 0.8 10*3/uL (1.4-4.0); Lymphocytes % 20.4 % (21.3-54.2); Mean Corpuscular HGB Conc 31.1 GM/DL (32-36); Mean Corpuscular Volume 97.6 FL (87-102); Mean Platelet Volume 9.8 FL (9.6-12.0); Monocytes % 13.7 % (1.7-12.7); Neutrophils % 63.5 % (38.7-73.9); Platelet Count 191 T/CUMM (130-400); Red Cell Distribution Width 19.1 % (9.3-17.3); White Blood Count 3.7 T/CUMM (4-12)
[2020-01-31 07:35] LABS: Calcium 8.3 MG/DL (8.5-10.1); Osmolality,Calculated 274.8 MOS/KG (273-304)
[2020-01-31] MEDS: POTASSIUM CHLORIDE 20 MEQ/15 ML UDCUP PO SCH (08:59)
[2020-01-31] MEDS: LACTULOSE 20 GM/30 ML UDCUP PO SCH (09:01)
[2020-01-31] MEDS: PANTOPRAZOLE 40 MG VIAL IV SCH (09:02)
[2020-01-31] MEDS: INSULIN REGULAR 100 UNIT/ML SUBCUT SCH (09:02)
[2020-01-31] MEDS: ASCORBIC ACID 500 MG TABLET PO SCH (09:04)
[2020-01-31] MEDS: ACETAMINOPHEN 325 MG TABLET PO SCH (09:04)
[2020-01-31] MEDS: FERROUS SULFATE 325 MG TABLET PO SCH (09:04)
[2020-01-31] MEDS: METOPROLOL SUCCINATE XL 25 MG TABLET PO SCH (09:04)
[2020-01-31] MEDS: BISACODYL 5 MG TABLET PO SCH (09:04)
[2020-01-31] MEDS: GABAPENTIN 100 MG CAPSULE PO SCH (09:04)
[2020-01-31] MEDS: DIGOXIN 0.125 MG TABLET PO SCH (09:04)
[2020-01-31] MEDS: FUROSEMIDE 40 MG/4 ML VIAL IV SCH (09:09)
[2020-01-31] MEDS ORDERED: propofoL 200 MG/20 ML VIAL IV ONE (13:30)
== END 2020-01-31 10:40 | DRG 813 ==
LOC: EDBD → EDUNIT# → N.EDINP 16:00 → N.ED 16:00 → N.EDINP 19:50 → N.5E 20:17
PROVIDERS: ADMIT Internal Medicine; ATTEND Internal Medicine

== ENCOUNTER 2020-12-05 21:35 | Inpatient (IN) ==
[2020-12-05] MEDS ORDERED: SODIUM CHLORIDE 0.9% 500 ML IV STA (22:07)
[2020-12-05] MEDS ORDERED: ACETAMINOPHEN 500 MG TABLET PO STA (22:07)
[2020-12-05] MEDS ORDERED: cefTRIAXone 1,000 MG in SODIUM CHLORIDE 0.9% 100 ML IV STA (22:07)
[2020-12-05 23:35] LABS: Bilirubin,Urine Negative (Negative); Blood, Urine Small mg/dL (Negative); Glucose,Urine (UA) Negative (Negative); Hyaline Casts,Urine 38 /LPF (0-3); Ketones,Urine Negative (Negative); Mucus,Urine Occasional /LPF (Occasional); Nitrite,Urine Negative (Negative); Protein,Urine 30 MG/DL; RBC,Urine 18 /HPF (0-4); Urine Appearance CLOUDY (Clear); Urine Color Yellow (Yellow); Urine Specific Gravity 1.014 (1.001-1.035)
[2020-12-05 23:49] LABS: Basophils % 0.2 % (0.0-0.8); Hematocrit 29.6 VOL% (35.7-47.0); Hemoglobin 8.8 GM/DL (12.0-16.0); Immature Granulocytes % 1.6 %; Immature Granulocytes Absolute 0.09 #; Lymphocytes # 0.5 10*3/uL (1.4-4.0); Lymphocytes % 8.8 % (21.3-54.2); Mean Corpuscular HGB Conc 29.7 GM/DL (32-36); Mean Corpuscular Volume 101.4 FL (87-102); Mean Platelet Volume 10.3 FL (9.6-12.0); Monocytes % 7.4 % (1.7-12.7); Platelet Count 176 T/CUMM (130-400); Red Blood Count 2.92 MC/CUMM (3.8-5.5); White Blood Count 5.5 T/CUMM (4-12)
[2020-12-05 23:58] LABS: Partial Thromboplastin Time 32.5 SECS (23.8-32.1)
[2020-12-06 00:07] LABS: Alanine Aminotransferase 16 U/L (13-56); Albumin 2.1 G/DL (3.4-5.0); Alkaline Phosphatase 68 U/L (45-117); Aspartate Amino Transferase 29 U/L (0-37); Blood Urea Nitrogen 60 MG/DL (7-18); Calcium 9.1 MG/DL (8.5-10.1); Carbon Dioxide 24 MMOL/L (21-32); Estimated Glom Filtration Rate 27 ML/MIN; Glucose 168 MG/DL (74-106); Osmolality,Calculated 286.4 MOS/KG (273-304); Potassium 4.1 MMOL/L (3.5-5.1); Sodium 133 MMOL/L (136-145); Total Protein 9.7 G/DL (6.4-8.2)
[2020-12-06] MEDS ORDERED: SODIUM CHLORIDE 0.9% 1,000 ML IV STA (00:44)
[2020-12-06] MEDS ORDERED: ONDANSETRON 4 MG/2 ML VIAL IV PRN (02:55)
[2020-12-06] MEDS ORDERED: GLUCAGON 1 MG VIAL IM PRN (02:55)
[2020-12-06] MEDS ORDERED: DEXTROSE 50% 25 GM/50 ML VIAL IV PRN ×2 (02:55→03:47)
[2020-12-06] MEDS ORDERED: LACTATED RINGERS 1,000 ML IV SCH (03:00)
[2020-12-06] MEDS ORDERED: HEPARIN 5,000 UNIT/1 ML VIAL SUBCUT SCH (03:00)
[2020-12-06] MEDS ORDERED: ACETAMINOPHEN 650 MG SUPP RECTAL PRN (03:03)
[2020-12-06] MEDS: INSULIN LISPRO 100 UNIT/ML SUBCUT SCH ×3 (06:10→17:56)
[2020-12-06 06:32] LABS: Eosinophils % 0.2 % (0.00-10.9); Hematocrit 23.5 VOL% (35.7-47.0); Hemoglobin 6.9 GM/DL (12.0-16.0); Immature Granulocytes % 1.5 %; Immature Granulocytes Absolute 0.08 #; Lymphocytes # 0.4 10*3/uL (1.4-4.0); Lymphocytes % 7.9 % (21.3-54.2); Mean Corpuscular HGB Conc 29.4 GM/DL (32-36); Mean Corpuscular Volume 100.4 FL (87-102); Mean Platelet Volume 10.9 FL (9.6-12.0); Monocytes % 9.2 % (1.7-12.7); Neutrophils % 81.2 % (38.7-73.9); Platelet Count 163 T/CUMM (130-400); Red Blood Count 2.34 MC/CUMM (3.8-5.5); Red Cell Distribution Width 16.1 % (9.3-17.3); White Blood Count 5.5 T/CUMM (4-12)
[2020-12-06 06:47] LABS: Alanine Aminotransferase 11 U/L (13-56); Albumin 1.7 G/DL (3.4-5.0); Alkaline Phosphatase 61 U/L (45-117); Aspartate Amino Transferase 19 U/L (0-37); Bilirubin,Total < 0.39 MG/DL (0.20-1.00); Blood Urea Nitrogen 64 MG/DL (7-18); Calcium 8.4 MG/DL (8.5-10.1); Carbon Dioxide 24 MMOL/L (21-32); Estimated Glom Filtration Rate 36 ML/MIN; Glucose 162 MG/DL (74-106); Osmolality,Calculated 294.8 MOS/KG (273-304); Potassium 3.4 MMOL/L (3.5-5.1); Sodium 137 MMOL/L (136-145); Total Protein 8.2 G/DL (6.4-8.2)
[2020-12-06 06:48] LABS: % Iron Saturation 19.1 % (18-50)
[2020-12-06 07:20] LABS: Band Neutrophils 19 % (0-10); Lymphocytes 5 % (20-55); Nucleated Red Blood Cells 1 (0-5); Platelet Estimate Normal; Segmented Neutrophils 67 % (50-85); Total Cells Counted 100
[2020-12-06 07:21] LABS: Anisocytosis 1+; Hypochromasia 1+; Macrocytosis 1+; Tear Drop Cells 1+
[2020-12-06] MEDS ORDERED: traMADol 50 MG TABLET PO SCH (09:00)
[2020-12-06] MEDS: HEPARIN 5,000 UNIT/1 ML VIAL SUBCUT SCH ×2 (09:11→21:47)
[2020-12-06] MEDS ORDERED: SODIUM CHLORIDE 0.9% 1,000 ML IV PRN (10:43)
[2020-12-06] MEDS: VANCOMYCIN INJ 1,000 MG in SODIUM CHLORIDE 0.9% 250 ML IV SCH (12:37)
[2020-12-06] MEDS: PANTOPRAZOLE 40 MG VIAL IV SCH ×2 (12:40→21:47)
[2020-12-06] MEDS ORDERED: POTASSIUM CHLORIDE 20 MEQ TABLET PO ONE (15:43)
[2020-12-07] MEDS: cefTRIAXone 1,000 MG in SODIUM CHLORIDE 0.9% 100 ML IV SCH ×2 (01:45)
[2020-12-07] MEDS: INSULIN LISPRO 100 UNIT/ML SUBCUT SCH ×4 (01:45→19:17)
[2020-12-07 08:32] LABS: Calcium 8.6 MG/DL (8.5-10.1); Osmolality,Calculated 294.1 MOS/KG (273-304); Potassium 3.6 MMOL/L (3.5-5.1)
[2020-12-07 08:35] LABS: Basophils % 0.2 % (0.0-0.8); Eosinophils % 0.4 % (0.00-10.9); Hematocrit 23.3 VOL% (35.7-47.0); Hemoglobin 7.2 GM/DL (12.0-16.0); Immature Granulocytes % 2.2 %; Immature Granulocytes Absolute 0.11 #; Lymphocytes # 0.6 10*3/uL (1.4-4.0); Lymphocytes % 12.3 % (21.3-54.2); Mean Corpuscular HGB Conc 30.9 GM/DL (32-36); Mean Corpuscular Volume 100.4 FL (87-102); Mean Platelet Volume 10.7 FL (9.6-12.0); Monocytes % 12.1 % (1.7-12.7); NRBC # 0.02 10*3/uL; Neutrophils % 72.8 % (38.7-73.9); Platelet Count 174 T/CUMM (130-400); Red Blood Count 2.32 MC/CUMM (3.8-5.5); Red Cell Distribution Width 16.1 % (9.3-17.3); White Blood Count 4.9 T/CUMM (4-12)
[2020-12-07 09:27] LABS: Anisocytosis 2+; Macrocytosis 1+; Platelet Estimate Normal; Tear Drop Cells Few
[2020-12-07] MEDS: PANTOPRAZOLE 40 MG VIAL IV SCH ×2 (11:06→21:42)
[2020-12-07] MEDS: HEPARIN 5,000 UNIT/1 ML VIAL SUBCUT SCH ×2 (11:06→22:49)
[2020-12-07] MEDS: VANCOMYCIN INJ 1,000 MG in SODIUM CHLORIDE 0.9% 250 ML IV SCH (14:31)
[2020-12-07 20:07] LABS: Hematocrit 33.3 VOL% (35.7-47.0)
[2020-12-07 20:09] LABS: Hemoglobin 10.3 GM/DL (12.0-16.0)
[2020-12-08] MEDS: INSULIN LISPRO 100 UNIT/ML SUBCUT SCH ×5 (00:54→22:21)
[2020-12-08 06:19] LABS: Basophils % 0.4 % (0.0-0.8); Eosinophils % 0.4 % (0.00-10.9); Hematocrit 30.5 VOL% (35.7-47.0); Hemoglobin 9.9 GM/DL (12.0-16.0); Immature Granulocytes % 1.8 %; Lymphocytes # 1.1 10*3/uL (1.4-4.0); Lymphocytes % 19.2 % (21.3-54.2); Mean Corpuscular HGB Conc 32.5 GM/DL (32-36); Mean Corpuscular Volume 98.7 FL (87-102); Mean Platelet Volume 10.9 FL (9.6-12.0); Monocytes % 12.1 % (1.7-12.7); Neutrophils % 66.1 % (38.7-73.9); Platelet Count 192 T/CUMM (130-400); Red Blood Count 3.09 MC/CUMM (3.8-5.5); Red Cell Distribution Width 16.2 % (9.3-17.3); White Blood Count 5.6 T/CUMM (4-12)
[2020-12-08 06:44] LABS: Calcium 8.4 MG/DL (8.5-10.1); Osmolality,Calculated 287.3 MOS/KG (273-304); Potassium 3.6 MMOL/L (3.5-5.1)
[2020-12-08] MEDS: PANTOPRAZOLE 40 MG VIAL IV SCH ×2 (08:28→21:22)
[2020-12-08] MEDS: HEPARIN 5,000 UNIT/1 ML VIAL SUBCUT SCH ×2 (08:28→17:21)
[2020-12-08] MEDS: VANCOMYCIN INJ 1,000 MG in SODIUM CHLORIDE 0.9% 250 ML IV SCH (12:23)
[2020-12-08] MEDS: ASPIRIN EC 81 MG TABLET PO SCH (17:22)
[2020-12-08] MEDS: cefTRIAXone 1,000 MG in SODIUM CHLORIDE 0.9% 100 ML IV SCH (23:35)
[2020-12-09] MEDS: HEPARIN 5,000 UNIT/1 ML VIAL SUBCUT SCH ×3 (03:32→17:40)
[2020-12-09] MEDS: LEVOTHYROXINE 25 MCG TABLET PO SCH (06:14)
[2020-12-09] MEDS: INSULIN LISPRO 100 UNIT/ML SUBCUT SCH ×4 (08:52→21:47)
[2020-12-09] MEDS: PANTOPRAZOLE 40 MG VIAL IV SCH ×2 (10:10→21:47)
[2020-12-09] MEDS: ASPIRIN EC 81 MG TABLET PO SCH ×2 (10:10→17:40)
[2020-12-09] MEDS: ACETAMINOPHEN 325 MG TABLET PO PRN (18:30)
[2020-12-10] MEDS: cefTRIAXone 1,000 MG in SODIUM CHLORIDE 0.9% 100 ML IV SCH ×2 (00:31→23:01)
[2020-12-10] MEDS: HEPARIN 5,000 UNIT/1 ML VIAL SUBCUT SCH ×3 (00:32→17:29)
[2020-12-10] MEDS: ACETAMINOPHEN 325 MG TABLET PO PRN ×3 (04:56→23:07)
[2020-12-10] MEDS: LEVOTHYROXINE 25 MCG TABLET PO SCH (06:40)
[2020-12-10 07:23] LABS: Basophils % 0.3 % (0.0-0.8); Hemoglobin 9.3 GM/DL (12.0-16.0); Immature Granulocytes % 3.3 %; Immature Granulocytes Absolute 0.13 #; Lymphocytes # 0.7 10*3/uL (1.4-4.0); Lymphocytes % 18.1 % (21.3-54.2); Mean Corpuscular HGB Conc 32.1 GM/DL (32-36); Mean Corpuscular Volume 96.3 FL (87-102); Mean Platelet Volume 10.2 FL (9.6-12.0); Monocytes % 8.7 % (1.7-12.7); Neutrophils % 68.6 % (38.7-73.9); Platelet Count 234 T/CUMM (130-400); Red Blood Count 3.01 MC/CUMM (3.8-5.5); Red Cell Distribution Width 15.9 % (9.3-17.3); White Blood Count 3.9 T/CUMM (4-12)
[2020-12-10 07:57] LABS: Calcium 8.1 MG/DL (8.5-10.1); Osmolality,Calculated 280.4 MOS/KG (273-304); Potassium 3.3 MMOL/L (3.5-5.1)
[2020-12-10] MEDS: INSULIN LISPRO 100 UNIT/ML SUBCUT SCH ×4 (08:09→20:11)
[2020-12-10] MEDS: ASPIRIN EC 81 MG TABLET PO SCH ×2 (08:14→17:28)
[2020-12-10] MEDS: PANTOPRAZOLE 40 MG VIAL IV SCH (08:14)
[2020-12-10] MEDS ORDERED: MAGNESIUM SULF RIDER 4 GM/100 ML PREMIX IV ONE (11:00)
[2020-12-11] MEDS: HEPARIN 5,000 UNIT/1 ML VIAL SUBCUT SCH ×3 (00:09→16:59)
[2020-12-11 05:38] LABS: Basophils % 0.2 % (0.0-0.8); Eosinophils % 0.7 % (0.00-10.9); Hematocrit 29.1 VOL% (35.7-47.0); Hemoglobin 9.4 GM/DL (12.0-16.0); Immature Granulocytes % 2.9 %; Immature Granulocytes Absolute 0.12 #; Lymphocytes # 0.8 10*3/uL (1.4-4.0); Mean Corpuscular HGB Conc 32.3 GM/DL (32-36); Mean Corpuscular Volume 99.3 FL (87-102); Mean Platelet Volume 10.3 FL (9.6-12.0); Monocytes % 8.3 % (1.7-12.7); Neutrophils % 67.9 % (38.7-73.9); Platelet Count 248 T/CUMM (130-400); Red Blood Count 2.93 MC/CUMM (3.8-5.5); Red Cell Distribution Width 15.6 % (9.3-17.3); White Blood Count 4.1 T/CUMM (4-12)
[2020-12-11] MEDS: LEVOTHYROXINE 25 MCG TABLET PO SCH (05:49)
[2020-12-11] MEDS: PANTOPRAZOLE 40 MG TABLET PO SCH (05:49)
[2020-12-11 05:52] LABS: Osmolality,Calculated 276.5 MOS/KG (273-304); Potassium 3.2 MMOL/L (3.5-5.1)
[2020-12-11] MEDS: INSULIN LISPRO 100 UNIT/ML SUBCUT SCH ×4 (07:38→23:06)
[2020-12-11] MEDS: ASPIRIN EC 81 MG TABLET PO SCH ×2 (09:32→17:00)
[2020-12-11] MEDS: ACETAMINOPHEN 325 MG TABLET PO PRN (23:11)
[2020-12-11] MEDS: cefTRIAXone 1,000 MG in SODIUM CHLORIDE 0.9% 100 ML IV SCH (23:12)
[2020-12-12] MEDS: HEPARIN 5,000 UNIT/1 ML VIAL SUBCUT SCH ×3 (01:09→17:22)
[2020-12-12 05:40] LABS: Basophils % 0.3 % (0.0-0.8); Eosinophils % 0.9 % (0.00-10.9); Hematocrit 31.8 VOL% (35.7-47.0); Hemoglobin 9.9 GM/DL (12.0-16.0); Immature Granulocytes % 2.6 %; Immature Granulocytes Absolute 0.09 #; Lymphocytes # 0.7 10*3/uL (1.4-4.0); Lymphocytes % 20.9 % (21.3-54.2); Mean Corpuscular HGB Conc 31.1 GM/DL (32-36); Mean Corpuscular Volume 98.5 FL (87-102); Mean Platelet Volume 10.1 FL (9.6-12.0); Monocytes % 6.9 % (1.7-12.7); Neutrophils % 68.4 % (38.7-73.9); Platelet Count 269 T/CUMM (130-400); Red Blood Count 3.23 MC/CUMM (3.8-5.5); Red Cell Distribution Width 15.6 % (9.3-17.3); White Blood Count 3.5 T/CUMM (4-12)
[2020-12-12 06:06] LABS: Osmolality,Calculated 273.7 MOS/KG (273-304); Potassium 3.4 MMOL/L (3.5-5.1)
[2020-12-12 06:08] LABS: Band Neutrophils 1 % (0-10); Eosinophils 2 % (0-10); Hypochromasia 1+; Lymphocytes 18 % (20-55); Segmented Neutrophils 73 % (50-85); Total Cells Counted 100
[2020-12-12 06:09] LABS: Microcytosis 1+; Ovalocytes Slight; Tear Drop Cells Slight
[2020-12-12 06:10] LABS: Platelet Estimate Normal
[2020-12-12] MEDS: LEVOTHYROXINE 25 MCG TABLET PO SCH (07:16)
[2020-12-12] MEDS: PANTOPRAZOLE 40 MG TABLET PO SCH (07:16)
[2020-12-12] MEDS: INSULIN LISPRO 100 UNIT/ML SUBCUT SCH ×4 (10:41→22:00)
[2020-12-12] MEDS: ASPIRIN EC 81 MG TABLET PO SCH ×2 (10:43→17:21)
[2020-12-12] MEDS: cefTRIAXone 1,000 MG in SODIUM CHLORIDE 0.9% 100 ML IV SCH (22:29)
[2020-12-13] MEDS: HEPARIN 5,000 UNIT/1 ML VIAL SUBCUT SCH ×3 (01:19→17:22)
[2020-12-13] MEDS: LEVOTHYROXINE 25 MCG TABLET PO SCH (06:47)
[2020-12-13] MEDS: PANTOPRAZOLE 40 MG TABLET PO SCH (06:47)
[2020-12-13] MEDS: INSULIN LISPRO 100 UNIT/ML SUBCUT SCH ×4 (09:20→23:07)
[2020-12-13] MEDS: ASPIRIN EC 81 MG TABLET PO SCH ×2 (09:20→17:20)
[2020-12-13] MEDS: cefTRIAXone 1,000 MG in SODIUM CHLORIDE 0.9% 100 ML IV SCH (23:18)
[2020-12-14] MEDS: HEPARIN 5,000 UNIT/1 ML VIAL SUBCUT SCH ×3 (00:44→17:16)
[2020-12-14 05:56] LABS: Basophils % 0.3 % (0.0-0.8); Eosinophils # 0.1 10*3/uL (0.0-0.87); Eosinophils % 1.3 % (0.00-10.9); Hematocrit 28.3 VOL% (35.7-47.0); Immature Granulocytes % 2.4 %; Immature Granulocytes Absolute 0.09 #; Lymphocytes % 25.2 % (21.3-54.2); Mean Corpuscular HGB Conc 31.8 GM/DL (32-36); Mean Corpuscular Volume 100.4 FL (87-102); Mean Platelet Volume 10.2 FL (9.6-12.0); Monocytes % 8.4 % (1.7-12.7); Neutrophils % 62.4 % (38.7-73.9); Platelet Count 269 T/CUMM (130-400); Red Blood Count 2.82 MC/CUMM (3.8-5.5); Red Cell Distribution Width 15.7 % (9.3-17.3); White Blood Count 3.8 T/CUMM (4-12)
[2020-12-14 06:23] LABS: Calcium 8.2 MG/DL (8.5-10.1); Osmolality,Calculated 277.4 MOS/KG (273-304); Potassium 3.8 MMOL/L (3.5-5.1)
[2020-12-14] MEDS: LEVOTHYROXINE 25 MCG TABLET PO SCH (06:33)
[2020-12-14] MEDS: PANTOPRAZOLE 40 MG TABLET PO SCH (06:33)
[2020-12-14] MEDS: INSULIN LISPRO 100 UNIT/ML SUBCUT SCH ×4 (07:08→22:27)
[2020-12-14 07:39] LABS: Eosinophils 1 % (0-10); Hypochromasia 1+; Lymphocytes 25 % (20-55); Microcytosis 1+; Platelet Estimate Adequate; Segmented Neutrophils 64 % (50-85); Total Cells Counted 100
[2020-12-14] MEDS: ASPIRIN EC 81 MG TABLET PO SCH ×2 (08:15→17:16)
[2020-12-15] MEDS: HEPARIN 5,000 UNIT/1 ML VIAL SUBCUT SCH ×3 (01:40→17:20)
[2020-12-15] MEDS: cefTRIAXone 1,000 MG in SODIUM CHLORIDE 0.9% 100 ML IV SCH (01:40)
[2020-12-15] MEDS: PANTOPRAZOLE 40 MG TABLET PO SCH (06:32)
[2020-12-15] MEDS: LEVOTHYROXINE 25 MCG TABLET PO SCH (06:32)
[2020-12-15] MEDS: INSULIN LISPRO 100 UNIT/ML SUBCUT SCH ×4 (08:50→20:11)
[2020-12-15] MEDS: MULTIVITAMIN (CENTRUM) TABLET PO SCH (08:51)
[2020-12-15] MEDS: ASPIRIN EC 81 MG TABLET PO SCH ×2 (08:51→17:18)
[2020-12-16] MEDS: cefTRIAXone 1,000 MG in SODIUM CHLORIDE 0.9% 100 ML IV SCH ×2 (00:42→23:05)
[2020-12-16] MEDS: HEPARIN 5,000 UNIT/1 ML VIAL SUBCUT SCH ×3 (00:43→16:31)
[2020-12-16] MEDS: LEVOTHYROXINE 25 MCG TABLET PO SCH (06:31)
[2020-12-16] MEDS: PANTOPRAZOLE 40 MG TABLET PO SCH (06:31)
[2020-12-16] MEDS: INSULIN LISPRO 100 UNIT/ML SUBCUT SCH ×4 (08:43→23:04)
[2020-12-16] MEDS ORDERED: LORazepam 2 MG/1 ML VIAL IV ONE (11:03)
[2020-12-16] MEDS: ASPIRIN EC 81 MG TABLET PO SCH ×2 (16:03→18:49)
[2020-12-16] MEDS: MULTIVITAMIN (CENTRUM) TABLET PO SCH (16:03)
[2020-12-17] MEDS: HEPARIN 5,000 UNIT/1 ML VIAL SUBCUT SCH ×2 (02:15→08:54)
[2020-12-17] MEDS: LEVOTHYROXINE 25 MCG TABLET PO SCH (06:48)
[2020-12-17] MEDS: PANTOPRAZOLE 40 MG TABLET PO SCH (06:48)
[2020-12-17] MEDS: MULTIVITAMIN (CENTRUM) TABLET PO SCH (08:54)
[2020-12-17] MEDS: ASPIRIN EC 81 MG TABLET PO SCH (08:54)
[2020-12-17] MEDS: INSULIN LISPRO 100 UNIT/ML SUBCUT SCH ×2 (09:58→12:56)
[2020-12-17 16:03] VITALS: BP 110/59
== END 2020-12-17 16:12 | disposition hospice, inpatient (51) | DRG 689 ==
LOC: EDUNIT# → EDBD → N.ED 21:35 → SUATTDRO 12-06 03:25 → N.EDINP 12-06 03:25 → N.5E 12-06 03:57
PROVIDERS: ADMIT Internal Medicine; ATTEND Internal Medicine